=== PATIENT | female | born 2000 | race Caucasian/White ===

== ENCOUNTER 2019-05-18 15:20 | Outpatient (CLI) | payer SELFPAY ==
--- NOTE | 2019-05-18 | US_ITS ---
WS: [id number] ULTRASOUND OB TWINS HISTORY: 16 WEEKS GESTATION OF COMPARISON: None available. FETUS A Presentation: Vertex, maternal RIGHT. Placenta: Posterior, no previa or abruption. Grade 1. HEART: FHR of 146 BPM. measurements: BPD = 5.0 cm = 21w0d HC = 18.1 cm = 20w4d AC = 15.7 cm = 20w6d FL = 3.6 cm = 21w2d Normal amniotic fluid surrounds the fetus. Screening anatomy demonstrates normal intracranial structures. Spine, kidneys, stomach, bladder, abdo reece wall, three-vessel cord, extremities are normal. profile normal. AGA by ultrasound: 21 weeks 0 day BELLA by ultrasound: 09/28/2019 FETUS B Presentation: Transverse maternal LEFT. Placenta: Posterior, no previa or abruption. HEART: FHR of 148 BPM. measurements: BPD = 4.9 cm = 20w6d HC = 17.7 cm= 20w1d AC = 16.1 cm = 21w1d FL = 3.6 cm = 21w2d Normal amniotic fluid surrounds the fetus. Screening anatomy demonstrates normal intracranial structures. Spine, kidneys, stomach, bladder, abdo reece wall, three-vessel cord, extremities are normal. profile and limited. AGA by ultrasound: 21 weeks 0 day BELLA by ultrasound: 09/28/2019 US/US OB >= 14 wk fetus twins IMPRESSION: 1. Twin gestation A. * Vertex maternal RIGHT. * 21 weeks 0 day with an EDC of 09/28/2019. * Normal screening anatomic survey. 2. Twin gestation B. * Transverse on maternal LEFT. * 21 weeks 0 day with an EDC of 09/28/2019. * Normal screening anatomic survey. Limited profile. 3. Normal amniotic fluid. Chronicity and amnionicity is difficult to determine at this late gestational age. There is a membrane measuring 2 mm. O nly a single placenta was evident.
== END 2019-05-18 15:21 | disposition home or self-care (01) ==
PROVIDERS: Family Provider Family Medicine; Visit Provider Family Medicine
DX: Z76.89 Persons encountering health services in other specified circumstances (principal)

== ENCOUNTER 2019-06-07 21:35 | Outpatient (CLI) | payer MEDICAID, SELFPAY ==
[2019-06-07] VITALS (13 sets, daily range): BP systolic 0–164; BP diastolic 0–100; PULSE 84–101; O2SAT 100; BMI 35.6
[2019-06-07] MEDS: labetalol 200 mg Tablet PO (22:36)
[2019-06-07] MEDS: pantoprazole DR 40 mg Tablet PO (22:36)
[2019-06-07 22:54] LABS: Bacteria Urine 1+; Bilirubin Urine Neg (NEGATIVE); Blood Urine Neg (Negative); Glucose Urine UA 1+ (Normal); Ketones Urine Negative (Negative); Leukocyte Esterase Urine Negative (Negative); Mucus Urine 1+; Nitrate Urine Negative (Negative); Protein Urine Neg (Negative); RBC Urine 0-4 /hpf (0-2); Squamous Epithelial Cell Urine 25-40 (0-5); Urine Appearance Clear (CLEAR); Urine Color Yellow (Yellow); Urobilinogen Urine Norm (Negative); WBC Urine 0-4 /hpf (0-5); pH Urine 6 (5-7)
== END 2019-06-07 23:30 | disposition home or self-care (01) ==
LOC: OPOB 21:48 → OBGYN 23:30 → OPOB 06-08 14:18
PROVIDERS: Family Provider Family Medicine; Visit Provider Family Medicine
DX: O26.899 Other specified pregnancy related conditions, unspecified trimester (principal); Z3A.00 Weeks of gestation of pregnancy not specified; R10.9 Unspecified abdominal pain
CPT/HCPCS: 81001; 99211

== ENCOUNTER 2019-06-15 08:30 | Inpatient (IN) | payer MEDICAID, SELFPAY ==
[2019-06-14 19:31] VITALS: TEMP 36.6
[2019-06-14 19:33] VITALS: BMI 35.6
[2019-06-14] MEDS: labetalol 200 mg Tablet PO (19:43)
[2019-06-14 20:10] LABS: Bacteria Urine 1+; Bilirubin Urine Neg (NEGATIVE); Blood Urine Neg (Negative); Glucose Urine UA Norm (Normal); Ketones Urine Negative (Negative); Leukocyte Esterase Urine Negative (Negative); Nitrate Urine Negative (Negative); Protein Urine Neg (Negative); RBC Urine RARE /hpf (0-2); Urine Appearance Clear (CLEAR); Urine Color Yellow (Yellow); Urobilinogen Urine Norm (Negative); WBC Urine RARE /hpf (0-5); pH Urine 6 (5-7)
[2019-06-14 20:35] VITALS: TEMP 37
[2019-06-14] MEDS: magnesium sulfate premix 4 GM/100 ML PREMIX IV (21:11)
[2019-06-14] MEDS: dextrose 5%-lactated ringers 1,000 ML 75 ML IV (21:11)
[2019-06-14] MEDS: magnesium sulfate premix 20 GM/500 ML BAG IV (21:12)
[2019-06-14 21:50] LABS: Basophils % 0.3 %; Eosinophils # 0.1 10^3/uL (0.0-0.8); Eosinophils % 0.5 %; Hematocrit 31.6 % (37.0-47.0); Lymphocytes # 2.4 10^3/uL (0.8-4.8); Mean Corpuscular HGB Conc 31.6 g/dL (30.0-36.0); Mean Corpuscular Hemoglobin 28.5 pg (28.0-34.0); Mean Platelet Volume 12.9 fL (7.4-10.4); Monocytes % 9.4 %; Neutrophils % 66.5 %; Nucleated Red Blood Cells % 0 %; Platelet Count 173 10^3/cmm (130-400); Red Blood Count 3.51 10^6/uL (4.1-5.3); Red Cell Distribution Width 14.1 % (12.1-15.1); White Blood Count 10.5 10^3/uL (4.0-10.0)
[2019-06-14 22:13] LABS: Alanine Aminotransferase 42 U/L (0-33); Alkaline Phosphatase 118 IU/L (35-105); Anion Gap 15.6 (5-19); Aspartate Amino Transferase 27 U/L (0-32); Blood Urea Nitrogen 9 mg/dL (6-20); Calcium 9.1 mg/dL (8.5-10.5); Carbon Dioxide 21 mmol/L (22-29); Chloride 103 mmol/L (98-107); Glomerular Filtration Rate 126.2 mL/min (90-130); Glucose 113 mg/dL (65-115); Magnesium 3.9 mg/dL (1.7-2.3); Osmolality Calculated 279 mOsm/kg (285-295); Potassium 3.6 mmol/L (3.5-5.1); Sodium 136 mmol/L (136-145); Total Bilirubin 0.2 mg/dL (0.15-1.2)
[2019-06-15] VITALS (159 sets, daily range): BP systolic 91–167; BP diastolic 47–81; PULSE 72–110; RESP 17; TEMP 36.7–37; O2SAT 95–100
[2019-06-15 03:25] LABS: Magnesium Level (OB Only) 6.3 mg/dL (5.0-7.5)
[2019-06-15] MEDS: dextrose 5%-lactated ringers 1,000 ML 75 ML IV ×2 (04:35→17:59)
[2019-06-15] MEDS: magnesium sulfate premix 20 GM/500 ML BAG IV ×2 (05:45→15:39)
--- NOTE | 2019-06-15 06:21 | US_ITS ---
WS: [id number] ULTRASOUND OB LIMITED TECHNIQUE: Limited ultrasound examination of the fetus. CLINICAL INFORMATION: Decreased variability of baby B COMPARISON: May 18, 2019 FINDINGS: Twin interuterine gestation with single placenta and intervening septum Placental location is posterior. Placenta grade: 0. heart rate 133 BPM for twin A and B. Normal GILDARDO TWIN A AND B Biophysical profile 8 out of 8. breathin movement: 2 tone: 2 Amniotic fluid: 2 IMPRESSION Twin A and B Normal biophysical profile 8 out of 8
[2019-06-15] MEDS: acetaminophen 500 mg Tablet 1000 MG PO (06:39)
[2019-06-15] MEDS: labetalol 200 mg Tablet PO (06:49)
--- NOTE | 2019-06-15 07:48 | PM.HP ---
Providers/Chief Complaint Admitting Physician: Brenden Mejia MD Chief Complaint: thick vaginal discharge History of Present Illness Calli Morales is a 19 year old 1 female who is 25 weeks with twins. She has had intermittent pelvic pain throughout a good part of the . Recently she completed a course of metronidazole for vaginitis. She began having some pelvic pain beginning yesterday morning early. The pain seemed to go intermittent. She also lost some mucus and felt that she may have lost her mucous plug . [facility] labor and delivery yesterday evening with this complaint. Monitoring found her to be having contractions every 1-1/2 to 2 minutes and initially she stated that she was not feeling them at all. Later, she admitted to feeling them about a level 4-5. Gentle vaginal exam found her to be about 1 cm dilated and kin every 1-1/2 to 2 minutes. A decision was made to admit her and place her on magnesium for tocolyse this at that time. She denied any burning on urination, fever or chills. Evaluation with urinalysis and laboratory evaluation was pretty much normal last night. The 's have been placed on the monitor intermittently with some decreased variability now. Baby B had an occasional decelerations but overall by my evaluation the heart tones have been reassuring. The 's have a little bit decreased variability now with magnesium on board. Her contractions have almost completely stopped with the magnesium. Review of Systems Narrative: Patient has had elevated blood pressure but is extremely anxious this time. She also has had nausea and vomiting this morning although that is resolved after emesis. Const: Reports: change in appetite; Denies: fever or chills Eyes: Denies: change in vision or blurry vision ENMT: Denies: swelling of lips/tongue, oral sores/lesions, nasal congestion or nasal obstruction Card: Denies: chest pain, palpitations, irregular heart rhythm, edema or shortness of breath when lying down Resp: Denies: shortness of breath, productive cough, non-productive cough, wheezing or chest congestion GI: Reports: abdominal pain (Intermittent, this is resolved mostly.), nausea and vomiting; Denies: difficulty swallowing, heartburn/indigestion or rectal pain : Reports: urinary frequency and vaginal discharge (This is decreased now.); Denies: flank pain, difficulty urinating, blood in urine, genital itching, vaginal odor or vaginal bleeding Musc: Reports: back pain; Denies: neck pain, extremity swelling, muscle cramps or muscle weakness Skin/Breast: Denies: rash, itching or new lesion Neuro: Denies: weakness in extremities, difficulty walking or slurred speech Psych: Denies: anxiety, depression or memory loss Carlos/Lymph: Denies: easy bruising or enlarged lymph nodes Medications/Allergies Allergies Allergy/AdvReac Type Severity Reaction Status Date / Time Penicillins Allergy ALGY-Hives Verified 06/08/19 00:15 [facility] Acute Female Reproductive History: : 1 Vitals/I&O/Wt Last Vital Signs Temp 98.6 F 06/15/19 00:00 06/14/19 06/15/19 06/15/19 22:59 06:59 14:59 Intake Total 982.5 / 982.5 Output Total 45 / 45 1155 / 1200 Balance -45 / -45 -172.5 / -217.5 Weight last 48 hrs Weight 94.347 kg Weight 94.347 kg Physical Exam Const: COMMON NORMALS: no apparent distress, average body habitus, no limitations and healthy appearing EXAM LIMITATIONS: no physical limitations GENERAL APPEARANCE: cooperative, comfortable and anxious; not in distress ORIENTATION/CONSCIOUSNESS: Yes awake HENMT: COMMON NORMALS: moist oral mucous membranes HEAD & SCALP: normal to inspection Neck/C-Spine: COMMON NORMALS: full ROM, no lymphadenopathy and supple Resp: COMMON NORMALS: normal respiratory effort, no retractions, no use of accessory muscles and clear to auscultation bilaterally Cardio: COMMON NORMALS: no JVD, regular rate, regular rhythm, S1 normal heart sound, S2 normal heart sound, no clicks and no murmurs PERIPHERAL PULSES: pulses 2+ throughout (No significant edema.) GI: COMMON NORMALS: normal to inspection, nondistended, normoactive bowel sounds (Obviously .), soft to palpation and non-tender Back/Pelvis: COMMON NORMALS: no CVA tenderness Extremity: COMMON NORMALS: normal to inspection, full ROM and normal capillary refill Neuro: SENSORIUM/ORIENTATION: Yes alert SPEECH: speech normal GAIT: Yes normal gait Psych: APPEARANCE: Yes grossly normal ATTITUDE: Yes other (Slightly anxious.) Urinary Catheter Management^: Michelle: Cath Placed During This Visit: yes Urinary Catheter Date of Insertion: 06/14/19 Urinary Catheter Time of Insertion: 21:46 Data : 06/14/19 21:36 06/14/19 21:36 A&P Assessment and plan (1) Twin in second trimester: Biophysical profile done this morning demonstrates both infants at 8 out of 8 and therefore I am comfortable that other than the labor infants are doing well at this time. Status: Acute Code(s): O30.002 - Twin , unspecified number of placenta and unspecified number of amniotic sacs, second trimester (2) uterine contractions in second trimester, antepartum: 1. Will treat this as labor. The contractions have almost completely cleared with magnesium intravenously. Continue magnesium protocol at this time. 2. Betamethasone 12 mg IM daily x2 3. We will begin nifedipine XL 30 mg twice daily for continued tocolyse this and to help with blood pressure control. Status: Acute Code(s): O47.02 - False labor before 37 completed weeks of gestation, second trimester (3) induced hypertension, antepartum: 1. She has been given 2 total doses of labetalol with good results at that time. However, will switch to nifedipine XL for assistance with tocolysis this morning. We will watch closely for response and make adjustments in medication dosage as needed. Status: Acute Code(s): O13.9 - Gestational [-induced] hypertension without significant proteinuria, unspecified trimester Attestations Medical Necessity Statement*: This patient has a 25-week intrauterine with twins and has labor and -induced hypertension. She requires inpatient hospital stay probably greater than 2 midnights. She will require at least 24 hours more of intravenous magnesium with attempt to switch to oral nifedipine over the next 24 hours if she tolerates and if continues to provide tocolysis.. Time Spent in Patient Care: 16 - 35 minutes Coding Level of Care Code Acute Hebrew Professor for g Fwd Exam Comprehensive Diagnoses Twin in second trimester O30.002 uterine contractions in second trimester, antepartum O47.02 induced hypertension, antepartum O13.9
[2019-06-15] MEDS: betamethasone susp 6 mg/mL 5 mL 12 MG IM (08:31)
[2019-06-15] MEDS: NIFEdipine ER (24 hr) 30 mg Tablet PO ×2 (08:33→17:59)
[2019-06-16] VITALS (201 sets, daily range): BP systolic 0–160; BP diastolic 0–85; PULSE 61–105; RESP 16–17; TEMP 36.7–36.8; O2SAT 54–100
[2019-06-16] MEDS: magnesium sulfate premix 20 GM/500 ML BAG IV ×2 (02:00→13:59)
[2019-06-16 02:15] LABS: Magnesium Level (OB Only) 7.1 mg/dL (5.0-7.5)
[2019-06-16] MEDS: ondansetron 2 mg/ML SDV 2 mL 4 MG IVP ×2 (04:47→14:34)
[2019-06-16] MEDS: dextrose 5%-lactated ringers 1,000 ML 75 ML IV (06:44)
--- NOTE | 2019-06-16 07:17 | P.PN_ITS ---
Subjective Subjective: Interval history: Patient had some nausea earlier this morning which resolved with ondansetron. She has had no emesis. She has had no significant contractions and heart tones have looked good when monitored. Blood pressures have been 120s to 140 over 70s to 80s. Vitals/I&O/Wt Last Vital Signs Temp 98.1 F 06/15/19 10:40 Pulse 92 06/16/19 06:48 Resp 17 06/15/19 10:40 BP 125/67 06/16/19 06:48 Pulse Ox 96 06/16/19 07:09 06/15/19 06/16/19 06/16/19 22:59 06:59 14:59 Intake Total 2682.500 / 2802.500 1101.250 / 3903.750 Output Total 1150 / 2300 730 / 3030 Balance 1532.500 / 502.500 371.250 / 873.750 Weight last 48 hrs Weight 94.347 kg Weight 94.347 kg Physical Exam Const: COMMON NORMALS: no apparent distress and well nourished GENERAL APPEARANCE: cooperative and comfortable Chest: COMMONS NORMALS: inspection of chest normal Resp: COMMON NORMALS: normal respiratory effort, no retractions and no use of accessory muscles Cardio: COMMON NORMALS: regular rate, regular rhythm and no murmurs RATE: regular rate RHYTHM: regular rhythm GI: COMMON NORMALS: soft to palpation and non-tender PALPATION: Yes soft Extremity: COMMON NORMALS: normal to inspection, full ROM, normal capillary refill and no pedal edema Psych: COMMON NORMALS: mental status grossly normal, thought process normal, cooperative and activity/motor behavior normal THOUGHT PROCESS: normal thought process Urinary Catheter Management^: Michelle: Cath Placed During This Visit: yes Reason for Continuing Indwelling Catheter: Accurate Measurement of Urinary Output in Critically Ill Patients Urinary Catheter Date of Insertion: 06/14/19 Urinary Catheter Time of Insertion: 21:46 Data : 06/14/19 21:36 06/14/19 21:36 A&P Assessment and plan (1) induced hypertension, antepartum: Blood pressures are in much better control with nifedipine extended release twice daily as well as intravenous magnesium. The magnesium will be discontinued this morning and will monitor closely. The patient began having stronger contractions off of magnesium and therefore was begun back on magnesium at 2Grams/Hr and Nifedipine was increased to 60mg ER bid. Will monitor closely and will not attempt to wean off of Magnesium till at least Saturday Status: Acute Code(s): O13.9 - Gestational [-induced] hypertension without significant proteinuria, unspecified trimester (2) uterine contractions in second trimester, antepartum: No significant contractions since the magnesium was started. Nifedipine was started yesterday morning and will discontinue the magnesium today and monitor for increased contractions or problems. Mom will be receiving her second dose of betamethasone IM this morning. Magnesium restarted this afternoon as contractions resumed off of Magnesium. Status: Acute Code(s): O47.02 - False labor before 37 completed weeks of gestation, second trimester (3) Twin in second trimester: Biophysical profile on both infants look good yesterday with no significant problems. She is at risk for labor and delivery secondary to twin . Status: Acute Code(s): O30.002 - Twin , unspecified number of placenta and unspecified number of amniotic sacs, second trimester Attestations Medical Necessity Statement*: Patient has had labor and - induced hypertension with a twin and has required hospitalization. If patient continues to do well she may be able to be discharged this evening. There is a possibility she will require 1 more midnight hospital stay. Coding Level of Care Code Acute Police Superintendent for [place] Fwd Exam Detailed Diagnoses induced hypertension, antepartum O13.9 uterine contractions in second trimester, antepartum O47.02 Twin in second trimester O30.002
[2019-06-16] MEDS: betamethasone susp 6 mg/mL 5 mL 12 MG IM (08:44)
[2019-06-16] MEDS: NIFEdipine ER (24 hr) 30 mg Tablet PO ×2 (08:45→13:58)
[2019-06-16] MEDS: dextrose 5%-lactated ringers 1,000 ML 100 ML IV (13:58)
--- NOTE | 2019-06-16 14:18 | PC.NURSE ---
Pt called out c/o severe abd pain. Redan placed at this time. Abd very firm.
[2019-06-16] MEDS: fentaNYL 50 mcg/mL INJ 2mL 25 MCG IVP (15:59)
[2019-06-16] MEDS: NIFEdipine ER (24 hr) 30 mg Tablet 60 MG PO (19:38)
[2019-06-16 19:48] LABS: Magnesium Level (OB Only) 6.3 mg/dL (5.0-7.5)
[2019-06-16] MEDS: pantoprazole DR 40 mg Tablet PO (21:37)
[2019-06-16] MEDS: fentaNYL 50 mcg/mL INJ 2mL IVP ×2 (21:38→23:59)
[2019-06-17] VITALS (67 sets, daily range): BP systolic 0–161; BP diastolic 0–84; PULSE 72–112; RESP 16–20; TEMP 36.7–36.9; O2SAT 97–98
[2019-06-17] MEDS: dextrose 5%-lactated ringers 1,000 ML 75 ML IV (01:08)
[2019-06-17] MEDS: magnesium sulfate premix 20 GM/500 ML BAG IV ×2 (01:09→14:16)
[2019-06-17 01:34] LABS: Magnesium Level (OB Only) 7.7 mg/dL (5.0-7.5)
[2019-06-17] MEDS: fentaNYL 50 mcg/mL INJ 2mL IVP ×8 (02:32→19:13)
[2019-06-17] MEDS: ondansetron 2 mg/ML SDV 2 mL 4 MG IVP ×2 (04:58→18:49)
--- NOTE | 2019-06-17 06:40 | US_ITS ---
WS: [id number] RIGHT UPPER QUADRANT ULTRASOUND HISTORY: Right upper quadrant abdominal pain COMPARISON: None available. Liver: 12.1 cm in length. Normal size and echogenicity with no intrahepatic dilatation. No mass. Gallbladder: Normally distended gallbladder. There are stones and sludge in the gallbladder. There ar e numerous small stones within the gallbladder. No wall thickening or edema. CBD: 0.8 cm, common bile duct is slightly dilated. Pancreas: Obscured by bowel gas. Right kidney: 11.8 cm in length. Normal size kidney with mild dilatation of the renal pelvis. Aorta and IVC: Unremarkable. No ascites. US/US gall bladder [id number] IMPRESSION: 1. Cholelithiasis and sludge. 2. Mild dilatation of the common bile duct. Suspicious for choledocholithiasis . The stones within the gallbladder very tiny and there could be a small stone with partial obstruction in the duct. MRCP may be necessary for further evaluat ion. 3. Minimal dilatation RIGHT renal pelvis.
--- NOTE | 2019-06-17 06:43 | PM.PN ---
Subjective Subjective: Interval history: Patient began having contractions again a few hours after stopping the magnesium yesterday. Therefore, the magnesium was restarted at 2 g an hour. Magnesium level this morning early was a little elevated at 7.7 therefore the magnesium dose was decreased to 1.5 g an hour. She is not kin and the heart tones have looked reassuring. However, she has developed right upper quadrant and epigastric pain which is unrelated to contractions. She has no fever and no chills. She has had some nausea with no emesis. She is having normal bowel movements. Vitals/I&O/Wt Last Vital Signs Temp 98.0 F 06/16/19 17:45 Pulse 93 06/17/19 06:35 Resp 16 06/17/19 06:42 BP 149/78 06/17/19 06:35 Pulse Ox 98 06/17/19 02:10 06/16/19 06/16/19 06/17/19 14:59 22:59 06:59 Intake Total 666.667 / 666.667 879.167 / 6552.273 4733.333 / 2599.167 Output Total 600 / 600 350 / 950 850 / 1800 Balance 66.667 / 66.667 529.167 / 595.834 203.333 / 799.167 Physical Exam Const: COMMON NORMALS: alert and well nourished GENERAL APPEARANCE: cooperative ORIENTATION/CONSCIOUSNESS: Yes awake Chest: COMMONS NORMALS: inspection of chest normal Resp: COMMON NORMALS: normal respiratory effort, no retractions, no use of accessory muscles and clear to auscultation bilaterally AUSCULTATION: clear to auscultation bilaterally Cardio: COMMON NORMALS: regular rate, regular rhythm and no murmurs RATE: regular rate RHYTHM: regular rhythm GI: COMMON NORMALS: negative for no masses (She is .) PALPATION: Yes tender Details: RUQ (Significant tenderness in the right upper quadrant with no significant guarding.) Extremity: COMMON NORMALS: normal to inspection and full ROM Neuro: SENSORIUM/ORIENTATION: Yes alert GAIT: Yes normal gait Urinary Catheter Management^: Michelle: Cath Placed During This Visit: yes, but has since been removed by the nurse Reason for Continuing Indwelling Catheter: Decision to DC Catheter Urinary Catheter Date of Insertion: 06/14/19 Urinary Catheter Time of Insertion: 21:46 Date Urinary Catheter Removed: 06/16/19 Time Urinary Catheter Discontinued: 07:52 Data : 06/14/19 21:36 06/14/19 21:36 A&P Assessment and plan (1) induced hypertension, antepartum: Blood pressure is stable at present time with present medications. Status: Acute Code(s): O13.9 - Gestational [-induced] hypertension without significant proteinuria, unspecified trimester (2) uterine contractions in second trimester, antepartum: Contractions are now controlled on magnesium and nifedipine. Status: Acute Code(s): O47.02 - False labor before 37 completed weeks of gestation, second trimester (3) Twin in second trimester: appears to be going well with good and reassuring heart tones. Status: Acute Code(s): O30.002 - Twin , unspecified number of placenta and unspecified number of amniotic sacs, second trimester (4) Right upper quadrant abdominal pain: Significant right upper quadrant pain consistent with gallbladder dysfunction versus cholecystitis. Will check ultrasound this morning for evaluation. We will also treat as indicated. Status: Acute Code(s): R10.11 - Right upper quadrant pain Attestations Medical Necessity Statement*: This patient has significant medical problems with twin and labor. She is requiring intravenous magnesium to control her contractions and requires further hospital stay. I expect this hospital stay to be greater than 2 more midnights. Time Spent in Patient Care: 16 - 35 minutes Coding Level of Care Code Acute General Service Technician for [employer] Fw[employer]ito Diagnoses induced hypertension, antepartum O13.9 uterine contractions in second trimester, antepartum O47.02 Twin in second trimester O30.002 Right upper quadrant abdominal pain R10.11
[2019-06-17 07:28] LABS: Magnesium Level (OB Only) 7.7 mg/dL (5.0-7.5)
--- NOTE | 2019-06-17 07:46 | PC.NURSE ---
Critical Lab Assessment Critical Magnesium level called to Dr. Mejia at 0735, he was already aware of elevated level due to magnesium infusion rate being 2 grams/hr until 0500, so results not demonstrating the change at this time. Orders received to continue with 1.5 grams/hour and Q6Hour magnesium levels drawn.
[2019-06-17] MEDS: NIFEdipine ER (24 hr) 30 mg Tablet 60 MG PO ×2 (09:26→17:45)
[2019-06-17] MEDS: pantoprazole DR 40 mg Tablet PO ×2 (09:29→17:45)
--- NOTE | 2019-06-17 11:54 | MR_ITS ---
WS: [id number] MRCP, 06/17/2019 Clinical Data: possible choledocholithiasis Comparison: Gallbladder ultrasound, 06/17/2019 Findings: The pancreas is normal with no evidence of any pancreatitis, pseudocyst, abscess, mass or ductal dila tion. The distal pancreatic duct empties normally into the descending duodenum with no evidence of any stri cture or intraluminal defect. The gallbladder shows small stones within. The common bile duct shows no definite intraluminal filling defects. The liver, spleen, kidneys, stomach, abdominal aorta and inferior vena cava are unremarkable. There i s a twin intrauterine . MR/MR MRCP [id number] Impression: 1. Negative for definite common bile duct stone. 2. Slightly dilated gallbladder with small stones within. 3. When .
--- NOTE | 2019-06-17 12:08 | P.CONIM_ITS ---
Providers/Reason For Consult Consulting Physican/Specialty*: General Surgery Hunter Le MD Reason for Consult*: Possible gallbladder problems during . Attending Physician: Brenden Mejia MD History of Present Illness History of Present Illness Calli Morales is a 19 year old female who was recently admitted for labor. She is carrying twins and is at 25 weeks gestation. She has been on magnesium and her contractions have slowed down. This morning she developed right upper quadrant pain that went around to the right side of her back. She has been nauseated with it. She feels gassy and bloated but says I thought that was just normal stuff. The patient had an ultrasound which revealed cholelithiasis and gallbladder sludge. The common bile duct was felt to be slightly dilated at 8 mm. In talking to the patient, she has been having episodes of right upper quadrant pain after eating greasy food and potatoes over the past 4 to 6 weeks. She develops nausea and vomiting with this. In short, it sounds like she has been dealing with symptoms of biliary colic over that time period. Review of Systems General: Reports: 10 or more systems reviewed and unremarkable except in HPI and below GI: Reports: abdominal pain, nausea and vomiting : Reports: urinary frequency Meds/Allergies Home Medications and Allergies Home Medications Medication Instructions Recorded Confirmed Type PNV cmb#95-ferrous fumarate-FA 1 tab PO DAILY 06/08/19 06/15/19 History [] Allergies Allergy/AdvReac Type Severity Reaction Status Date / Time Penicillins Allergy ALGY-Hives Verified 06/08/19 00:15 Current Medications Current Medications Generic Name Dose Route Start Last Admin Trade Name Freq PRN Reason Stop Dose Admin Fentanyl 25 - 100 mcg 06/16/19 21:25 06/17/19 10:17 Sublimaze IVP 50 mcg Q1H PRN Administration SEVERE PAIN Dextrose/Lactated Ringer's 1,000 mls @ 125 mls/hr 06/14/19 20:45 06/17/19 01:08 Dextrose 5%-Lactated Ringers IV 75 mls/hr .Q8H YAHIR Administration Magnesium Sulfate 20 gm in 500 mls @ 50 mls/hr 06/14/19 20:45 06/17/19 07:00 Magnesium Sulfate Premix IV Infused .Q10H YAHIR Infusion Dextrose/Lactated Ringer's 1,000 mls @ 125 mls/hr 06/16/19 13:30 06/17/19 07:00 Dextrose 5%-Lactated Ringers IV Infused .Q8H YAHIR Infusion Magnesium Sulfate 20 gm in 500 mls @ 50 mls/hr 06/16/19 13:30 06/17/19 04:51 Magnesium Sulfate Premix IV 37.5 mls/hr .Q10H YAHIR Infusion Nifedipine 60 mg 06/16/19 19:15 06/17/19 09:26 Procardia Xl PO 60 mg BID YAHIR Administration Ondansetron HCl 4 mg 06/16/19 04:07 06/17/19 04:58 Zofran IVP 4 mg Q4H PRN Administration NAUSEA AND VOMITING Pantoprazole Sodium 40 mg 06/16/19 21:24 06/17/19 09:29 Protonix PO 40 mg BID YAHIR Administration PFSH Acute PFSH: Medical History (Updated 06/17/19 @ 12:16 by Hunter Le MD) No significant past medical history Surgical History (Updated 06/17/19 @ 12:16 by Hunter Le MD) No significant past surgical history Female Reproductive History: Date of last menstrual period: 07/23/18 : 1 Vitals/I&O/Wt Last Vital Signs Temp 98.2 F 06/17/19 10:25 Pulse 90 06/17/19 11:34 Resp 17 06/17/19 10:25 BP 152/70 06/17/19 11:34 Pulse Ox 98 06/17/19 02:10 06/16/19 06/17/19 06/17/19 22:59 06:59 14:59 Intake Total 1160.417 / 2816.250 989.166 / 2816.250 0 / 0 Output Total 350 / 1800 850 / 1800 250 / 250 Balance 810.417 / 1016.250 139.166 / 1016.250 -250 / -250 Physical Exam Narrative: EXAM NARRATIVE: The patient was encountered upon the obstetrics floor. She does not appear to be in any acute distress. The pupils are equal. No carotid bruits are heard. The lungs are clear anteriorly. The heart is regular. The abdomen is gravid. She does have some tenderness fairly well isolated to the right upper quadrant. Her abdomen is somewhat firm with some guarding. The extremities reveal no significant edema. Neurologically the patient appears to be grossly intact. Urinary Catheter Management^: Michelle: Cath Placed During This Visit: yes, but has since been removed by the nurse Reason for Continuing Indwelling Catheter: Decision to DC Catheter Urinary Catheter Date of Insertion: 06/14/19 Urinary Catheter Time of Insertion: 21:46 Date Urinary Catheter Removed: 06/16/19 Time Urinary Catheter Discontinued: 07:52 Data Imaging^: US: Radiologist's impression: IMPRESSION: 1. Cholelithiasis and sludge. 2. Mild dilatation of the common bile duct. Suspicious for choledocholithiasis. The stones within the gallbladder very tiny and there could be a small stone with partial obstruction in the duct. MRCP may be necessary for further evaluation. 3. Minimal dilatation RIGHT renal pelvis. A&P Assessment and plan (1) Biliary colic: It sounds to me like the patient has been having symptoms of biliary colic over the past 4 to 6 weeks. Given her mild dilatation of her common bile duct on ultrasound this morning, consideration has to be given to the possibility of choledocholithiasis. I am going to check a liver profile in addition to a serum amylase/lipase. After discussing the issue with Dr. Mejia, I am also going to order an MRCP; if she does have evidence of choledocholithiasis I want to make sure that we know this as soon as possible given her current . Further recommendations will be pending the results of the above. Status: Acute Code(s): K80.50 - Calculus of bile duct without cholangitis or cholecystitis without obstruction Consult Attestations Medical Necessity Statement: See admitting service's notation. Coding Level of Care Code Acute Regional Economist for Nell Nery Diagnoses Biliary colic K80.50
[2019-06-17 12:52] LABS: Basophils % 0.1 %; Hematocrit 31.4 % (37.0-47.0); Hemoglobin 9.8 g/dL (11.5-15.3); Lymphocytes # 1.9 10^3/uL (0.8-4.8); Lymphocytes % 13.4 %; Mean Corpuscular HGB Conc 31.2 g/dL (30.0-36.0); Mean Corpuscular Hemoglobin 28.2 pg (28.0-34.0); Mean Corpuscular Volume 90.2 fL (81-99); Mean Platelet Volume 13.2 fL (7.4-10.4); Monocytes # 1.3 10^3/uL (0.2-0.9); Neutrophils # 11.1 10^3/uL (1.8-7.7); Neutrophils % 77.2 %; Nucleated Red Blood Cells % 0 %; Platelet Count 221 10^3/cmm (130-400); Red Blood Count 3.48 10^6/uL (4.1-5.3); Red Cell Distribution Width 14.5 % (12.1-15.1); White Blood Count 14.3 10^3/uL (4.0-10.0)
--- NOTE | 2019-06-17 12:56 | PC.NURSE ---
Lab called, stated patient's blood hemolyzed. She stated one of the phlebotomists would go over to [facility] where patient is getting an MRI to redraw.
[2019-06-17 13:41] LABS: Alanine Aminotransferase 62 U/L (0-33); Albumin Level 2.9 g/dL (3.5-5.2); Alkaline Phosphatase 133 IU/L (35-105); Amylase 182 U/L (28-100); Anion Gap 16.6 (5-19); Aspartate Amino Transferase 45 U/L (0-32); Blood Urea Nitrogen 9 mg/dL (6-20); Calcium 7.7 mg/dL (8.5-10.5); Carbon Dioxide 20 mmol/L (22-29); Chloride 101 mmol/L (98-107); Globulin 3.2 g/dL (1.3-4.6); Glomerular Filtration Rate 90.5 mL/min (90-130); Glucose 111 mg/dL (65-115); Osmolality Calculated 275 mOsm/kg (285-295); Potassium 3.6 mmol/L (3.5-5.1); Sodium 134 mmol/L (136-145); Total Bilirubin 0.2 mg/dL (0.15-1.2); Total Protein 6.1 g/dL (6.6-8.7)
--- NOTE | 2019-06-17 13:46 | PC.NURSE ---
MRI Patient transported to [facility] by wheelchair by this nurse for MRI to be performed.
[2019-06-17 13:54] LABS: Lipase 840 U/L (13-60)
[2019-06-17 13:59] LABS: Magnesium Level (OB Only) 6.8 mg/dL (5.0-7.5)
[2019-06-17] MEDS: dextrose 5%-lactated ringers 1,000 ML 87.5 ML IV (14:15)
[2019-06-17 19:28] LABS: Magnesium Level (OB Only) 6.7 mg/dL (5.0-7.5)
[2019-06-17] MEDS: docusate sodium 100 mg Capsule PO (21:47)
[2019-06-18] VITALS (268 sets, daily range): BP systolic 0–161; BP diastolic 0–80; PULSE 75–114; RESP 18–25; TEMP 36.6–37.1; O2SAT 80–98
[2019-06-18] MEDS: dextrose 5%-lactated ringers 1,000 ML 87.5 ML IV ×3 (01:34→12:04)
[2019-06-18 01:42] LABS: Anion Gap 15.5 (5-19); Blood Urea Nitrogen 13 mg/dL (6-20); Calcium 7.3 mg/dL (8.5-10.5); Carbon Dioxide 21 mmol/L (22-29); Chloride 100 mmol/L (98-107); Glomerular Filtration Rate 90.5 mL/min (90-130); Glucose 126 mg/dL (65-115); Osmolality Calculated 274 mOsm/kg (285-295); Potassium 3.5 mmol/L (3.5-5.1); Sodium 133 mmol/L (136-145)
[2019-06-18 01:59] LABS: Basophils % 0.2 %; Eosinophils % 0.1 %; Hemoglobin 9.7 g/dL (11.5-15.3); Lymphocytes # 1.3 10^3/uL (0.8-4.8); Lymphocytes % 7.6 %; Mean Corpuscular HGB Conc 30.3 g/dL (30.0-36.0); Mean Corpuscular Hemoglobin 28.1 pg (28.0-34.0); Mean Corpuscular Volume 92.8 fL (81-99); Mean Platelet Volume 13.1 fL (7.4-10.4); Monocytes # 1.5 10^3/uL (0.2-0.9); Monocytes % 8.5 %; Neutrophils # 14.4 10^3/uL (1.8-7.7); Neutrophils % 83.3 %; Nucleated Red Blood Cells % 0 %; Platelet Count 174 10^3/cmm (130-400); Red Blood Count 3.45 10^6/uL (4.1-5.3); Red Cell Distribution Width 14.5 % (12.1-15.1); White Blood Count 17.3 10^3/uL (4.0-10.0)
[2019-06-18 02:31] LABS: Magnesium Level (OB Only) 7.3 mg/dL (5.0-7.5)
[2019-06-18 02:33] LABS: Lipase 398 U/L (13-60)
[2019-06-18 02:36] LABS: Slide Review Slide Review Perform
[2019-06-18 02:47] LABS: Alanine Aminotransferase 58 U/L (0-33); Albumin Level 2.9 g/dL (3.5-5.2); Alkaline Phosphatase 127 IU/L (35-105); Amylase 134 U/L (28-100); Aspartate Amino Transferase 36 U/L (0-32); Globulin 3.2 g/dL (1.3-4.6); Total Bilirubin 0.3 mg/dL (0.15-1.2); Total Protein 6.1 g/dL (6.6-8.7)
[2019-06-18] MEDS: magnesium sulfate premix 20 GM/500 ML BAG IV ×3 (03:36→15:47)
--- NOTE | 2019-06-18 06:31 | PC.NURSE ---
Pts. breathing has increased and O2 level is 91%. I woke pt. up and had her take several deep breaths that raised her O2 to 92%. Pt. was placed in high-davila's and pt. was instructed to take several deep breaths. O2 went up to 94%. When pt. relaxes and starts to drift of to sleep her O2 goes back down to 91-93%. Lung sounds are clear through out, anterior and posterior. Pt. doesn't appear to be in any acute respiratory distress. I asked pt. is she has ever been DX with sleep apnea and she reported no. I will discuss new development with Dr. Mejia.
[2019-06-18 07:38] LABS: Magnesium Level (OB Only) 6.9 mg/dL (5.0-7.5)
--- NOTE | 2019-06-18 08:41 | USCV_ITS ---
Calli Morales Age: 19 Gender: F : 2000 Exam Date: 06/18/2019 08:49 Ordering Phys: Brenden Mejia MD Technologist: Monica Neville Exam Location: [facility] [place] Indication: Increased edema HISTORY: Lower extremity edema. PROCEDURES: Comparison: none available. Venous duplex imaging was performed in bilateral lower extremities. The following venous structures were evaluated: common femoral vein, profunda vein, proximal portion of the greater saphenous vein, superficial femoral vein, and the popliteal vein. In addition, the posterior tibial and peroneal trunk were evaluated. Serial compression, augmentation maneuvers, and spectral Doppler flow evaluation were performed. FINDINGS: Normal 2-D Doppler and augmentation and compressibility throughout the lower extremity venous structures. Additional imaging through the proximal calf veins also reveals no thrombus. Limited evaluation of the greater saphenous vein is patent with no thrombus. Small bilateral inguinal lymph nodes. CONCLUSIONS No DVT bilateral lower extremities. Dr. Arely Bernard DO (Electronically Signed) Final Date: 18 June 2019 09:53 S
--- NOTE | 2019-06-18 08:43 | P.PN_ITS ---
Subjective Subjective: Interval history: The patient says she had a fairly good night. She is having some discomfort this morning, however. She says when she eats it tends to make her abdomen a little bit more sore. She would not be opposed to being on a clear liquid diet for now since she is not very hungry anyway. Vitals/I&O/Wt Last Vital Signs Temp 98.7 F 06/18/19 07:00 Pulse 93 06/18/19 08:41 Resp 20 H 06/18/19 07:00 BP 120/57 06/18/19 08:41 Pulse Ox 98 06/18/19 08:38 06/17/19 06/18/19 06/18/19 22:59 06:59 14:59 Intake Total 1222.291 / 5035.625 2545.834 / 5035.625 Output Total 1050 / 2680 1080 / 2680 Balance 172.291 / 2355.625 1465.834 / 2355.625 Physical Exam Narrative: EXAM NARRATIVE: Remains tender to exam. The patient remains afebrile. Urinary Catheter Management^: Michelle: Cath Placed During This Visit: yes, but has since been removed by the nurse Reason for Continuing Indwelling Catheter: Decision to DC Catheter Urinary Catheter Date of Insertion: 06/14/19 Urinary Catheter Time of Insertion: 21:46 Date Urinary Catheter Removed: 06/16/19 Time Urinary Catheter Discontinued: 07:52 Data : 06/18/19 01:20 06/18/19 01:20 Other Labs: Laboratory Tests 06/18/19 06/18/19 01:20 01:20 Total Bilirubin 0.3 Direct Bilirubin 0.20 AST 36 H ALT 58 H Alkaline Phosphatase 127 H Amylase 134 H Lipase 398 H A&P Assessment and plan (1) Biliary colic: I suspect the patient probably passed a small gallstone. Her transaminases, alkaline phosphatase, amylase/lipase were all improved today. White blood cell count is slightly up. Bilirubin remains normal. Despite her leukocytosis, I do not think that antibiotics are necessarily indicated at this time, but I suppose developing cholecystitis will always have to be considered. If her white blood cell count remains elevated tomorrow then consideration could be given to starting some antibiotics. Status: Acute Code(s): K80.50 - Calculus of bile duct without cholangitis or cholecystitis without obstruction Attestations Medical Necessity Statement*: See admitting service's notation. Coding Level of Care Code Acute Forensic Science Technician for g Fwd Diagnoses Biliary colic K80.50
--- NOTE | 2019-06-18 08:55 | PM.PN ---
Subjective Subjective: Interval history: Patient obviously passed a gallstone yesterday as her pain improved by yesterday afternoon and her MRCP indicated no obvious stone in the bile duct at that time. She has some increased pain in right upper quadrant this morning with movement and with eating anything. She also was noted this morning with lying flat to have a little bit lower oxygen saturations with some mild tachypnea. That improves with getting up and moving around. She denies any sharp pleuritic chest pain or feeling of dyspnea. She denies any calf tenderness but there is some mild swelling in her bilateral calves. Liver enzymes yesterday as well as lipase were mild to moderately elevated but are improved this morning. Her white blood cell count is mildly elevated. Vitals/I&O/Wt Last Vital Signs Temp 98.7 F 06/18/19 07:00 Pulse 93 06/18/19 08:41 Resp 20 H 06/18/19 07:00 BP 120/57 06/18/19 08:41 Pulse Ox 97 06/18/19 08:48 06/17/19 06/18/19 06/18/19 22:59 06:59 14:59 Intake Total 1222.291 / 2489.791 2545.834 / 5035.625 Output Total 1050 / 1600 1080 / 2680 Balance 172.291 / 539.913 5954.834 / 2355.625 Physical Exam Const: COMMON NORMALS: no apparent distress (Mild to moderately anxious.) and healthy appearing GENERAL APPEARANCE: cooperative and anxious Neck/C-Spine: COMMON NORMALS: full ROM and no JVD GENERAL: Yes normal visual inspection Resp: COMMON NORMALS: normal respiratory effort, no retractions and no use of accessory muscles Cardio: COMMON NORMALS: no JVD, regular rate, regular rhythm and no murmurs RATE: regular rate RHYTHM: regular rhythm GI: COMMON NORMALS: negative for no masses (She is .) PALPATION: Yes tender (Moderate right upper quadrant tenderness.) Details: RUQ : COMMON NORMALS: Yes no CVA tenderness BLADDER/KIDNEY EXAM: Yes no CVA tenderness Back/Pelvis: COMMON NORMALS: no CVA tenderness Extremity: COMMON NORMALS: full ROM and normal capillary refill; negative for no calf tenderness (Mild calf tenderness and trace to 1+ edema in lower extremities.) Neuro: COMMON NORMALS: CN's II-XII intact bilaterally and moves all extremities Psych: COMMON NORMALS: mental status grossly normal and cooperative ATTITUDE: Yes other (Anxious.) JUDGEMENT: judgment good Urinary Catheter Management^: Michelle: Cath Placed During This Visit: yes, but has since been removed by the nurse Reason for Continuing Indwelling Catheter: Decision to DC Catheter Urinary Catheter Date of Insertion: 06/14/19 Urinary Catheter Time of Insertion: 21:46 Date Urinary Catheter Removed: 06/16/19 Time Urinary Catheter Discontinued: 07:52 Data : 06/18/19 01:20 06/18/19 01:20 A&P Assessment and plan (1) Biliary colic: This seems to wax and wane at this time. Will switch her to clear liquid diet and see how she tolerates things. I greatly appreciate Dr. Cortes assistance and evaluation of this problem. Status: Acute Code(s): K80.50 - Calculus of bile duct without cholangitis or cholecystitis without obstruction (2) Right upper quadrant abdominal pain: See above, no change. Status: Acute Code(s): R10.11 - Right upper quadrant pain (3) induced hypertension, antepartum: This is well controlled at this time. Status: Acute Code(s): O13.9 - Gestational [-induced] hypertension without significant proteinuria, unspecified trimester (4) uterine contractions in second trimester, antepartum: She has had some more contractions with magnesium at 1.5 g/h so will increase back to 2 g/h. She has been asymptomatic when her magnesium levels were mildly elevated and therefore I think we can tolerate a mild elevation of magnesium level if it controls contractions and she is asymptomatic. Status: Acute Code(s): O47.02 - False labor before 37 completed weeks of gestation, second trimester (5) Twin in second trimester: Infants have looked good on the monitor when were able to keep them on. heart tones have been reassuring. Status: Acute Code(s): O30.002 - Twin , unspecified number of placenta and unspecified number of amniotic sacs, second trimester (6) Edema during : This is a new problem with mild dyspnea. Will check venous Doppler to assure that we do not have deep vein thrombosis and encourage leg pumps for DVT prophylaxis. Status: Acute Code(s): O12.00 - Gestational edema, unspecified trimester Attestations Medical Necessity Statement*: This patient has multiple medical problems going on including labor with a twin . She also has significant biliary colic and other issues and therefore will require continued hospitalization at this time. I do not have a timetable as to potential discharge. Time Spent in Patient Care: 16 - 35 minutes Coding Level of Care Code Acute Loan Processing Supervisor for g Fwd Diagnoses Biliary colic K80.50 Right upper quadrant abdominal pain R10.11 induced hypertension, antepartum O13.9 uterine contractions in second trimester, antepartum O47.02 Twin in second trimester O30.002 Edema during O12.00
[2019-06-18] MEDS: HYDROcodone-acetaminophen 5-325 mg Tablet 1 TAB PO (09:58)
[2019-06-18] MEDS: NIFEdipine ER (24 hr) 30 mg Tablet 60 MG PO ×2 (09:58→19:11)
[2019-06-18] MEDS: pantoprazole DR 40 mg Tablet PO ×2 (09:59→19:11)
[2019-06-18] MEDS: docusate sodium 100 mg Capsule PO ×2 (09:59→19:11)
--- NOTE | 2019-06-18 10:10 | US_ITS ---
WS: [id number] BIOPHYSICAL PROFILE HISTORY: BIOPHYSICAL PROFILES ON BOTH BABIES COMPARISON: None available. Cervix measures 3.9 cm. With fundal pressure cervical length decreases to 3.3 mm. There is an abundan t amount of amniotic fluid. There are several large pockets of amniotic fluid measuring up to 10 cm. Parameters are as follows: Twin A. Cardiac activity 111 bpm. Breathin Movement: 2 Tone: 2 Fluid volume: 2 Twin B. Cardiac activity 138 bpm. Breathin Movement: 2 Tone: 2 Fluid volume: 2 1. Twin A and twin B: Biophysical profile scores: 8/8. 2. Closed cervix with no definite cervical insufficiency noted with fundal pressure. Cervix is shorte vitaliy. 3. Abundant in the fluid. Several pockets of amniotic fluid measuring up to 10 cm in depth. Fluid has increased since the study of 05/18/2019. US/US OB BPP wo NST twins IMPRESSION:
--- NOTE | 2019-06-18 11:07 | PC.NURSE ---
06/18/19 @ 0850 Magnesium titrated to 2g/hour per Dr Mejia. Witnessed by Xiomara Gastelum RN.
[2019-06-18] MEDS: labetalol 200 mg Tablet PO ×2 (12:04→19:48)
--- NOTE | 2019-06-18 14:17 | PC.NURSE ---
Dr. Mejia notified of the magnesium level, and that the magnesium level was drawn from the same arm as the IV is running, above the IV site. Orders received to redraw the magnesium from the other arm.
[2019-06-18 19:44] LABS: Magnesium Level (OB Only) 8.4 mg/dL (5.0-7.5)
[2019-06-18] MEDS: ondansetron 2 mg/ML SDV 2 mL 4 MG IVP (20:11)
--- NOTE | 2019-06-18 20:43 | PC.NURSE ---
Magnesium was decreased from 2 mg to 1.5 mg.
[2019-06-18] MEDS: diphenhydrAMINE 50 mg/mL SDV 1mL IVP (21:03)
--- NOTE | 2019-06-18 23:23 | PC.NURSE ---
Pt. up to bathroom prior to monitors being placed. Pts. O2 increases with movement and deep breathing. Monitor's in place. I remained in the pts. room to observe O2 level. Pt. begins t. snore and take shallow breaths while sleeping. O2 levels decrease with snoring. Pts. spouse indicates that pt. does have a Hx of snoring. Pts. lung sounds are clear. Dr. Mejia was informed of O2 levels today.
[2019-06-19] VITALS (132 sets, daily range): BP systolic 0–154; BP diastolic 0–84; PULSE 77–110; RESP 18; TEMP 36.4–36.8; O2SAT 79–97
[2019-06-19 01:12] LABS: Magnesium Level (OB Only) 7.9 mg/dL (5.0-7.5)
[2019-06-19] MEDS: dextrose 5%-lactated ringers 1,000 ML 87.5 ML IV (01:44)
[2019-06-19 04:05] LABS: Basophils % 0.3 %; Eosinophils % 0.4 %; Hematocrit 28.5 % (37.0-47.0); Lymphocytes # 1.5 10^3/uL (0.8-4.8); Lymphocytes % 13.8 %; Mean Corpuscular HGB Conc 31.6 g/dL (30.0-36.0); Mean Corpuscular Hemoglobin 28.1 pg (28.0-34.0); Mean Corpuscular Volume 89.1 fL (81-99); Mean Platelet Volume 12.9 fL (7.4-10.4); Monocytes # 0.7 10^3/uL (0.2-0.9); Monocytes % 6.6 %; Neutrophils # 8.7 10^3/uL (1.8-7.7); Neutrophils % 78.4 %; Nucleated Red Blood Cells % 0 %; Platelet Count 183 10^3/cmm (130-400); Red Cell Distribution Width 14.1 % (12.1-15.1); White Blood Count 11.1 10^3/uL (4.0-10.0)
[2019-06-19] MEDS: magnesium sulfate premix 20 GM/500 ML BAG IV (04:34)
--- NOTE | 2019-06-19 05:18 | PC.NURSE ---
Pt. instructed how to use Incentive Spirometer. Pt. instructed to do 10 reps of IS every 2-3 hrs. while awake.
[2019-06-19 07:23] LABS: Magnesium Level (OB Only) 8.6 mg/dL (5.0-7.5)
--- NOTE | 2019-06-19 08:04 | P.PN_ITS ---
Subjective Subjective: Interval history: Patient is feeling much better with abdominal pain completely gone. She did develop a flushing rash last night that seem to come and go. She was given Benadryl x1 and the rash has completely resolved. She denies any significant pruritus or other problems. She does continue to have occasional contractions which she does not feel. She did have an episode of nausea and vomiting last night, but that is resolved. At times with lying flat her oxygen saturation drops into the upper 80s. I suspect this is some apnea problems. However, the twins have done well on monitoring with reassuring heart tones. Vitals/I&O/Wt Last Vital Signs Temp 98.2 F 06/19/19 05:00 Pulse 97 06/19/19 07:47 Resp 18 06/19/19 05:00 BP 149/69 06/19/19 07:47 Pulse Ox 92 06/19/19 07:59 06/18/19 06/19/19 06/19/19 22:59 06:59 14:59 Intake Total 2123.333 / 3455.833 755.417 / 4211.250 133.333 / 133.333 Output Total 1450 / 1670 100 / 1770 300 / 300 Balance 673.333 / 1785.833 655.417 / 2441.250 -166.667 / -166.667 Physical Exam Const: COMMON NORMALS: no apparent distress and oriented x3 GENERAL APPEARANCE: cooperative and comfortable NUTRITIONAL APPEARANCE: obese Chest: COMMONS NORMALS: inspection of chest normal Resp: COMMON NORMALS: normal respiratory effort, no retractions, no use of accessory muscles and clear to auscultation bilaterally (Perhaps minimal crackles in the bases.) AUSCULTATION: clear to auscultation bilaterally (Perhaps minimal crackles in the bases.) Cardio: COMMON NORMALS: regular rate, regular rhythm and no murmurs RATE: regular rate RHYTHM: regular rhythm GI: COMMON NORMALS: soft to palpation and non-tender INSPECTION: Yes normal to inspection (Obviously .) PALPATION: Yes soft : COMMON NORMALS: Yes no CVA tenderness BLADDER/KIDNEY EXAM: Yes no CVA tenderness MANUAL OB EXAM: deferred UTERUS PALPATION: No uterus tender Back/Pelvis: COMMON NORMALS: no CVA tenderness Neuro: COMMON NORMALS: oriented x3 Psych: COMMON NORMALS: mental status grossly normal and affect normal Urinary Catheter Management^: Michelle: Cath Placed During This Visit: yes, but has since been removed by the nurse Reason for Continuing Indwelling Catheter: Decision to DC Catheter Urinary Catheter Date of Insertion: 06/14/19 Urinary Catheter Time of Insertion: 21:46 Date Urinary Catheter Removed: 06/16/19 Time Urinary Catheter Discontinued: 07:52 Data : 06/19/19 03:48 06/18/19 01:20 A&P Assessment and plan (1) Biliary colic: Presently, this appears to have resolved with clear liquid diet. We will cautiously add regular diet as tolerated. Status: Acute Code(s): K80.50 - Calculus of bile duct without cholangitis or cholecystitis without obstruction (2) Right upper quadrant abdominal pain: Presently no pain. Status: Acute Code(s): R10.11 - Right upper quadrant pain (3) induced hypertension, antepartum: Blood pressures are stable at this time. Status: Acute Code(s): O13.9 - Gestational [-induced] hypertension without significant proteinuria, unspecified trimester (4) uterine contractions in second trimester, antepartum: These are pretty well controlled at this time with present treatment. However, we have a decreased supply of magnesium and I feel that she is stable to try to wean off the magnesium at this time. Status: Acute Code(s): O47.02 - False labor before 37 completed weeks of gestation, second trimester (5) Twin in second trimester: If his appeared to be stable. Yesterday's biophysical profile was 8 out of 8 for both infants. Her cervical length was approximately 3-1/2 cm. Status: Acute Code(s): O30.002 - Twin , unspecified number of placenta and unspecified number of amniotic sacs, second trimester (6) Flushing reaction: Resolved. This is a common reaction to magnesium. Status: Acute Code(s): R23.2 - Flushing Attestations Medical Necessity Statement*: This patient has had several ongoing problems as stated above. She continues require inpatient hospitalization. However, if we can get the contractions to have less frequency or severity can possibly discharge either later today or tomorrow morning. She will require close outpatient follow-up. Coding Level of Care Code Acute Applications Sales Consultant for g Fwd Exam Detailed Diagnoses Biliary colic K80.50 Right upper quadrant abdominal pain R10.11 induced hypertension, antepartum O13.9 uterine contractions in second trimester, antepartum O47.02 Twin in second trimester O30.002 Flushing reaction R23.2
[2019-06-19] MEDS: pantoprazole DR 40 mg Tablet PO (09:06)
[2019-06-19] MEDS: NIFEdipine ER (24 hr) 30 mg Tablet 60 MG PO (09:06)
[2019-06-19] MEDS: docusate sodium 100 mg Capsule PO (09:06)
[2019-06-19] MEDS: labetalol 200 mg Tablet PO (09:07)
--- NOTE | 2019-06-19 09:15 | P.PN_ITS ---
Subjective Subjective: Interval history: The patient's abdominal pain is completely gone this morning. She has remained on a clear liquid diet but I believe her diet was advanced after breakfast this morning. Vitals/I&O/Wt Last Vital Signs Temp 98.2 F 06/19/19 05:00 Pulse 92 06/19/19 08:16 Resp 18 06/19/19 05:00 BP 0/0 06/19/19 08:46 Pulse Ox 91 06/19/19 08:29 06/18/19 06/19/19 06/19/19 22:59 06:59 14:59 Intake Total 2123.333 / 4211.250 755.417 / 4211.250 133.333 / 133.333 Output Total 1450 / 1770 100 / 1770 400 / 400 Balance 673.333 / 2441.250 655.417 / 2441.250 -266.667 / -266.667 Physical Exam Narrative: EXAM NARRATIVE: Right upper quadrant seems completely nontender on exam today. Urinary Catheter Management^: Michelle: Cath Placed During This Visit: yes, but has since been removed by the nurse Reason for Continuing Indwelling Catheter: Decision to DC Catheter Urinary Catheter Date of Insertion: 06/14/19 Urinary Catheter Time of Insertion: 21:46 Date Urinary Catheter Removed: 06/16/19 Time Urinary Catheter Discontinued: 07:52 Data : 06/19/19 03:48 06/18/19 01:20 A&P Assessment and plan (1) Biliary colic: White blood cell count has essentially normalized. The patient is completely pain-free. I do believe the patient has been having symptoms of biliary colic over the past 6 weeks. I explained to her that the goal at this point is to get her through her and then deal with her gallbladder if necessary following her delivery. We discussed a low-fat diet at home. I will be happy to follow-up with the patient in the future if needed. I anticipate the patient is going to be discharged in the next day or 2. Please call if I can be of further help. Status: Acute Code(s): K80.50 - Calculus of bile duct without cholangitis or cholecystitis without obstruction Attestations Medical Necessity Statement*: See admitting service's notation. Coding Level of Care Code Acute Management Expert for Yuni Gabriel Diagnoses Biliary colic K80.50
--- NOTE | 2019-06-19 16:43 | P.DS_ITS ---
Discharge Providers Date of Admission: 06/15/19 08:30 Date of Discharge: June 19, 2019 Attending Provider at Admission: Brenden Mejia MD Attending Provider at Discharge: Brenden Mejia MD Diagnoses at Discharge Discharge Diagnosis (1) Biliary colic: Status: Acute Problem details: This biliary colic has now resolved after a day of clear liquid diet. She is asymptomatic at this time and her abdominal pain is completely resolved. (2) Right upper quadrant abdominal pain: Status: Acute Problem details: Right upper quadrant abdominal pain is resolved. (3) induced hypertension, antepartum: Status: Acute Problem details: Blood pressure has been stable with medications. (4) uterine contractions in second trimester, antepartum: Status: Acute Problem details: This is mostly resolved and she has no pain with any contractions at this time. (5) Twin in second trimester: Status: Acute Problem details: She continues to be with twins and thus far everything is reassuring with a twin . (6) Flushing reaction: Status: Acute Problem details: This was a short-term problem and resolved quickly. Reason for Visit Reason for Visit: Reason For Visit: thick vaginal discharge Hospital Course Hospital Course: This patient was admitted on for the above reason. She has had contractions off and on. She developed significant abdominal pain and with examination and evaluation she was felt to have probably passed a gallstone. Dr. Le was consulted and they do appreciate his help. She has tolerated a regular diet today without problems or concerns. She has no significant pain. She has not felt any contractions over the past couple of days. Her blood pressure has remained a little borderline high but was greatly improved with medications. Benefits and risks of continued stay versus discharge were discussed with the patient and spouse. They feel comfortable going home to return if she becomes more symptomatic again. Discharge Summary: Patient is doing very well at this time. She continues to be completely nontender on abdominal examination. heart tones of the twins have been periodically evaluated and have remained reassuring. She is felt to be stable for discharge. Physical Exam Const: COMMON NORMALS: no apparent distress and healthy appearing GENERAL APPEARANCE: cooperative Resp: COMMON NORMALS: normal respiratory effort, no retractions, no use of accessory muscles and clear to auscultation bilaterally AUSCULTATION: clear to auscultation bilaterally Cardio: COMMON NORMALS: regular rate, regular rhythm and no murmurs RATE: regular rate RHYTHM: regular rhythm GI: COMMON NORMALS: soft to palpation, non-tender and no masses (She is .) PALPATION: Yes soft Extremity: COMMON NORMALS: normal to inspection (Trace edema at most this evening.) and full ROM Neuro: COMMON NORMALS: CN's II-XII intact bilaterally, no focal motor deficits and no sensory deficits noted Urinary Catheter Management^: Michelle: Cath Placed During This Visit: yes, but has since been removed by the nurse Reason for Continuing Indwelling Catheter: Decision to DC Catheter Urinary Catheter Date of Insertion: 06/14/19 Urinary Catheter Time of Insertion: 21:46 Date Urinary Catheter Removed: 06/16/19 Time Urinary Catheter Discontinued: 07:52 Discharge Data Data Completed and Pending: Completed Studies During Hospitalization Category Date Time Status MR MRCP 05599 Rou cuco MRI 06/17/19 11:54 [place] [id number] Urgent Ultrasound 06/18/19 08:41 Completed US OB biophysical profile without N ST tw [US OB Ultrasound 06/18/19 10:10 Completed BPP wo NST twins] Urgent US OB biophysical profile wo NST tw ins [US OB B PP Ultrasound 06/15/19 06:21 Completed wo NST twins] Sta t US gall bladder 7 [id number] Routine Ultrasound 06/17/19 06:40 Completed Labs from last 24 hours 06/19/19 06/19/19 06/19/19 06:53 03:48 00:43 WBC 11.1 H RBC 3.20 L Hgb 9.0 L Hct 28.5 L MCV 89.1 MCH 28.1 MCHC 31.6 RDW 14.1 Plt Count 183 MPV 12.9 H Neut % (Auto) 78.4 Lymph % (Auto) 13.8 Andrews % (Auto) 6.6 Eos % (Auto) 0.4 Baso % (Auto) 0.3 Neut # (Auto) 8.7 H Lymph # (Auto) 1.5 Andrews # (Auto) 0.7 Eos # (Auto) 0.0 Baso # (Auto) 0.0 Nucleated RBC % (a uto) 0 Nucleated RBCs # 0.0 Magnesium 8.6 H* 7.9 H* 06/18/19 18:55 WBC RBC Hgb Hct MCV MCH MCHC RDW Plt Count MPV Neut % (Auto) Lymph % (Auto) Andrews % (Auto) Eos % (Auto) Baso % (Auto) Neut # (Auto) Lymph # (Auto) Andrews # (Auto) Eos # (Auto) Baso # (Auto) Nucleated RBC % (a uto) Nucleated RBCs # Magnesium 8.4 H* Vitals: Last Vital Signs Temp 98.3 F 06/19/19 09:15 Pulse 98 06/19/19 16:12 Resp 18 06/19/19 05:00 BP 145/66 06/19/19 16:12 Pulse Ox 91 06/19/19 08:29 Discharge Plan Discharge Patient Disposition: Home, Self-Care Condition: Stable Prescriptions: New nifedipine 30 mg Tablet Extended Release 24hr 60 mg PO BID Qty: 60 RF: 2 pantoprazole 40 mg Tablet,Delayed Release (Dr/Ec) 40 mg PO BID Qty: 60 RF: 3 Continued PNV cmb#95-ferrous fumarate-FA [] 28 mg iron- 800 mcg Tablet 1 tab PO DAILY RF: 0 Discharge Orders: Discharge Order (Routine); Ordered 06/19/19 Ordered By: Brenden Mejia Discharge Diet: Low Fat Discharge Activity: Resume usual activity Activity Restrictions/Additional Instructions: No heavy physical activity. No greasy meals or spicy meals. Please make follow-up with this physician for sometime next week and as needed. Discharge Attestations Time Spent in Discharge Care*: greater than 30 min Quality Metrics Clinical Quality Measures During this hospital stay, did patient experience: None Coding Level of Care Code Acute Merchandising Manager for g Fwd Exam Detailed Diagnoses Biliary colic K80.50 Right upper quadrant abdominal pain R10.11 induced hypertension, antepartum O13.9 uterine contractions in second trimester, antepartum O47.02 Twin in second trimester O30.002 Flushing reaction R23.2
--- NOTE | 2019-06-19 16:48 | PC.NURSE ---
Pt sitting up in chair coloring. Denies any wants, needs or pain at this time
--- NOTE | 2019-06-19 18:06 | PC.NURSE ---
Sitting up in chair eating dinner
== END 2019-06-19 17:35 | disposition home or self-care (01) | DRG 832 ==
LOC: OBGYN 09:34 → OPOB 09:34
PROVIDERS: Surgery; Admitting Provider Family Medicine; Family Provider Family Medicine; Visit Provider Family Medicine
DX: O13.2 Gestational [pregnancy-induced] hypertension without significant proteinuria, second trimester (principal); O47.02 False labor before 37 completed weeks of gestation, second trimester; O26.612 Liver and biliary tract disorders in pregnancy, second trimester; K80.50 Calculus of bile duct without cholangitis or cholecystitis without obstruction; R23.2 Flushing; Z3A.25 25 weeks gestation of pregnancy
CPT/HCPCS: 12345; 36415; 51702; 59025; 74181; 76705; 76819; 80048; 80053; 80076; 81001; 82150; 83690; 83735; 85025; 93970; 96372; 96374; 96375; 99211; J0702; J1200; J2405; J3010; J3475

== ENCOUNTER 2019-07-14 18:13 | Outpatient (CLI) | payer MEDICAID, SELFPAY ==
[2019-07-14 18:33] VITALS: BMI 35.6
[2019-07-14] MEDS: dextrose 5%-lactated ringers 1,000 ML 125 ML IV (18:45)
[2019-07-14] MEDS: magnesium sulfate premix 4 GM/100 ML PREMIX IV (18:45)
[2019-07-14] MEDS: betamethasone susp 6 mg/mL 5 mL 12 MG IM (18:56)
[2019-07-14] MEDS: magnesium sulfate premix 20 GM/500 ML BAG IV (18:59)
--- NOTE | 2019-07-14 19:07 | PM.SDS ---
Short Stay Summary Providers Date of Admit/Discharge: 07/14/19 Attending Provider: Brenden Mejia MD Primary Care Provider: Brenden Mejia MD Chief Complaint: vag discharge HPI History of Present Illness Calli Morales is a 19 year old female who is a 1 para 0 with twins with an EDC of September 26, 2019. She has been doing well with care. She had a normal biophysical profile with both infants on 06/18/2019. At that time there was a normal cervical length and normal amount of amniotic fluid. At around 1400 on the day of admission she got out of the vehicle and felt a gush of fluid. At that time she felt that she had probably peed on herself . At that time she then went fishing and during the 3-hours she was fishing she kept leaking fluid. Her stepmother intervened and told her that she may be leaking fluid and she needed to go to OB. Upon arrival to OB she was grossly ruptured and fingertip to 1 cm dilated. She is having occasional contractions but is not uncomfortable or feeling them. She has received betamethasone 12 mg IM x1. She is started on magnesium per protocol. Her blood type is O+ with antibody screen negative. Hepatitis B, hepatitis C, RPR negative. Rubella was immune and group B strep was not done. Review of Systems Narrative: As described above. Presently she is a little anxious but otherwise not feeling any significant pain or problems. Const: Denies: fever, chills or diaphoresis Card: Reports: swelling of feet/ankles (Mild.); Denies: chest pain or palpitations Resp: Denies: shortness of breath, productive cough, non-productive cough or wheezing GI: Denies: abdominal pain, nausea, vomiting, diarrhea or constipation : Reports: vaginal discharge (Clear. Grossly nitrazine positive.); Denies: pelvic pain Musc: Denies: neck pain or joint pain Neuro: Denies: headache, changes in sensation or difficulty communicating thoughts Psych: Reports: anxiety Home Meds/Allergies Home Medications and Allergies Home Medications Medication Instructions Recorded Confirmed Type PNV cmb#95-ferrous fumarate-FA 1 tab PO DAILY 06/08/19 06/15/19 History [] Allergies Allergy/AdvReac Type Severity Reaction Status Date / Time Penicillins Allergy ALGY-Hives Verified 06/08/19 00:15 PFSH Acute PFSH: Medical History (Updated 07/14/19 @ 19:32 by Brenden Mejia MD) Biliary colic This biliary colic has now resolved after a day of clear liquid diet. She is asymptomatic at this time and her abdominal pain is completely resolved. No significant past medical history Surgical History (Updated 06/17/19 @ 12:16 by Hunter Le MD) No significant past surgical history Female Reproductive History: Date of last menstrual period: 07/23/18 Physical Exam Narrative: EXAM NARRATIVE: She is lying supine in bed and is in no distress. Const: COMMON NORMALS: no apparent distress GENERAL APPEARANCE: cooperative, comfortable and well kempt NUTRITIONAL APPEARANCE: overweight Lymph: LYMPHATIC: no lymphadenopathy noted Chest: COMMONS NORMALS: inspection of chest normal Resp: COMMON NORMALS: normal respiratory effort, no retractions, no use of accessory muscles and clear to auscultation bilaterally AUSCULTATION: clear to auscultation bilaterally Cardio: COMMON NORMALS: regular rate, regular rhythm and no murmurs RATE: regular rate RHYTHM: regular rhythm OTHER: 1+ lower extremity pitting edema. Negative calf tenderness and negative Homans. GI: COMMON NORMALS: non-tender : OB/EXTERNAL & SPECULUM: external exam normal MANUAL OB EXAM: dilated fingertip and effaced 50% Extremity: COMMON NORMALS: normal to inspection, full ROM and normal capillary refill Psych: COMMON NORMALS: speech normal APPEARANCE: Yes well kempt ACTIVITY/MOTOR BEHAVIOR: Yes appropriate eye contact SPEECH: Yes normal speech MOOD & AFFECT: Yes anxious Hospital Course Admission Diagnoses: Premature rupture of membranes with twin . Hospital Course: Patient was evaluated and found to have rupture membranes at 29 weeks gestation with twin . As she was not at this time in active labor decision was made to seek transfer to another facility. Dr. Guillermo at [facility] in [place] was called and he agreed to accept the patient in transfer. Arrangements are being made at this time. Discharge Summary: The course has been described as above. EMS has been called and will be coming to mixing picker tender this patient to transport to [facility] in [facility]. They are aware that she is coming. SSS Data Data Completed and Pending: Pending at discharge Category Date Time Status Magnesium Level ( OB Only) Q6H Lab 07/15/19 00:30 Ordered Nitrazine Paper, PH Routine Lab 07/14/19 18:29 Received Diagnoses at Discharge Discharge Diagnosis (1) Twin : Status: Acute Problem details: Patient has had some biliary colic during this but that has improved with bland diet. Otherwise, she has had no significant problems during this course prior to spontaneous rupture of membranes at home. (2) Premature rupture of membranes: Status: Acute Problem details: Patient has a twin with obvious rupture of membranes. Presently she is having occasional contractions which she does not feel and her cervical exam remains fingertip to 1 cm. She has had 1 dose of IM betamethasone and is presently on magnesium for labor. Discharge Plan Discharge Patient Disposition: Home, Self-Care Prescriptions: No Action nifedipine 30 mg Tablet Extended Release 24hr 60 mg PO BID Qty: 60 RF: 2 pantoprazole 40 mg Tablet,Delayed Release (Dr/Ec) 40 mg PO BID Qty: 60 RF: 3 PNV cmb#95-ferrous fumarate-FA [] 28 mg iron- 800 mcg Tablet 1 tab PO DAILY RF: 0 Attestations Medical Necessity Statement*: This patient has a 29 weeks gestation with twins and has had spontaneous rupture of membranes at home. She needed to be admitted to the hospital for stabilization and transfer for higher level of care for the 29-week neonates after delivery. Time Spent in Patient Care*: greater than 30 min Specific Discharge Activities: Specific discharge activities: educating patient, educating and/or supporting family/caregiver, discussing with rn case manager hospice/social workers/dc planners, documenting/other paperwork and evaluating patient/reviewing data Other discharge activites (optional): Discussed this case with Dr. Guillermo in [place] who has accepted the patient in transfer. Status at Discharge: Cognitive status at discharge: cognitively intact, Behavioral status at discharge: cooperative, Quality Metrics Clinical Quality Measures: During this hospital stay, did patient experience: None Coding Level of Care Code Acute Staff Mechanical Engineer for Chg Fwd Exam Comprehensive Diagnoses Twin O30.009 Premature rupture of membranes O42.90
[2019-07-14] MEDS: clindamycin 300 MG/50 ML PREMIX 100 MG IV (19:10)
[2019-07-14 19:24] VITALS: BP 163/72; PULSE 97; RESP 16; TEMP 36.9; O2SAT 98
[2019-07-14 19:40] LABS: Nitrazine Paper, PH Positive
--- NOTE | 2019-07-14 19:41 | PC.NURSE ---
Report called to Charge Nurse Luly RN at [facility] Labor and Delivery this time. RN reports that patient will go to [facility] 12 upon arrival.
[2019-07-14] MEDS: azithromycin 500 MG in sodium chloride 0.9% 250 ML 250 MG IV (19:44)
--- NOTE | 2019-07-14 20:08 | PC.NURSE ---
EMS and Dr. Mejia at bedside.
[2019-07-14 20:15] VITALS: BP 154/94; PULSE 100; RESP 17; TEMP 37; O2SAT 100
--- NOTE | 2019-07-14 20:15 | PC.NURSE ---
Report given to EMS at this time.
--- NOTE | 2019-07-14 20:24 | PC.NURSE ---
Patient left unit with EMS at this time in stable condition.
[2019-07-14 20:38] VITALS: BP 154/94; PULSE 100; RESP 17; TEMP 37; O2SAT 100
== END 2019-07-14 20:24 | disposition other institution (70) ==
LOC: OPOB 18:14 → OBGYN 19:37
PROVIDERS: Family Provider Family Medicine; Visit Provider Family Medicine
DX: O30.009 Twin pregnancy, unspecified number of placenta and unspecified number of amniotic sacs, unspecified trimester (principal); O42.90 Premature rupture of membranes, unspecified as to length of time between rupture and onset of labor, unspecified weeks of gestation; Z3A.29 29 weeks gestation of pregnancy
CPT/HCPCS: 51702; 59025; 83986; 96372; 99211; J0456; J0702; J3475; J3490; J7050

== ENCOUNTER 2019-07-21 19:17 | Emergency (ER) | payer MEDICAID, SELFPAY ==
[2019-07-21 19:18] VITALS: BP 149/96; PULSE 123; RESP 16; TEMP 36.9; O2SAT 100; BMI 30.7
--- NOTE | 2019-07-21 19:30 | XR_ITS ---
WS: [id number] PORTABLE CHEST HISTORY: cough COMPARISON: None available. Lungs are clear and well expanded. No pleural effusion or pneumothorax. Cardiac size: Normal. Mediastinum/Aorta: Normal mediastinum. No osseous abnormality seen. XR/XR chest 1V portable [id number] IMPRESSION: Unremarkable portable chest.
--- NOTE | 2019-07-21 19:30 | US_ITS ---
WS: [id number] Complete ABDOMINAL ULTRASOUND HISTORY: Abdominal Pain COMPARISON: None available. Liver: 13.1 cm in length. Normal size liver. Mild central bile duct dilatation. Gallbladder: Hydropic gallbladder. Transverse diameter 4.6 cm. Small amount of stones and sludge in t he lumen. Gallbladder wall thickness: 0.2 cm. Pancreas: Partially obscured. CBD: 1.4 cm. Right kidney: 12.6 cm x 4.9 cm x 4.6 cm. No mass, cortical thickening or hydronephrosis. Left kidney: 10.9 cm x 5.8 cm x 5.2 cm. No mass, cortical thickening or hydronephrosis. Spleen: Normal size and echogenicity. Abdominal aorta and IVC are within normal limits. No ascites. US/US abdomen complete* [id number] IMPRESSION: 1. Gallbladder hydrops with stones and sludge. 2. Intra and extrahepatic bile duct dilatation. Favor stone in the distal comm on bile duct. Similar findings with progression since 06/17/2019.
[2019-07-21 19:49] VITALS: RESP 18
[2019-07-21] MEDS: sodium chloride 0.9% 1,000 ML 1000 ML IV (19:49)
[2019-07-21] MEDS: ondansetron 2 mg/ML SDV 2 mL 4 MG IVP (19:49)
[2019-07-21] MEDS: HYDROmorphone 1 mg/mL INJ 1 mL 0.5 MG IVP ×2 (19:49→21:45)
[2019-07-21 19:50] LABS: Basophils % 0.2 %; Eosinophils # 0.2 10^3/uL (0.0-0.8); Eosinophils % 1.4 %; Hematocrit 27.9 % (37.0-47.0); Hemoglobin 8.4 g/dL (11.5-15.3); Lymphocytes # 1.7 10^3/uL (0.8-4.8); Lymphocytes % 13.8 %; Mean Corpuscular HGB Conc 30.1 g/dL (30.0-36.0); Mean Corpuscular Hemoglobin 27.5 pg (28.0-34.0); Mean Corpuscular Volume 91.2 fL (81-99); Mean Platelet Volume 11.4 fL (7.4-10.4); Monocytes # 0.9 10^3/uL (0.2-0.9); Monocytes % 7.4 %; Neutrophils # 9.3 10^3/uL (1.8-7.7); Neutrophils % 76.5 %; Nucleated Red Blood Cells % 0 %; Platelet Count 289 10^3/cmm (130-400); Red Blood Count 3.06 10^6/uL (4.1-5.3); Red Cell Distribution Width 15.2 % (12.1-15.1); White Blood Count 12.2 10^3/uL (4.0-10.0)
[2019-07-21 20:17] LABS: Alanine Aminotransferase 81 U/L (0-33); Albumin Level 3.2 g/dL (3.5-5.2); Alkaline Phosphatase 722 IU/L (35-105); Aspartate Amino Transferase 86 U/L (0-32); Blood Urea Nitrogen 15 mg/dL (6-20); Calcium 9.6 mg/dL (8.5-10.5); Carbon Dioxide 24 mmol/L (22-29); Chloride 98 mmol/L (98-107); Glomerular Filtration Rate 126.2 mL/min (90-130); Glucose 120 mg/dL (65-115); Lipase 37 U/L (13-60); Magnesium 1.9 mg/dL (1.7-2.3); Osmolality Calculated 277 mOsm/kg (285-295); Sodium 135 mmol/L (136-145); Total Protein 7.2 g/dL (6.6-8.7)
[2019-07-21 20:19] LABS: Lactic Sepsis W/Reflex 1.1 mmol/L (0.5-2.2)
--- NOTE | 2019-07-21 21:10 | ED_ITS ---
HPI - Abdominal Pain General: Chief Complaint: Abdominal Pain Stated Complaint: post op Time Seen by Provider: 07/21/19 19:25 History of Present Illness: HPI narrative: Calli is a nice 19-year-old female who comes in complaining of severe right upper quadrant pain. She states that the pain is been intermittent for the past 2 weeks but progressively getting worse. She has associated nausea but has not vomited. The patient recently, 4 days ago had a section to deliver a child but she did have 2 episodes while in the hospital but nothing was done. Patient states that she knows she has gallbladder disease but because she was they chose not to do anything about it at that time. She not aware of any fever or chills. She does not have any diarrhea. She states her site looks well she has not had any lower abdominal pain. Associated Symptoms: Reports nausea; Denies chills, coffee ground emesis, constipation, GI cramping, diarrhea, d ysuria, fever(s), hematochezia, hematuria, hematemesis, melena, syncope and vomiting Related Data: Date of Last Menstrual Period: 07/23/18 Review of Systems General: Reports: other (negative unless marked) Const: Denies: fever, chills, body aches, fatigue, malaise or diaphoresis Eyes: Denies: change in vision or blurry vision ENMT: Denies: throat pain, painful swallowing, hoarseness, ear pain, ear discharge, Change in hearing or nasal discharge Card: Denies: chest pain, palpitations, irregular heart rhythm, syncope, pre- syncope, shortness of breath on exertion or shortness of breath when lying down Resp: Denies: shortness of breath, productive cough, non-productive cough, wheezing, coughing up blood or chest congestion GI: Reports: abdominal pain and nausea; Denies: vomiting, vomiting blood, coffee grounds in vomit, diarrhea, constipation, cramping, blood in stool or black tarry stool : Denies: flank pain, painful urination, urinary frequency, urinary urgency, decreased urine ouput, urinary incontinence or blood in urine Musc: Denies: neck pain, back pain, extremity pain, extremity swelling, joint pain, joint swelling, joint warmth or joint stiffness Skin/Breast: Denies: rash, skin tenderness or yellow skin Neuro: Denies: headache, numbness in extremities, weakness in extremities, changes in sensation, lack of coordination, difficulty walking, dizziness, vertigo or confusion Endo: Denies: excessive thirst, tired all the time, cold intolerance, excessive sweating, flushing or hot flashes Carlos/Lymph: Denies: easy bruising, easy bleeding, petechiae or enlarged lymph nodes All/Imm: Denies: hives, throat swelling, tongue swelling, facial swelling or acute wheezing PFSH ED PFSH: Medical History Biliary colic This biliary colic has now resolved after a day of clear liquid diet. She is asymptomatic at this time and her abdominal pain is completely resolved. No significant past medical history Surgical History No significant past surgical history Social History Smoking and tobacco status: never smoked Female Reproductive History: Date of last menstrual period: 07/23/18 Physical Exam Const: COMMON NORMALS: no apparent distress, oriented x3, no limitations, healthy appearing and well nourished EXAM LIMITATIONS: no altered mental status GENERAL APPEARANCE: cooperative, well kempt and well developed ORIENTATION/CONSCIOUSNESS: Yes awake HENMT: COMMON NORMALS: normocephalic, head/scalp atraumatic, hearing grossly normal bilaterally, external ears normal, EAC's normal, external nose normal and moist oral mucous membranes HEAD & SCALP: normal to inspection, normocephalic and atraumatic FACE & SINUS: normal facial exam and face symmetric NOSE: external nose normal and nares normal EXTERNAL EAR: Yes external ears normal EXTERNAL AUDITORY CANAL: EAC's normal MOUTH: oral and palatal mucosa normal and tongue normal Eye: COMMON NORMALS: PERRL, EOMs intact bilaterally, conjunctivae normal and no scleral icterus GENERAL EYE: normal appearance of both eyes and normal light reflex CONJUNCTIVA: Yes conjunctivae normal SCLERA: sclerae normal CORNEA: Yes corneas normal PUPIL: Yes PERRL DIRECT OPHTHALMOSCOPY: Yes normal light reflex Neck/C-Spine: COMMON NORMALS: full ROM, no lymphadenopathy, supple, no meningeal signs and no JVD GENERAL: Yes normal visual inspection and Yes trachea midline CERVICAL SPINE: Yes cervical ROM normal Chest: COMMONS NORMALS: inspection of chest normal and palpation of chest normal Resp: COMMON NORMALS: normal respiratory effort, no retractions, no use of accessory muscles and clear to auscultation bilaterally EFFORT & INSPECTION: Yes able to speak in complete sentences AUSCULTATION: clear to auscultation bilaterally Cardio: COMMON NORMALS: no JVD, regular rate, regular rhythm, S1 normal heart sound, S2 normal heart sound, no gallops, no clicks, no murmurs and no rub JUGULAR VENOUS DISTENTION: no JVD RATE: regular rate RHYTHM: regular rhythm HEART SOUNDS: S1 normal and S2 normal GI: COMMON NORMALS: soft to palpation, no hepatosplenomegaly and no masses PALPATION: Yes soft, Yes tender Details: RUQ (Moderate to severe), No guarding, No rigid, Yes no hepatosplenomegaly and Yes other ( incision appears well with no erythema or drainage.) : COMMON NORMALS: Yes no CVA tenderness BLADDER/KIDNEY EXAM: Yes no CVA tenderness Back/Pelvis: COMMON NORMALS: no CVA tenderness, thoracic and lumbar spine normal to inspection, no thoracic nor lumbar tenderness and thoraco-lumbar ROM normal Extremity: COMMON NORMALS: normal to inspection, full ROM, normal capillary refill, no joint enlargement, no clubbing, cyanosis or edema (Trace pretibial edema) and no calf tenderness Neuro: COMMON NORMALS: oriented x3, CN's II-XII intact bilaterally, moves all extremities, no focal motor deficits and no sensory deficits noted MENINGEAL SIGNS: Yes no meningeal signs Psych: COMMON NORMALS: mental status grossly normal, thought process normal, cooperative, affect normal, speech normal and activity/motor behavior normal APPEARANCE: Yes well kempt SPEECH: Yes normal speech THOUGHT PROCESS: normal thought process Skin: COMMON NORMALS: no rashes or lesions noted, skin turgor normal, no ja undice, no petechiae and no mottling GENERAL SKIN EXAM: no rashes or lesions noted and turgor normal Course Vital Signs: Vital signs: Vital Signs Temperature 98.4 F 07/21/19 19:18 Pulse Rate 101 H 07/22/19 00:23 Respiratory Rate 19 H 07/22/19 00:23 Blood Pressure 167/112 07/22/19 00:23 Pulse Oximetry 100 07/22/19 00:23 MDM - Abdominal Pain MDM Narrative: Medical decision making narrative: The case had been discussed with Dr. Busby who felt the patient would need an MRCP to delineate whether this obstruction was from a recently passed stone or if the stone was still present. The MRCP does show or indicates there is likely a distal common bile duct stone. The patient would like to be transferred back to [facility] where she delivered her baby. The patient's blood pressure has been mildly elevated and I have tried to treat this with pain medicine as she is still having significant pain. She has trace if any pretibial edema and no protein in her urine. When questioned she states that she does not remember being diagnosed with preeclampsia but she did have magnesium while she was in delivery. [facility] and they are aware of all of this. Dr. Ricardo has accepted the patient and he is going to review the chart to look over her preeclampsia type issues from when she delivered. Lab Data: Attestation: I reviewed the patient's lab results. Labs: Lab Results 07/21/19 07/21/19 07/21/19 Range/Units 19:40 19:40 19:40 WBC 12.2 H (4.0-10.0) 10^3/ uL RBC 3.06 L (4.1-5.3) 10^6/u L Hgb 8.4 L (11.5-15.3) g/dL Hct 27.9 L (37.0-47.0) % MCV 91.2 (81-99) fL MCH 27.5 L (28.0-34.0) pg MCHC 30.1 (30.0-36.0) g/dL RDW 15.2 H (12.1-15.1) % Plt Count 289 (130-400) 10^3/c mm MPV 11.4 H (7.4-10.4) fL Neut % (Auto) 76.5 % Lymph % (Auto) 13.8 % Titus % (Auto) 7.4 % Eos % (Auto) 1.4 % Baso % (Auto) 0.2 % Neut # (Auto) 9.3 H (1.8-7.7) 10^3/u L Lymph # (Auto) 1.7 (0.8-4.8) 10^3/u L Titus # (Auto) 0.9 (0.2-0.9) 10^3/u L Eos # (Auto) 0.2 (0.0-0.8) 10^3/u L Baso # (Auto) 0.0 (0.0-0.1) 10^3/u L Nucleated RBC % (a uto) 0 % Nucleated RBCs # 0.0 /100WBC Sodium 135 L (136-145) mmol/L Potassium 5.0 (3.5-5.1) mmol/L Chloride 98 (98-107) mmol/L Carbon Dioxide 24 (22-29) mmol/L Anion Gap 18.0 (5-19) BUN 15 (6-20) mg/dL Creatinine 0.6 (0.5-0.9) mg/dL GFR Calculation 126.2 (90-130) mL/min Glucose 120 H (65-115) mg/dL Calculated Osmolal ity 277 L (285-295) mOsm/k g Lactic Acid 1.1 (0.5-2.2) mmol/L Calcium 9.6 (8.5-10.5) mg/dL Magnesium 1.9 (1.7-2.3) mg/dL Total Bilirubin 1.0 (0.15-1.2) mg/dL AST 86 H (0-32) U/L ALT 81 H (0-33) U/L Alkaline Phosphata se 722 H (35-105) IU/L Total Protein 7.2 (6.6-8.7) g/dL Albumin 3.2 L (3.5-5.2) g/dL Globulin 4.0 (1.3-4.6) g/dL Lipase 37 (13-60) U/L Urine Color (Yellow) Urine Appearance (CLEAR) Urine pH (5-7) Ur Specific Gravit y (1.005-1.030) Urine Protein (Negative) Urine Glucose (UA) (Normal) Urine Ketones (Negative) Urine Blood (Negative) Urine Nitrate (Negative) Urine Bilirubin (NEGATIVE) Urine Urobilinogen (Negative) mg/dL Ur Leukocyte Chasity ase (Negative) Urine RBC (0-2) /hpf Urine WBC (0-5) /hpf Ur Squamous Epith Cells (0-5) Urine Bacteria (NONE) //20 Range/Units 23:01 WBC (4.0-10.0) 10^3/ uL RBC (4.1-5.3) 10^6/u L Hgb (11.5-15.3) g/dL Hct (37.0-47.0) % MCV (81-99) fL MCH (28.0-34.0) pg MCHC (30.0-36.0) g/dL RDW (12.1-15.1) % Plt Count (130-400) 10^3/c mm MPV (7.4-10.4) fL Neut % (Auto) % Lymph % (Auto) % Titus % (Auto) % Eos % (Auto) % Baso % (Auto) % Neut # (Auto) (1.8-7.7) 10^3/u L Lymph # (Auto) (0.8-4.8) 10^3/u L Titus # (Auto) (0.2-0.9) 10^3/u L Eos # (Auto) (0.0-0.8) 10^3/u L Baso # (Auto) (0.0-0.1) 10^3/u L Nucleated RBC % (a uto) % Nucleated RBCs # /100WBC Sodium (136-145) mmol/L Potassium (3.5-5.1) mmol/L Chloride (98-107) mmol/L Carbon Dioxide (22-29) mmol/L Anion Gap (5-19) BUN (6-20) mg/dL Creatinine (0.5-0.9) mg/dL GFR Calculation (90-130) mL/min Glucose (65-115) mg/dL Calculated Osmolal ity (285-295) mOsm/k g Lactic Acid (0.5-2.2) mmol/L Calcium (8.5-10.5) mg/dL Magnesium (1.7-2.3) mg/dL Total Bilirubin (0.15-1.2) mg/dL AST (0-32) U/L ALT (0-33) U/L Alkaline Phosphata se (35-105) IU/L Total Protein (6.6-8.7) g/dL Albumin (3.5-5.2) g/dL Globulin (1.3-4.6) g/dL Lipase (13-60) U/L Urine Color Yellow (Yellow) Urine Appearance Cloudy (CLEAR) Urine pH 7 (5-7) Ur Specific Gravit y 1.010 (1.005-1.030) Urine Protein Neg (Negative) Urine Glucose (UA) Norm (Normal) Urine Ketones Negative (Negative) Urine Blood 3+ H (Negative) Urine Nitrate Negative (Negative) Urine Bilirubin Neg (NEGATIVE) Urine Urobilinogen 1 H (Negative) mg/dL Ur Leukocyte Chasity ase Negative (Negative) Urine RBC 0-4 H (0-2) /hpf Urine WBC 10-15 H (0-5) /hpf Ur Squamous Epith Cells 25-40 H (0-5) Urine Bacteria 1+ H (NONE) Imaging Data ^: US: My impression: Ultrasound abdomen, tech interpretation -dilated intra-and extrahepatic bile ducts. Enlarged gallbladder at 13 cm. Common bile duct enlarged at 1.3 cm. Stones and sludge present within the gallbladder but no definitive gallbladder wall thickening. MRCP: Radiologist's impression: [place] [address] Magnetic Resonance Report Signed Patient: Calli Morales Unit #: [id number] : 2000 Age/Sex: 19 / F ADM Date: 07/21/19 Loc: ER Room/Bed: Attending Dr: Ordering Provider/Ordering MD: Rubia Alonso DO Date of Service: 07/21/19 Procedure(s): MR MRCP [id number] Accession Number(s): [id number] Report Number: [id number] PROCEDURE INFORMATION: Exam: MR Abdomen Without Contrast Exam date and time: 07/21/2019 11:25 PM Age: 19 years old Clinical indication: Abdominal pain; Epigastric; Prior surgery; Surgery date: 3-7 days post-operative; Surgery type: ; Patient HX: PT complains of ruq pain x several months. She is 4 days post csection and having worse pain. ; Additional info: Ruq pain/abnormal US TECHNIQUE: Imaging protocol: MR of the abdomen without contrast. COMPARISON: MR MRCP [id number] 06/17/2019 1:15 PM FINDINGS: Liver: There is no focal abnormality within the liver. Gallbladder and bile ducts: There is several small gallstones within the gallbladder there is moderate hydrops of the gallbladder which measures 13 cm in length and over 4 cm in diameter. There is no gallbladder wall thickening or pericholecystic fluid. There is increased dilatation of the common bile duct compared with previous examination which measures up to 11 mm. There is also intrahepatic biliary tract dilatation. On T2 axial image number 7 of series 4 there is suggestion of small filling defect within the distal common bile duct which is worrisome for common duct stone. This finding however is not reproduced on any of the other sequences. Pancreas: Unremarkable. No ductal dilation. Spleen: The spleen is normal. Adrenals: Unremarkable. No mass. Kidneys and ureters: The kidneys are normal. Stomach and bowel: Visualized stomach and intestines are unremarkable. Intraperitoneal space: No free fluid. Arteries: No abdominal aortic aneurysm. Bones/joints: Unremarkable. Soft tissues: Unremarkable. MR/MR MRCP [id number] IMPRESSION: 1. Hydrops of the gallbladder. 2. Biliary tract dilatation. 3. Cholelithiasis. 4. Findings are suspicious for stone in the distal common bile duct. Further evaluation such as with ERCP is suggested. 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
--- NOTE | 2019-07-21 21:40 | MRR_ITS ---
PROCEDURE INFORMATION: Exam: MR Abdomen Without Contrast Exam date and time: 07/21/2019 11:25 PM Age: 19 years old Clinical indication: Abdominal pain; Epigastric; Prior surgery; Surgery date: 3-7 days post-operative; Surgery type: ; Patient HX: PT complains of ruq pain x several months. She is 4 days post csection and having worse pain. ; Additional info: Ruq pain/abnormal US TECHNIQUE: Imaging protocol: MR of the abdomen without contrast. COMPARISON: MR MRCP [id number] 06/17/2019 1:15 PM FINDINGS: Liver: There is no focal abnormality within the liver. Gallbladder and bile ducts: There is several small gallstones within the gallbladder there is moderate hydrops of the gallbladder which measures 13 cm in length and over 4 cm in diameter. There is no gallbladder wall thickening or pericholecystic fluid. There is increased dilatation of the common bile duct compared with previous examination which measures up to 11 mm. There is also intrahepatic biliary tract dilatation. On T2 axial image number 7 of series 4 there is suggestion of small filling defect within the distal common bile duct which is worrisome for common duct stone. This finding however is not reproduced on any of the other sequences. Pancreas: Unremarkable. No ductal dilation. Spleen: The spleen is normal. Adrenals: Unremarkable. No mass. Kidneys and ureters: The kidneys are normal. Stomach and bowel: Visualized stomach and intestines are unremarkable. Intraperitoneal space: No free fluid. Arteries: No abdominal aortic aneurysm. Bones/joints: Unremarkable. Soft tissues: Unremarkable. MR/MR MRCP [id number] IMPRESSION: 1. Hydrops of the gallbladder. 2. Biliary tract dilatation. 3. Cholelithiasis. 4. Findings are suspicious for stone in the distal common bile duct. Further evaluation such as with ERCP is suggested.
[2019-07-21 21:45] VITALS: RESP 19
[2019-07-21 21:48] VITALS: BP 150/97; PULSE 99; RESP 20; O2SAT 99
[2019-07-21 22:53] VITALS: RESP 18
[2019-07-21] MEDS: morphine 4 mg/mL SDV 1 mL IVP (22:53)
[2019-07-21 23:27] LABS: Bacteria Urine 1+; Bilirubin Urine Neg (NEGATIVE); Blood Urine 3+ (Negative); Glucose Urine UA Norm (Normal); Ketones Urine Negative (Negative); Leukocyte Esterase Urine Negative (Negative); Nitrate Urine Negative (Negative); Protein Urine Neg (Negative); RBC Urine 0-4 /hpf (0-2); Squamous Epithelial Cell Urine 25-40 (0-5); Urine Appearance Cloudy (CLEAR); Urine Color Yellow (Yellow); Urobilinogen Urine 1 mg/dL (Negative); pH Urine 7 (5-7)
[2019-07-22 00:20] VITALS: RESP 19
[2019-07-22] MEDS: HYDROmorphone 1 mg/mL INJ 1 mL IVP ×2 (00:20→03:32)
[2019-07-22 00:23] VITALS: BP 167/112; PULSE 101; RESP 19; O2SAT 100
--- NOTE | 2019-07-22 00:23 | PC.NURSE ---
Pt. MRI via EMS with this writer editor in attendance. Tolerated transfer and procedure well. Pt. to be transfered to [facility] 2/ stone in common bile duct. Verbalizes understanding of plan of care.
[2019-07-22] MEDS: magnesium sulfate premix 2 GM/50 ML PIGGYBACK IV (02:51)
[2019-07-22] MEDS: labetalol 5 mg/mL SDV 20mL 10 MG IVP (02:51)
[2019-07-22] MEDS: cefTRIAXone 1,000 MG in sodium chloride 0.9% (plus) 50 ML 100 MG IV (02:52)
== END 2019-07-22 02:53 | disposition short-term general hospital (02) ==
PROVIDERS: Emergency Provider Emergency Medicine; Family Provider Family Medicine; PCP Family Medicine
DX: K80.80 Other cholelithiasis without obstruction (principal)
CPT/HCPCS: 12345; 36415; 71045; 74181; 76700; 80053; 81001; 83605; 83690; 83735; 85025; 96360; 96361; 96365; 96367; 96374; 96375; 96376; 99283; 99285; J0696; J1170; J2270; J2405; J3475; J3490; J7030

== ENCOUNTER 2020-04-02 04:16 | Outpatient (CLI) | payer BC, MEDICAID, SELFPAY ==
[2020-04-02 04:26] VITALS: TEMP 36.1
[2020-04-02 04:27] VITALS: BP 125/73; PULSE 97
== END 2020-04-02 05:08 | disposition home or self-care (01) ==
LOC: OPOB 04:18 → OBGYN 04:57
PROVIDERS: PCP Family Medicine; Visit Provider Family Medicine
DX: O36.8190 Decreased fetal movements, unspecified trimester, not applicable or unspecified (principal); Z3A.00 Weeks of gestation of pregnancy not specified
CPT/HCPCS: 99211

== ENCOUNTER 2020-05-28 15:22 | Outpatient (CLI) | payer BC, MEDICAID, SELFPAY ==
[2020-05-28] VITALS (12 sets, daily range): BP systolic 118–133; BP diastolic 57–72; PULSE 88–105; RESP 16–18; TEMP 36.9; BMI 34.8
[2020-05-28 15:50] LABS: Add Urine Microscopic? NO
[2020-05-28 15:56] LABS: Bilirubin Urine Neg (Negative); Blood Urine Neg (Negative); Glucose Urine UA Norm (Normal); Ketones Urine 1+ (Negative); Leukocyte Esterase Urine Negative (Negative); Nitrate Urine Negative (Negative); Protein Urine Neg (Negative); Specific Gravity, Urine 1.015 (1.005-1.030); Urine Appearance Clear (CLEAR); Urine Color Straw (Yellow); Urobilinogen Urine Norm (Negative); pH Urine 7 (5-7)
[2020-05-28] MEDS: sodium chloride 0.9% 1,000 ML 999 ML IV ×2 (17:22→18:31)
--- NOTE | 2020-05-28 18:33 | P.HP_ITS ---
Providers/Chief Complaint Primary Care Provider: Brenden Mejia MD Chief Complaint: Contractions History of Present Illness Calli Morales is a 20 year old female Who is a 2, para 2 female at 35 weeks and 6 days gestation. She began having contractions at home this afternoon and try to wait to see if they would go away. She stated that they became stronger and closer together so she came to [facility] for evaluation. Since arrival, she has been having contractions every 3 to 6 minutes she rates them moderate in severity. Her cervix is closed and high and thick but in spite of oral hydration and then IV hydration she continues to contract. She has no other major risk factors through this . However she did deliver by section a set of 29-week twins in June of last year after spontaneous rupture of membranes. They were delivered in [place], [place]. Maternal blood type was O+ with antibody screen negative. The rest of the lab work was negative. She is scheduled for repeat section in about 2-1/2 weeks. The has looked great on the monitor with great accelerations and variability. Review of Systems Const: Denies: fever(s), chills, change in appetite or fatigue ENMT: Denies: throat pain, oral sores, dental pain, dry mouth or epistaxis Card: Denies: chest pain, palpitations, irregular heart rhythm or edema Resp: Denies: dyspnea, productive cough or non-productive cough GI: Reports: abdominal pain (Some low abdominal pain and contractions. She did have some mild nausea ea) and nausea; Denies: heartburn or constipation : Reports: amenorrhea (She is approximately 35 weeks and 6 days.); Denies: flank pain, difficulty voiding or vaginal bleeding Musc: Denies: back pain, extremity pain, joint pain, joint redness or limited range of motion Neuro: Denies: headache(s), weakness in extremities, difficulty walking or confusion Psych: Denies: anxiety or depression Endo: Denies: hot flashes Carlos/Lymph: Denies: easy bruising All/Imm: Denies: seasonal rhinorrhea Medications/Allergies Home Medications Medication Instructions Recorded Confirmed Last Taken Type No Known Home Medications 05/28/20 05/28/20 Unknown History Allergies Allergy/AdvReac Type Severity Reaction Status Date / Time Penicillins Allergy ALGY-Hives Verified 07/21/19 19:26 PFSH Acute PFSH: Medical History (Updated 05/28/20 @ 18:41 by Brenden Mejia MD) Biliary colic This biliary colic has now resolved after a day of clear liquid diet. She is asymptomatic at this time and her abdominal pain is completely resolved. No significant past medical history Surgical History (Updated 05/28/20 @ 18:41 by Brenden Mejia MD) No significant past surgical history Social History Smoking and tobacco status: never smoked Female Reproductive History: Date of last menstrual period: 07/23/18 : 2 Vitals/I&O/Wt Last Vital Signs Temp 98.4 F 05/28/20 15:36 Pulse 90 05/28/20 18:27 Resp 18 05/28/20 18:02 BP 126/58 05/28/20 18:27 05/28/20 05/28/20 05/28/20 06:59 14:59 22:59 Intake Total 1000 / 1000 Balance 1000 / 1000 Weight last 48 hrs Weight 92.079 kg Physical Exam Const: COMMON NORMALS: no acute distress, average body habitus and healthy appearing GENERAL APPEARANCE: cooperative, comfortable and well kempt HENMT: COMMON NORMALS: moist oral mucous membranes Neck/C-Spine: COMMON NORMALS: full ROM and no lymphadenopathy Resp: COMMON NORMALS: normal respiratory effort, No retractions, No use of accessory muscles and clear to auscultation bilaterally Cardio: COMMON NORMALS: no JVD, regular rate, regular rhythm and No murmurs present (Cardio) GI: COMMON NORMALS: Soft to palpation and non-tender; negative for Normal to inspection, nondistended, normoactive bowel sounds present (She has a uterus approximately 36 cm in fundal height.) PALPATION: Yes Soft to palpation and No Tenderness to palpation present (GI) : COMMON NORMALS: Yes no CVA tenderness MANUAL OB EXAM: Not dilated nor effaced and station high Back/Pelvis: COMMON NORMALS: no CVA tenderness Extremity: COMMON NORMALS: normal to inspection, full ROM and no pedal edema Neuro: COMMON NORMALS: patient oriented x3, CN's II-XII intact bilaterally, moves all extremities, no focal motor deficits and no sensory deficits noted Psych: COMMON NORMALS: mental status grossly normal, cooperative and normal affect Skin: COMMON NORMALS: no rashes or lesions noted and no wounds A&P Assessment and plan (1) uterine contractions: Presently, it does not appear that she is in labor as she is kin without cervical change. We have been giving her intravenous hydration as oral hydration failed. We will continue that for another liter. She has a family member who lives in town but she may stay with if she is still kin some but not making cervical change so that she can return more quickly. Therefore, after this second bag of intravenous fluid if she has not made any cervical change she and is not kin more than she is she will probably be allowed to be discharged to this family member's house to follow-up with worsening contractions or increased discomfort or ruptured membranes. The patient resides in [place] so I feeling comfortable allowing her to go home tonight with her kin. However, if she can stay in town we may be able to allow her to go to her [id number]'s house for the night. Status: Acute (2) Previous section complicating : I have notified Dr. Doll of the patient's presence and he will be available if needed if she begins making cervical change. Status: Acute Attestations Medical Necessity Statement*: This patient has a previous section and is kin. She needs at least an observation stay for evaluation and if she begins making cervical change this will need to be changed to a full admission. Presently, I expect this to be a less than 2 midnight hospital stay. Time Spent in Patient Care: 16 - 35 minutes Coding Level of Care Code Acute Mechanic Welder for [facility] Fwd Exam Comprehensive Diagnoses uterine contractions O47.9 Previous section complicating O34.219
== END 2020-05-28 20:18 | disposition home or self-care (01) ==
LOC: OPOB 15:23 → OBGYN 15:24
PROVIDERS: PCP Family Medicine; Visit Provider Family Medicine
DX: O47.9 False labor, unspecified (principal); O34.219 Maternal care for unspecified type scar from previous cesarean delivery; Z3A.35 35 weeks gestation of pregnancy
CPT/HCPCS: 12345; 59025; 81003; 96360; 96361; 99211; J7030

== ENCOUNTER 2020-06-02 17:55 | Outpatient (CLI) | payer BC, MEDICAID, SELFPAY ==
[2020-06-02 18:00] VITALS: BMI 35.0
[2020-06-02 18:08] VITALS: BP 132/66; PULSE 100
[2020-06-02 18:41] VITALS: BP 133/66; PULSE 95
[2020-06-02 19:13] VITALS: BP 126/62; PULSE 101
== END 2020-06-02 19:20 | disposition home or self-care (01) ==
LOC: OPOB 17:57 → OBGYN 17:57
PROVIDERS: PCP Family Medicine; Visit Provider Family Medicine
DX: O26.899 Other specified pregnancy related conditions, unspecified trimester (principal); Z3A.00 Weeks of gestation of pregnancy not specified; R10.9 Unspecified abdominal pain
CPT/HCPCS: 59025; 99211

== ENCOUNTER 2020-06-21 04:56 | Inpatient (IN) | payer BC, MEDICAID, SELFPAY ==
--- NOTE | 2020-06-06 10:38 | P.ANESASSM_ITS ---
Pre-Anesthetic Assessment Pre-Anesthetic Assessment: Height/Weight: Height 1.63 m Proposed Procedure: Operation Date: 06/21/20 07:00 Proposed Procedures p Section Repeat Z98.891(Not Applicable) - Jean Doll MD Was Beta Fadi taken within 24 hours: N/A Was Clonidine taken within 24 hours: N/A Social: Social History: No alcohol and No tobacco Exam: Pre-Anes Outpt Exam: alert, oriented x 3, clear to auscultation bilaterally and regular rate & rhythm Airway: Submandibular: WNL Cervical ROM: WNL MP: 2 Dentition: Full Anesthetic Plan: ASA status: 2 Anesthesia: Regional (specify below) (SAB) Other: Repeat C/S (GETA epidural failure last time) Risk of > 500 ml blood lo ss (7ml/kg in children): Yes, adequate IV access and fluids planned PFSH Anesthesia PFSH: Medical History (Updated 05/28/20 @ 18:41 by Brenden Mejia MD) Biliary colic This biliary colic has now resolved after a day of clear liquid diet. She is asymptomatic at this time and her abdominal pain is completely resolved. No significant past medical history Surgical History (Updated 05/28/20 @ 18:41 by Brenden Mejia MD) No significant past surgical history Social History Smoking and tobacco status: never smoked Female Reproductive History: Date of last menstrual period: 07/23/18 Data Anesthesia Cardiac Studies: No Data to Display
[2020-06-21] VITALS (27 sets, daily range): BP systolic 96–137; BP diastolic 37–69; PULSE 63–96; RESP 16–20; TEMP 36.2–36.6; O2SAT 95–100
[2020-06-21 05:46] LABS: Basophils # 0.1 10^3/uL (0.0-0.1); Basophils % 0.5 %; Eosinophils # 0.1 10^3/uL (0.0-0.8); Eosinophils % 0.7 %; Hematocrit 37.8 % (37.0-47.0); Hemoglobin 11.5 g/dL (11.5-15.3); Lymphocytes # 2.1 10^3/uL (0.8-4.8); Mean Corpuscular HGB Conc 30.4 g/dL (30.0-36.0); Mean Corpuscular Hemoglobin 28.2 pg (28.0-34.0); Mean Corpuscular Volume 92.6 fL (81-99); Mean Platelet Volume 12.2 fL (7.4-10.4); Monocytes # 0.7 10^3/uL (0.2-0.9); Neutrophils % 74.4 %; Nucleated Red Blood Cells % 0 %; Platelet Count 197 10^3/cmm (130-400); Red Blood Count 4.08 10^6/uL (4.1-5.3); Red Cell Distribution Width 15.7 % (12.1-15.1); White Blood Count 11.4 10^3/uL (4.0-10.0)
--- NOTE | 2020-06-21 06:45 | PM.OBGYHP ---
Providers/Chief Complaint Admitting Physician: Jean Doll MD Primary Care Provider: Brenden Mejia MD Chief Complaint: repeat c section HPI NURSES' REGISTRY DIRECTOR History of Present Illness Calli Morales is a 20 year old 2 para 2 female 39 weeks estimated gestational age who is presenting for a repeat section. Her previous section was due to twin gestation. Her has been relatively unremarkable. She did have contractions about 3 weeks ago. Her labs been relatively unremarkable. Her blood type is O+. Her GBS status is negative. Her glucose screen was 134. Her drug screen was negative. Remainder of her blood work was within normal limits. Present Details : 2 Para: 1 Date of Last Menstrual Period: 07/23/18 Calculated Date of Delivery: 04/29/19 Gestational Age Based on Last Menstrual Period: 99 Labs Rubella: Immune RPR: Negative GBS: Negative Review of Systems General: Reports: 10 or more systems reviewed and unremarkable except in HPI and below Const: Reports: fatigue; Denies: fever(s) Eyes: Denies: change in vision Card: Denies: chest pain Musc: Reports: back pain Carlos/Lymph: Denies: easy bruising Medications/Allergies Home Medications Medication Instructions Recorded Confirmed Last Taken Type No Known Home Medications 05/28/20 05/28/20 Unknown History Allergies Allergy/AdvReac Type Severity Reaction Status Date / Time Penicillins Allergy ALGY-Hives Verified 07/21/19 19:26 PFSH NURSES' REGISTRY DIRECTOR PFSH: Medical History (Updated 06/21/20 @ 06:56 by Jean Doll MD) Biliary colic This biliary colic has now resolved after a day of clear liquid diet. She is asymptomatic at this time and her abdominal pain is completely resolved. No significant past medical history Surgical History No significant past surgical history Social History Smoking and tobacco status: never smoked Vitals/I&O/Wt Last Vital Signs Temp 97.2 F L 06/21/20 05:25 Pulse 80 06/21/20 06:42 Resp 16 06/21/20 05:11 BP 106/54 06/21/20 06:42 Physical Exam Const: COMMON NORMALS: patient oriented x3 and alert HENMT: COMMON NORMALS: moist oral mucous membranes HEAD & SCALP: normal to inspection Chest: COMMONS NORMALS: normal inspection of the chest Resp: COMMON NORMALS: clear to auscultation bilaterally AUSCULTATION: clear to auscultation bilaterally Cardio: COMMON NORMALS: regular rate and regular rhythm RATE: regular rate RHYTHM: regular rhythm GI: COMMON NORMALS: Normal to inspection, nondistended, normoactive bowel sounds present (Incision noted below the pannus.) INSPECTION: Yes normal to inspection and Yes other (Gravid) Extremity: COMMON NORMALS: normal to inspection GENERAL: Yes edema (Trace) Neuro: COMMON NORMALS: patient oriented x3, moves all extremities and no sensory deficits noted SENSORIUM/ORIENTATION: Yes alert Psych: COMMON NORMALS: mental status grossly normal Skin: COMMON NORMALS: no rashes or lesions noted GENERAL SKIN EXAM: no rashes or lesions noted Data : 06/21/20 05:30 A&P Assessment and plan (1) Previous section complicating : I discussed the risks of bleeding, infection, and damage intra-abdominal organs with the patient and her partner. They have no further questions and wished to proceed. Status: Acute (2) 39 weeks gestation of : Status: Acute Attestations Medical Necessity Statement*: Anticipate routine and post care Coding Level of Care Code Acute Press Department Manager for Chg Fwd Diagnoses Previous section complicating O34.219 39 weeks gestation of Z3A.39
[2020-06-21] MEDS: metoclopramide 5 mg/mL SDV 2 mL 10 MG IVP (06:53)
[2020-06-21] MEDS: famotidine 20 mg/2 mL INJ IVP (06:53)
[2020-06-21] MEDS: lactated ringers 1,000 ML 999 ML IV (06:54)
[2020-06-21] MEDS: citric acid-sodium citrate 30 mL UDC PO (06:54)
--- NOTE | 2020-06-21 08:16 | P.OP_ITS ---
Operative Report Date of procedure: June 21, 2020 Pre-op Diagnosis: History of , 39 weeks EGA Post-op diagnosis: same Procedure Done: Lower transverse section Specimens removed/disposition: 1. 39-week female infant with a weight of 7 pounds 0 ounces and Apgars of 8 and 8 2. Placenta with a three-vessel cord delivered intact Pathology: none sent Surgeon: Jean Doll Stamping Die Maker: Brenden Mejia Anesthesia: Other (Spinal) Estimated blood loss (mL): 400 Complications: None Condition: stable Brief History: Refer to history and physical Procedure: The patient was brought back to the operating room where she was prepped and draped in usual sterile fashion. Anesthesia was found to be adequate. A lower transverse skin incision was then made with a #10 blade. I then dissected down to the underlying subcutaneous tissue until arriving at the prerectal fascia. The fascia was then nicked with the scalpel bilaterally. The fascial incisions were then carried laterally with Boyer scissors. Attention was then turned to the superior aspect of the incision which was grasped with kochers and tented up away from the underlying rectus abdominis muscles. The muscles were then dissected away from the fascia manually, and later with Boyer scissors. Attention was then turned to the inferior aspect of the incision, and the fascia was dissected away from the underlying muscle in similar fashion. The rectus abdominis muscles were then spread manually. The peritoneum was ent ered manually. Excellent visualization of the uterus was noted. A lower transverse uterine incision was then made with a #10 blade. Upon arriving at the intrauterine cavity, the uterine incision was then extended manually. The was noted to be in vertex position. The baby was delivered without difficulty. After delivery of the head, the mouth and nose were suctioned at the site of the incision. There was no meconium. There was no nuchal cord. The remainder of the body was then delivered and placed on the abdomen. The cord was cut and clamped. The baby was then handed to the waiting nurse. The placenta was removed intact. The uterus was externalized. The intrauterine cavity was cleansed of any remaining debris. The uterine incision was reapproximated in 2 layers. The first layer was performed with 0 Vicryl in a running locked stitch. The second layer was an imbricating stitch also using 0 Vicryl. The uterus was replaced into the abdomen. The peritoneum was then irrigated with warm saline. I reexamined the uterine incision and found it to be hemostatic. The rectus abdominis muscles were then reapproximated using 0 Vicryl in a running stitch. The fascia was then reapproximated using 0 Vicryl in running stitch. The subcutaneous tissue was reapproximated using 0 Vicryl in a running stitch. The skin was reapproximated using 4-0 Vicryl in a running subcuticular stitch. Steri's were placed.. A sterile dressing was placed. All counts were correct x2. Both the mother and baby were in stable condition. Associated Problem List Diagnoses (1) 39 weeks gestation of : (2) Previous section complicating :
[2020-06-21] MEDS: ondansetron 2 mg/ML SDV 2 mL 4 MG IVP (09:32)
[2020-06-21] MEDS: ketorolac 30 mg/mL INJ IVP ×2 (09:36→15:06)
[2020-06-21] MEDS: dextrose 5%-lactated ringers 1,000 ML 125 ML IV ×2 (10:10→17:59)
[2020-06-21] MEDS: promethazine 25 mg/mL SDV 1 mL IM (10:31)
[2020-06-21] MEDS: docusate sodium 100 mg Capsule PO (17:14)
--- NOTE | 2020-06-21 19:12 | ANE.PACU2 ---
Inpatient post-anesthesia follow up: Airway intact: Yes Vital signs: Temperature 97.8 F Pulse Rate 70 Respiratory Rate 18 Blood Pressure 114/59 Pulse Oximetry 99 Oxygen Delivery Me thod Room Air Oxygen Flow Rate Fraction of Inspir ed Oxygen Hydration adequate: Yes Nausea and vomiting: No Pain level: 2 Mental status: Baseline
--- NOTE | 2020-06-21 21:26 | PC.NURSE ---
2049 KETORALAC NOT GIVEN DUE TO NO IV ACCESS. IS AWARE OF NO IV ACCESS. PO MOTRIN WILL BE GIVEN.
[2020-06-21] MEDS: ibuprofen 800 mg tablet PO (22:17)
[2020-06-21] MEDS: diphenhydrAMINE 25 mg Capsule PO (22:18)
[2020-06-21 23:30] LABS: Hematocrit 32.2 % (37.0-47.0); Mean Corpuscular HGB Conc 31.1 g/dL (30.0-36.0); Mean Corpuscular Hemoglobin 27.9 pg (28.0-34.0); Mean Corpuscular Volume 89.9 fL (81-99); Mean Platelet Volume 11.6 fL (7.4-10.4); Platelet Count 157 10^3/cmm (130-400); Red Blood Count 3.58 10^6/uL (4.1-5.3); Red Cell Distribution Width 15.6 % (12.1-15.1); White Blood Count 12.1 10^3/uL (4.0-10.0)
[2020-06-22] MEDS: HYDROcodone-acetaminophen 5-325 mg Tablet PO ×3 (02:34→13:33)
--- NOTE | 2020-06-22 07:27 | P.DS_ITS ---
Discharge Providers UI APPLICATION DEVELOPER Date of Admission: 06/21/20 04:56 Date of Discharge: 06/22/20 Attending Provider at Admission: Jean Doll MD Attending Provider at Discharge: Jean Doll MD Primary Care Provider: Brenden Mejia MD Diagnoses at Discharge Discharge Diagnosis (1) 39 weeks gestation of : Status: Acute (2) Previous section complicating : Status: Acute Reason for Visit Reason for Visit: repeat c section Hospital Course Hospital Course The patient presented to the hospital for a repeat section. The surgery itself was unremarkable. Her course was also unremarkable. Her urine output was appropriate. She is breast-feeding well. Her bleeding has been minimal. Her pain is been well controlled. She did have some issues with nausea and vomiting shortly after surgery. That resolved with appropriate intervention. Since that time she has had no further issues with nausea or vomiting. At this point she has not passed flatus yet. As long she does pass flatus, and tolerates a regular diet, she will build to be discharged home later today. Information Peripartum Data: Infant Delivery Method: Physical Exam Narrative: EXAM NARRATIVE: She is in no acute distress Lungs are clear auscultation bilaterally Her heart has a regular rate and rhythm Her fundus is below the umbilicus and firm Her dressing is clean, dry and intact Her extremities have trace edema Discharge Data Data Completed and Pending: Labs from last 24 hours 06/21/20 23:25 WBC 12.1 H RBC 3.58 L Hgb 10.0 L Hct 32.2 L MCV 89.9 MCH 27.9 L MCHC 31.1 RDW 15.6 H Plt Count 157 MPV 11.6 H Vitals: Last Vital Signs Temp 97.8 F 06/21/20 23:01 Pulse 75 06/21/20 23:01 Resp 18 06/21/20 23:01 BP 104/60 06/21/20 23:01 Pulse Ox 99 06/21/20 23:01 Discharge Plan Discharge Patient Disposition: Home Condition: Stable Prescriptions: New ibuprofen 800 mg Tablet 800 mg PO TID Qty: 45 RF: 0 hydrocodone-acetaminophen 5-325 mg Tablet 1 - 2 tab PO Q4H PRN (Reason: Moderate To Severe Pain) Qty: 20 RF: 0 -U 106.5-1 mg Capsule 1 cap PO BREAKFAST Qty: 90 RF: 2 No Action No Known Home Medications RF: 0 Discharge Orders: Discharge Order (Routine); Ordered 06/22/20 Ordered By: Jean Doll Referrals: Jean Doll MD [Physician] - 1 week (Please set up appointment with Dr. Mejia in 6 weeks for a routine check) Discharge Diet: Regular Discharge Activity: Limit activity as instructed Discharge Attestations UI APPLICATION DEVELOPER Time Spent in Discharge Care*: less than 30 min Status at Discharge: Cognitive status at discharge: cognitively intact , Behavioral status at discharge: cooperative , Coding Level of Care Code Acute Modeling Agency Manager for Chg Fwd Diagnoses 39 weeks gestation of Z3A.39 Previous section complicating O34.219
[2020-06-22] MEDS: prenatal vitamin Capsule 1 CAP PO (07:56)
[2020-06-22] MEDS: ibuprofen 800 mg tablet PO ×2 (09:15→14:36)
[2020-06-22] MEDS: docusate sodium 100 mg Capsule PO (09:15)
[2020-06-22 09:21] VITALS: BP 119/74; PULSE 84; RESP 17; TEMP 36.8
--- NOTE | 2020-06-22 12:02 | PC.NURSE ---
pt states she has now passed gas several times
[2020-06-22 14:36] VITALS: BP 115/72; PULSE 82; RESP 18; TEMP 36.7; O2SAT 98
[2020-06-22 14:40] VITALS: BP 115/72; PULSE 82; RESP 18; TEMP 36.7; O2SAT 98
== END 2020-06-22 14:40 | disposition home or self-care (01) | DRG 788 ==
PROVIDERS: Admitting Provider Family Medicine; PCP Family Medicine; Visit Provider Family Medicine
PROC: 10D00Z1 Extraction of Products of Conception, Low, Open Approach (ICD-10-PCS; CPT 59514; principal; 2020-06-21 07:00)
DX: O34.219 Maternal care for unspecified type scar from previous cesarean delivery (principal); Z3A.39 39 weeks gestation of pregnancy; Z37.0 Single live birth
CPT/HCPCS: 12345; 36415; 51702; 59025; 59409; 85025; 85027; 96372; 98960; J0690; J1885; J2250; J2274; J2370; J2405; J2550; J2765; J3490

== ENCOUNTER 2020-07-07 19:35 | Emergency (ER) | payer BC, MEDICAID, SELFPAY ==
[2020-07-07 19:43] VITALS: BP 118/72; PULSE 98; RESP 18; TEMP 36.7; O2SAT 98; BMI 31.7
[2020-07-07 20:00] VITALS: BP 120/74; PULSE 84; RESP 16; O2SAT 97
--- NOTE | 2020-07-07 20:00 | W.ED.SKABFB ---
HPI - Skin/Abscess/Foreign Bdy General: Chief complaint: Skin/Abscess/Foreign Body Stated complaint: SURGERY SITE PROBLEM Time Seen by Provider: 07/07/20 19:50 Source: patient Mode of arrival: ambulatory Limitations: no limitations History of Present Illness: HPI narrative: 20-year-old female patient presents to the emergency department with problem with her incision. completed June 21, [address] Doll, she reports 2 to 3 days ago, noticed separation to a portion of the incision, states bleeding and drainage occurred tonight. She denies pain, she reports sensitivity, denies fever chills or abdominal pain. Tetanus up to date: yes Relieving factors: none Exacerbating factors: none Context: none Associated symptoms: Reports no associated symptoms; Deny chills, fever(s), nausea or vomiting Treatments prior to arrival: none Review of Systems General: Reports: 10 or more systems reviewed and unremarkable except in HPI and below Const: Denies: fever(s), chills or diaphoresis Eyes: Denies: blurry vision or eye redness ENMT: Denies: throat pain, dental pain or disequilibrium Card: Denies: chest pain, palpitations or irregular heart rhythm Resp: Denies: dyspnea, productive cough, non-productive cough or wheezing GI: Denies: abdominal pain, nausea or vomiting : Denies: difficulty voiding or dysuria Musc: Denies: back pain Skin/Breast: Reports: skin tenderness; Denies: rash, pruritus, non-healing lesions, jaundice or surgical incision Neuro: Denies: headache(s), weakness in extremities or behavioral changes Carlos/Lymph: Denies: easy bruising [facility] PFSH: Medical History (Updated 07/07/20 @ 20:06 by MITCH Escobar) Biliary colic This biliary colic has now resolved after a day of clear liquid diet. She is asymptomatic at this time and her abdominal pain is completely resolved. No significant past medical history Surgical History No significant past surgical history Social History Smoking and tobacco status: never smoked Female Reproductive History: Date of last menstrual period: 07/23/18 Physical Exam Const: COMMON NORMALS: no acute distress, patient oriented x3, healthy appearing and alert GENERAL APPEARANCE: cooperative, comfortable and well hydrated HENMT: COMMON NORMALS: normocephalic, Normal external nose present and moist oral mucous membranes HEAD & SCALP: normocephalic NOSE: Normal external nose present Eye: COMMON NORMALS: Equal, round and reactive pupils present and EOMs intact bilaterally GENERAL EYE: appearance normal, both eyes and all related structures PUPIL: Yes Equal, round and reactive pupils present Neck/C-Spine: COMMON NORMALS: full ROM, no lymphadenopathy and no meningeal signs GENERAL: Yes normal visual inspection and Yes trachea midline CERVICAL SPINE: Yes cervical ROM normal Lymph: LYMPHATIC: no lymphadenopathy noted Chest: COMMONS NORMALS: normal inspection of the chest Resp: COMMON NORMALS: normal respiratory effort and clear to auscultation bilaterally AUSCULTATION: clear to auscultation bilaterally Cardio: COMMON NORMALS: regular rhythm, S1 normal heart sound present and S2 normal heart sound present RHYTHM: regular rhythm HEART SOUNDS: S1 normal heart sound present and S2 normal heart sound present GI: COMMON NORMALS: Normal to inspection, nondistended, normoactive bowel sounds present, Soft to palpation and non-tender INSPECTION: Yes normal to inspection, No abdominal wall ecchymosis, No abdominal distension, Yes central obesity, Yes striae and No visible herniation AUSCULTATION: Yes normoactive bowel sounds PALPATION: Yes Soft to palpation : COMMON NORMALS: Yes no CVA tenderness BLADDER/KIDNEY EXAM: Yes no CVA tenderness Back/Pelvis: COMMON NORMALS: no CVA tenderness and thoracic and lumbar spine normal to inspection Extremity: COMMON NORMALS: normal to inspection, full ROM, capillary refill normal and no pedal edema GENERAL: Yes normal exam except as noted Neuro: COMMON NORMALS: patient oriented x3 and no focal motor deficits SENSORIUM/ORIENTATION: Yes alert MENINGEAL SIGNS: Yes no meningeal signs GAIT: Yes Normal gait present Psych: COMMON NORMALS: mental status grossly normal, Normal thought process present and cooperative ACTIVITY/MOTOR BEHAVIOR: Yes appropriate eye contact THOUGHT PROCESS: Normal thought process present Skin: COMMON NORMALS: no rashes or lesions noted, no wounds, turgor normal, no petechiae and no mottling GENERAL SKIN EXAM: no rashes or lesions noted, elasticity normal and turgor normal WOUNDS: Yes surgical site (Superficial opening of site, no s/s infection) Details: size (1 cm on the right of the horizontal incision with slight separation, superficial), drainage (none), no odor and surrounding erythema (NONE) Course ED course: 20-year-old female patient presents to the emergency department with concern of her incision. She reports drainage from the right side of her incision with slight opening. Slight wound dehiscence was appreciated without drainage upon exam, no erythema foul odor or other concerning symptoms for infection noted. Patient was provided reassurance, advised to place clean dressing if drainage occurs, she was referred to follow-up with Dr. Doll next week for reevaluation or to return to the emergency department for worsening symptoms. Vital Signs: Vital signs: Vital Signs Temperature 98.1 F 07/07/20 19:43 Pulse Rate 84 07/07/20 20:00 Respiratory Rate 16 07/07/20 20:00 Blood Pressure 120/74 07/07/20 20:00 Pulse Oximetry 97 07/07/20 20:00 Discharge Plan Discharge Patient Disposition: Home Clinical Impression: Wound dehiscence, surgical Qualifiers: Encounter type: initial encounter Qualified Code(s): T81.31XA - Disruption of external operation (surgical) wound, not elsewhere classified, initial encounter Condition: Stable Prescriptions: No Action ibuprofen 800 mg Tablet 800 mg PO TID Qty: 45 RF: 0 hydrocodone-acetaminophen 5-325 mg Tablet 1 - 2 tab PO Q4H PRN (Reason: Moderate To Severe Pain) Qty: 20 RF: 0 -U 106.5-1 mg Capsule 1 cap PO BREAKFAST Qty: 90 RF: 2 No Known Home Medications RF: 0 Discharge Orders: Discharge ED (Routine); Ordered 07/07/20 Ordered By: Ashanti Watkins Referrals: Brenden Mejia MD [Primary Care Provider] - Discharge Diet: Usual diet Discharge Activity: Resume usual activity Patient Instructions: Wound Dehiscence (ED), Absorbable Suture Care (ED), Opioid Safety Activity Restrictions/Additional Instructions: Wash area daily with soap and water, pat dry Follow-up with Dr. Doll next week Return to the emergency department if you develop bleeding or opening of the incision/worsening symptoms Continue with , restrictions/after surgical care as instructed Coding Level of Care Code ED Vp Customer Service for Chg Fwd Exam Comprehensive
== END 2020-07-07 20:22 | disposition home or self-care (01) ==
PROVIDERS: Emergency Provider Nurse Practitioner Family; PCP Family Medicine
DX: O90.0 Disruption of cesarean delivery wound (principal)
CPT/HCPCS: 99281

== ENCOUNTER 2021-01-23 20:42 | Emergency (ER) | payer BC, MEDICAID, SELFPAY ==
[2021-01-23 20:58] VITALS: BP 145/87; PULSE 105; RESP 16; TEMP 36.8; O2SAT 99; BMI 32.5
[2021-01-23 21:37] LABS: Urine Appearance Hazy (CLEAR); Urine Color Yellow (Yellow); pH Urine 6 (5-7)
[2021-01-23 21:38] LABS: Add Urine Microscopic? YES; Bilirubin Urine Neg (Negative); Blood Urine 3+ (Negative); Glucose Urine UA Norm (Normal); Ketones Urine Negative (Negative); Leukocyte Esterase Urine Negative (Negative); Nitrate Urine Negative (Negative); Protein Urine Neg (Negative); Urobilinogen Urine 1 mg/dL (Negative)
[2021-01-23 21:40] LABS: Add Urine Culture? No; Bacteria Urine 1+ /hpf; RBC Urine RARE /hpf (0-2); WBC Urine 0-4 /hpf (0-5)
--- NOTE | 2021-01-24 00:08 | ED_ITS ---
HPI - Abdominal Pain General: Chief Complaint: Abdominal Pain Stated Complaint: abd pain Time Seen by Provider: 01/23/21 21:18 Source: patient Mode of arrival: ambulatory Limitations: no limitations History of Present Illness: HPI narrative: Patient is a 20-year-old female who presents to ED today with a complaint of right-sided abdominal pain over the past 2 days. She states pain has progressively worsened since onset. She states her pain seems to be worse with certain movements and bumps in the road. Pain is unaffected by eating. She is status post cholecystectomy. She has no complaints of nausea or vomiting. Bowel habits have been normal. She has no urinary symptoms. Denies vaginal bleeding or vaginal discharge. No previous history of ovarian cysts. No fevers, chills, body aches. Pertinent past history: none Onset (ago): day(s) Pain Consistency: constant Location: RUQ and RLQ Severity: moderate Radiation: none Migration to: no migration Exacerbating factors: movement Relieving factors: nothing Associated Symptoms: Denies change in bowel habits, change in stool character, chills, diarrhea, dysuria, fever(s), nausea and vomiting Related Data: Date of Last Menstrual Period: 07/23/18 Patient : No Review of Systems Const: Denies: fever(s), chills, body aches, fatigue or malaise Card: Denies: chest pain Resp: Denies: dyspnea GI: Reports: abdominal pain; Denies: nausea, vomiting, diarrhea, change in bowel habits or change in stool character : Denies: flank pain, difficulty voiding, dysuria, urinary frequency, urinary urgency, urinary hesitancy, vaginal odor, vaginal bleeding, vaginal discharge or pelvic pain Musc: Denies: neck pain, back pain, extremity pain or joint pain Skin/Breast: Denies: rash Neuro: Denies: headache(s), numbness in extremities, weakness in extremities or sensory changes PFSH ED PFSH: Medical History (Updated 01/24/21 @ 02:48 by ZHANG Clarke) Biliary colic This biliary colic has now resolved after a day of clear liquid diet. She is asymptomatic at this time and her abdominal pain is completely resolved. No significant past medical history Surgical History No significant past surgical history Social History (Updated 08/09/20 @ 16:01 by Aram Lakhani LPN) Smoking and tobacco status: never smoked Second hand smoke exposure: No Alcohol intake: never Desire information about alcohol rehabilitation?: No Desire information about substance/drug rehabilitation?: No Female Reproductive History: Date of last menstrual period: 07/23/18 Physical Exam Const: COMMON NORMALS: no acute distress, patient oriented x3, no limitations and alert GENERAL APPEARANCE: cooperative NUTRITIONAL APPEARANCE: obese ORIENTATION/CONSCIOUSNESS: Yes awake, Yes oriented to person, Yes oriented to place and Yes oriented to time HENMT: COMMON NORMALS: normocephalic and atraumatic HEAD & SCALP: nor mocephalic and atraumatic Resp: COMMON NORMALS: normal respiratory effort and clear to auscultation bilaterally AUSCULTATION: clear to auscultation bilaterally Cardio: COMMON NORMALS: regular rate and regular rhythm RATE: regular rate RHYTHM: regular rhythm GI: COMMON NORMALS: Normal to inspection, nondistended, normoactive bowel sounds present, Soft to palpation, No hepatosplenomegaly present and no masses INSPECTION: Yes normal to inspection PALPATION: Yes Soft to palpation, Yes Tenderness to palpation present (GI) (epigastric, RUQ, RLQ; maximum tenderness is to RLQ with guarding) and Yes No hepatosplenomegaly present Neuro: COMMON NORMALS: patient oriented x3 SENSORIUM/ORIENTATION: Yes aler t, Yes oriented to person, Yes oriented to place and Yes oriented to time Skin: COMMON NORMALS: no rashes or lesions noted GENERAL SKIN EXAM: no rashes or lesions noted Course Reevaluation(s): Reevaluation #1: Patient resting in NAD Vital Signs: Vital signs: Vital Signs Temperature 98.3 F 01/23/21 20:58 Pulse Rate 101 H 01/24/21 00:09 Respiratory Rate 16 01/24/21 01:12 Blood Pressure 123/95 01/24/21 00:09 Pulse Oximetry 99 01/24/21 00:09 MDM - Abdominal Pain MDM Narrative: Medical decision making narrative: Patient is a 20-year-old female here for right-sided abdominal pain over the past 2 days. Vital signs are stable. She appears in no acute distress. Blood work is unremarkable. UA does not look suspicious for infection. She does have 3+ blood however patient is currently on her menstrual cycle. CT scan showing no acute abnormalities. Patient will be discharged home with return to ED precautions. Otherwise follow-up with PCP this week for continued symptoms. Lab Data: Attestation: I reviewed the patient's lab results. Labs: Lab Results 01/23/21 01/23/21 01/23/21 00:15 00:15 00:15 WBC 13.4 10^3/uL H 10 ^3/uL (4.0-10.0) RBC 4.66 10^6/uL 10^6 /uL (4.1-5.3) Hgb 12.7 g/dL g/dL (11.5-15.3) Hct 40.8 % % (37.0-47.0) MCV 87.6 fl fl (81-99) MCH 27.3 pg L pg (28.0-34.0) MCHC 31.1 g/dL g/dL (30.0-36.0) RDW 15.4 % H % (12.1-15.1) Plt Count 227 10^3/cmm 10^3 /cmm (130-400) MPV 12.3 fL H fL (7.4-10.4) Neut % (Auto) 64.5 % % Lymph % (Auto) 25.8 % % [place] % (Auto) 6.0 % % Eos % (Auto) 3.0 % % Baso % (Auto) 0.4 % % Neut # (Auto) 8.62 10^3/uL H 10 ^3/uL (1.8-7.7) Lymph # (Auto) 3.5 10^3/uL 10^3/ uL (0.8-4.8) [place] # (Auto) 0.8 10^3/uL 10^3/ uL (0.2-0.9) Eos # (Auto) 0.4 10^3/uL 10^3/ uL (0.0-0.8) Baso # (Auto) 0.1 10^3/uL 10^3/ uL (0.0-0.1) Nucleated RBC % (a uto) 0 % % Nucleated RBCs # 0.0 /100WBC /100W BC Sodium 139 mmol/L mmol/L (136-145) Potassium 3.6 mmol/L mmol/L (3.5-5.1) Chloride 102 mmol/L mmol/L (98-107) Carbon Dioxide 25 mmol/L mmol/L (22-29) Anion Gap 15.6 (5-19) BUN 20 mg/dL mg/dL (6-20) Creatinine 0.5 mg/dL mg/dL (0.5-0.9) GFR Calculation 154.3 mL/min H mL /min (90-130) Glucose 95 mg/dL mg/dL (65-115) Calculated Osmolal ity 290 mOsm/kg mOsm/ kg (285-295) Calcium 9.3 mg/dL mg/dL (8.5-10.5) Total Bilirubin 0.2 mg/dL mg/dL (0.15-1.2) AST 12 U/L U/L (0-32) ALT 19 U/L U/L (0-33) Alkaline Phosphata se 135 IU/L H IU/L (35-105) Total Protein 7.4 g/dL g/dL (6.6-8.7) Albumin 4.1 g/dL g/dL (3.5-5.2) Globulin 3.3 g/dL g/dL (1.3-4.6) Lipase 17 U/L U/L (13-60) HCG, Qual Negative (Negative) Urine Color Urine Appearance Urine pH Ur Specific Gravit y Urine Protein Urine Glucose (UA) Urine Ketones Urine Blood Urine Nitrate Urine Bilirubin Urine Urobilinogen Ur Leukocyte [place]as[place] ase Urine RBC Urine WBC Ur Squamous Epith Cells Amorphous Sediment Urine Bacteria 01/23/21 21:00 WBC RBC Hgb Hct MCV MCH MCHC RDW Plt Count MPV Neut % (Auto) Lymph % (Auto) [place] % (Auto) Eos % (Auto) Baso % (Auto) Neut # (Auto) Lymph # (Auto) [place] # (Auto) Eos # (Auto) Baso # (Auto) Nucleated RBC % (a uto) Nucleated RBCs # Sodium Potassium Chloride Carbon Dioxide Anion Gap BUN Creatinine GFR Calculation Glucose Calculated Osmolal ity Calcium Total Bilirubin AST ALT Alkaline Phosphata se Total Protein Albumin Globulin Lipase HCG, Qual Urine Color Yellow (Yellow) Urine Appearance Hazy A (CLEAR) Urine pH 6 (5-7) Ur Specific Gravit y 1.020 (1.005-1.030) Urine Protein Neg (Negative) Urine Glucose (UA) Norm (Normal) Urine Ketones Negative (Negative) Urine Blood 3+ H (Negative) Urine Nitrate Negative (Negative) Urine Bilirubin Neg (Negative) Urine Urobilinogen 1 mg/dL H mg/dL (Negative) Ur Leukocyte Chasity ase Negative (Negative) Urine RBC Rare /hpf /hpf (0-2) Urine WBC 0-4 /hpf H /hpf (0-5) Ur Squamous Epith Cells 5-10 /hpf H /hpf (0-5) Amorphous Sediment Not Reportable Urine Bacteria 1+ /hpf H /hpf (NONE) Imaging Data ^: CT Abd/Pel: Radiologist's impression: [employer] [place], [place] [id number] Scan ReportSigned Patient: Calli Morales CUnit #: [id number]: 2000Acct#:[id number]/Sex: 20 / FADM Date: 01/23/21Loc: ERRoom/Bed:Attending Dr: Ordering Provider/Ordering MD: Lynn Donald Date of Service: 01/24/21 Procedure(s): CT abdomen pelvis w con* [id number] Accession Number(s): [id number] Report Number: [id number] PROCEDURE INFORMATION: Exam: CT Abdomen And Pelvis With Contrast Exam date and time: 01/24/2021 12:08 AM Age: 20 years old Clinical indication: Abdominal pain; Localized; Right; Prior surgery; Surgery date: 6+ months; Surgery type: Gb; Patient HX: 7 months post partem; Additional info: R abdominal pain; Hematuria; R/O stone vs appy TECHNIQUE: Imaging protocol: Computed tomography of the abdomen and pelvis with contrast. Radiation optimization: All CT scans at this facility use at least one of these dose optimization techniques: automated exposure control; mA and/or kV adjustment per patient size (includes targeted exams where dose is matched to clinical indication); or iterative reconstruction. Contrast material: OMNI 300; Contrast volume: 95 ml; Contrast route: INTRAVENOUS (IV); COMPARISON: MR MRCP [id number] 07/21/2019 11:21 PM RADIATION DOSE METRICS: Total DLP (mGy-cm): 1696.03 FINDINGS: Liver: Normal. No mass. Gallbladder and bile ducts: The gallbladder has been removed. No biliary ductal dilatation. Pancreas: Normal. No ductal dilation. Spleen: Normal. No splenomegaly. Adrenal glands: Normal. No mass. Kidneys and ureters: Normal. No no renal stone or hydronephrosis. Stomach and bowel: Unremarkable. No obstruction. No mucosal thickening. Appendix: The appendix is normal. Intraperitoneal space: Unremarkable. No free air. No significant fluid collection. Vasculature: Unremarkable. No abdominal aortic aneurysm. Lymph nodes: Unremarkable. No enlarged lymph nodes. Urinary bladder: Unremarkable as visualized. Reproductive: The uterus and ovaries appear normal. Bones/joints: Unremarkable. No acute fracture. Soft tissues: Unremarkable. CT/CT abdomen pelvis w con* [id number] IMPRESSION: No acute abnormality is seen in the abdomen or pelvis. No renal stone is visualized. The appendix is normal. Radiation Dose CTDIVOL = (mGy): DLP = 1696.03 (mGy-cm) Dictated By:Philipp Weinberg MDSigned By:Philipp Weinberg MDSigned Date/Time:01/24/21 [id number]/ [id number] Discharge Plan Discharge Patient Disposition: Home Clinical Impression: Abdominal pain of unknown cause Condition: Stable Prescriptions: No Action ibuprofen 800 mg Tablet 800 mg PO TID Qty: 45 RF: 0 hydrocodone-acetaminophen 5-325 mg Tablet 1 - 2 tab PO Q4H PRN (Reason: Moderate To Severe Pain) Qty: 20 RF: 0 -U 106.5-1 mg Capsule 1 cap PO BREAKFAST Qty: 90 RF: 2 No Known Home Medications RF: 0 Discharge Orders: Discharge ED (Routine); Ordered 01/24/21 Ordered By: Lynn Donald Referrals: Brenden Mejia MD [Primary Care Provider] - Patient Instructions: Abdominal Pain (ED) Activity Restrictions/Additional Instructions: As we discussed we did not find a reason for your abdominal pain today. Please follow-up with primary care later this week for reevaluation of symptoms persist. Return to the emergency department for worsening or severe abdominal pain, repetitive episodes of vomiting or diarrhea, fevers greater than 100.4, generally feeling ill, or any other concerns you may have. I hope you begin to feel better soon. Coding Level of Care Code ED Post Anesthesia Care Unit Nurse for Chg Fwd Exam Detailed
[2021-01-24 00:09] VITALS: BP 123/95; PULSE 101; RESP 19; O2SAT 99
[2021-01-24 00:35] LABS: Basophils # 0.1 10^3/uL (0.0-0.1); Basophils % 0.4 %; Eosinophils # 0.4 10^3/uL (0.0-0.8); Hematocrit 40.8 % (37.0-47.0); Hemoglobin 12.7 g/dL (11.5-15.3); Lymphocytes # 3.5 10^3/uL (0.8-4.8); Lymphocytes % 25.8 %; Mean Corpuscular HGB Conc 31.1 g/dL (30.0-36.0); Mean Corpuscular Hemoglobin 27.3 pg (28.0-34.0); Mean Corpuscular Volume 87.6 fl (81-99); Mean Platelet Volume 12.3 fL (7.4-10.4); Monocytes # 0.8 10^3/uL (0.2-0.9); Neutrophils # 8.62 10^3/uL (1.8-7.7); Neutrophils % 64.5 %; Nucleated Red Blood Cells % 0 %; Platelet Count 227 10^3/cmm (130-400); Red Blood Count 4.66 10^6/uL (4.1-5.3); Red Cell Distribution Width 15.4 % (12.1-15.1); White Blood Count 13.4 10^3/uL (4.0-10.0)
[2021-01-24 00:45] LABS: HCG, Serum Qual Negative (Negative)
[2021-01-24 00:51] LABS: Alanine Aminotransferase 19 U/L (0-33); Albumin Level 4.1 g/dL (3.5-5.2); Alkaline Phosphatase 135 IU/L (35-105); Anion Gap 15.6 (5-19); Aspartate Amino Transferase 12 U/L (0-32); Blood Urea Nitrogen 20 mg/dL (6-20); Calcium 9.3 mg/dL (8.5-10.5); Carbon Dioxide 25 mmol/L (22-29); Chloride 102 mmol/L (98-107); Globulin 3.3 g/dL (1.3-4.6); Glomerular Filtration Rate 154.3 mL/min (90-130); Glucose 95 mg/dL (65-115); Lipase 17 U/L (13-60); Osmolality Calculated 290 mOsm/kg (285-295); Potassium 3.6 mmol/L (3.5-5.1); Sodium 139 mmol/L (136-145); Total Bilirubin 0.2 mg/dL (0.15-1.2); Total Protein 7.4 g/dL (6.6-8.7)
[2021-01-24] MEDS: iohexol 300 mg/mL 100 mL Btl IV (00:58)
[2021-01-24] MEDS: ondansetron 2 mg/ML SDV 2 mL 4 MG IVP (01:10)
[2021-01-24 01:12] VITALS: RESP 16
[2021-01-24] MEDS: morphine 4 mg/mL SDV 1 mL IVP (01:12)
[2021-01-24 03:01] VITALS: BP 100/58; PULSE 78; RESP 16; O2SAT 97
== END 2021-01-24 02:45 | disposition home or self-care (01) ==
PROVIDERS: Emergency Medicine; Emergency Provider Physician Assistant; PCP Family Medicine
DX: R10.31 Right lower quadrant pain (principal); R10.11 Right upper quadrant pain
CPT/HCPCS: 74177; 80053; 81001; 83690; 84703; 85025; 96374; 96375; 99283; J2270; J2405; Q9967

== ENCOUNTER → 2022-02-01 10:30 | Outpatient (BNVA) | payer BC, MEDICAID, SELFPAY | PROVIDERS: PCP Family Medicine; Visit Provider Nurse Practitioner Women's Health | DX: O09.90 Supervision of high risk pregnancy, unspecified, unspecified trimester (principal); Z32.00 Encounter for pregnancy test, result unknown; O26.899 Other specified pregnancy related conditions, unspecified trimester; R12 Heartburn | CPT/HCPCS: 81000; 81025 ==

== ENCOUNTER 2022-02-22 17:52 | Emergency (ER) | payer BC, MEDICAID, SELFPAY ==
[2022-02-22 18:02] VITALS: BP 122/72; PULSE 91; RESP 13; TEMP 36.9; O2SAT 100; BMI 37.0
--- NOTE | 2022-02-22 18:57 | ED_ITS ---
HPI - Female Genitourinary General: Chief complaint: Urogenital-Female Stated complaint: Cramping below the stomach Time Seen by Provider: 02/22/22 18:57 Source: patient Mode of arrival: ambulatory Limitations: no limitations History of Present Illness: Patient presents to our emergency department robinson awan of concerns about pelvic cramping. She states that approximately 2 hours prior to arrival she had pelvic cramping that was felt perhaps a little worse than that.. She states the symptoms are improved some now. She denies any vaginal bleeding. She states she is never had cramping like this other than once her menses. She is approximately 10 weeks gestation. She is a G3 para 2 a 0 with the first being a twin gestation. She had 2 prior C-sections. Denies any fevers or chills. She has had considerable amount of morning sickness over the past week or 2 more so than she has had with prior pregnancies. She states she has been trying to drink fluids but sometimes they do not stay down. She did denies any lightheadedness or near syncope. Associated symptoms: Reports nausea; Deny headache(s), syncope or vaginal discharge Patient : Yes Date of Last Menstrual Period: 07/23/18 Review of Systems Const: Denies: fever(s), chills or body aches Eyes: Denies: change in vision ENMT: Denies: throat pain, odynophagia, nasal discharge or nasal congestion Card: Denies: chest pain, palpitations or syncope Resp: Denies: dyspnea, productive cough or non-productive cough GI: Reports: nausea and vomiting; Denies: diarrhea, hematochezia or melena : Denies: flank pain, difficulty voiding, dysuria, urinary frequency, vaginal bleeding or vaginal discharge Musc: Denies: neck pain, back pain, extremity pain or extremity swelling Skin/Breast: Denies: rash Neuro: Denies: headache(s), numbness in extremities or weakness in extremities PFSH ED PFSH: Medical History No pertinent past medical history neghx: htn,dm,thyroid,dvt/pe PCP: Dr. Mejia Surgical History Hx of section 1) 07/17/2019--> twins gestation, due to distress 2) 06/21/2020--> repeat Hx of cholecystectomy (~06/2019) Family History Grandmother Diabetes Paternal and Maternal Heart disease Paternal Hypercholesteremia Paternal Hypertension Paternal Grandfather Diabetes Maternal and Paternal Hypercholesteremia Paternal Hypertension Paternal Father Heart disease Hypertension Denies family history of Colon cancer Ovarian cancer Breast cancer Uterine cancer Thyroid disease Stroke Social History Smoking and tobacco status: former smoker (0.5-1PPD) Female Reproductive History: Date of last menstrual period: 07/23/18 Physical Exam Narrative: EXAM NARRATIVE: She appears to be comfortable. She is alert and answers questions in a goal- directed fashion. Const: COMMON NORMALS: no acute distress and patient oriented x3 GENERAL APPEARANCE: cooperative NUTRITIONAL APPEARANCE: overweight HENMT: COMMON NORMALS: normocephalic, Normal nasal mucous membranes and turbinates present, moist oral mucous membranes and oropharynx normal HEAD & SCALP: normocephalic NOSE: Normal nasal mucous membranes and turbinates present Eye: COMMON NORMALS: Equal, round and reactive pupils present, EOMs intact bilaterally and conjunctivae normal CONJUNCTIVA: Yes conjunctivae normal PUPIL: Yes Equal, round and reactive pupils present Neck/C-Spine: COMMON NORMALS: full ROM, no lymphadenopathy and Thyroid normal THYROID: Thyroid normal Chest: COMMONS NORMALS: normal inspection of the chest and normal palpation of entire chest wall Resp: COMMON NORMALS: normal respiratory effort, No retractions, No use of accessory muscles and clear to auscultation bilaterally AUSCULTATION: clear to auscultation bilaterally Cardio: COMMON NORMALS: regular rate, regular rhythm, No murmurs present (Cardio) and Peripheral pulses 2+ throughout RATE: regular rate RHYTHM: regular rhythm PERIPHERAL PULSES: Peripheral pulses 2+ throughout GI: COMMON NORMALS: Normal to inspection, nondistended, normoactive bowel sounds present, Soft to palpation and no masses PALPATION: Yes Soft to palpation OTHER: Mild subjective discomfort to palpation in the suprapubic region. No rebound, no guarding. : COMMON NORMALS: Yes no CVA tenderness BLADDER/KIDNEY EXAM: Yes no CVA tenderness Back/Pelvis: COMMON NORMALS: no CVA tenderness, thoracic and lumbar spine normal to inspection, no thoracic nor lumbar tenderness, thoraco-lumbar ROM normal and straight leg raise negative bilaterally Extremity: COMMON NORMALS: normal to inspection, full ROM, no calf tenderness and no pedal edema Neuro: COMMON NORMALS: patient oriented x3, moves all extremities, no focal motor deficits and no sensory deficits noted Skin: COMMON NORMALS: no rashes or lesions noted and turgor normal GENERAL SKIN EXAM: no rashes or lesions noted and turgor normal Course Reevaluation(s): Reevaluation #1: Discussed current findings with patient and spouse. Ultrasound is reassuring. Does have evidence of a lower urinary tract infection that may be contributing to her subjective symptoms but certainly no evidence at this time of a threatened AB, ectopic etc. We will plan on treating her with Keflex for the next 10 days. She does have a penicillin allergy but it was only a rash and she is not had any history of allergic reactions to other antibiotics. Time: 21:26 Vital Signs: Vital signs: Vital Signs Temperature 98.4 F 02/22/22 18:02 Pulse Rate 77 02/22/22 20:31 Respiratory Rate 16 02/22/22 20:31 Blood Pressure 125/50 02/22/22 20:31 Pulse Oximetry 99 02/22/22 20:31 Oxygen Delivery Me thod 02/22/22 20:31 MDM - Female Medical Decision Making 10-week female who comes to the emergency department because of lower abdominal cramping this evening. Not associated with vaginal bleeding extreme pain etc. Her evaluation here revealed her to be clinically stable. Her pelvic ultrasound was reassuring with a live intrauterine gestation without any evidence of ectopic findings free fluid etc. Her urinalysis did suggest a lower urinary tract infection. She is stable and suitable to be treated as an outpatient with OB follow-up. Medical Records I reviewed the patient's medical records. Lab Data I reviewed the patient's lab results. 02/22/22 19:28 02/22/22 19:28 Radiology Impressions Pelvic/Transvag US 02/22/22 19:06 IMPRESSION: 1. Single viable intrauterine gestation estimated at 9 weeks 2 days. Laboratory Results WBC 14.8 10^3/uL (4.0-10.0) H 02/22/22 19:28 RBC 4.98 10^6/uL (4.1-5.3) 12/01/22 19: Hgb 13.8 g/dL (11.5-15.3) 02/22/22: Hct 43.1 % (37.0-47.0) 02/22/22: MCV 86.5 fl (81-99) 02/22/22: MCH 27.7 pg (28.0-34.0) L 02/22/22: MCHC 32.0 g/dL (30.0-36.0) 02/22/22: RDW 14.9 % (12.1-15.1) 02/22/22: Plt Count 234 10^3/cmm (130-400) 02/22/22 MPV 11.6 fL (7.4-10.4) H 02/22/22 Neut % (Auto) 77.3 % 02/22/22: Lymph % (Auto) 17.9 % 02/22/22: [place] % (Auto) 3.9 % 02/22/22: Eos % (Auto) 0.3 % 02/22/22: Baso % (Auto) 0.3 % 02/22/22 Neut # (Auto) 11.46 10^3/uL (1.8-7.7) H 02/22/22: Lymph # (Auto) 2.7 10^3/uL (0.8-4.8) 02/22/22: [place] # (Auto) 0.6 10^3/uL (0.2-0.9) 02/22/22: Eos # (Auto) 0.0 10^3/uL (0.0-0.8) 02/22/22: Baso # (Auto) 0.0 10^3/uL (0.0-0.1) 02/22/22 Nucleated RBC % (auto) 0 % 02/22/22 Nucleated RBCs # 0.0 /100WBC 02/22/22: Sodium 132 mmol/L (136-145) L 02/22/22: Potassium 3.8 mmol/L (3.5-5.1) 02/22/22: Chloride 99 mmol/L (98-107) 02/22/22: Carbon Dioxide 20 mmol/L (22-29) L 02/22/22: Anion Gap 16.8 (5-19) 02/22/22: BUN 9 mg/dL (6-20) 02/22/22: Creatinine 0.4 mg/dL (0.5-0.9) L 02/22/22 GFR Calculation 197.8 mL/min (90-130) H 02/22/22: Glucose 85 mg/dL (65-115) 02/22/22 Calculated Osmolality 272 mOsm/kg (285-295) L 02/22/22: Calcium 9.5 mg/dL (8.5-10.5) 02/22/22: Total Bilirubin 0.3 mg/dL (0.15-1.2) 02/22/22: AST 17 U/L (0-32) 02/22/22: ALT 26 U/L (0-33) 02/22/22: Alkaline Phosphatase 110 U/L (35-105) H 02/22/22: Total Protein 7.9 g/dL (6.6-8.7) 02/22/22: Albumin 3.8 g/dL (3.5-5.2) 02/22/22: Globulin 4.1 g/dL (1.3-4.6) 02/22/22: Urine Color Yellow (Yellow) 02/22/22: Urine Appearance Hazy (CLEAR) A 02/22/22: Urine pH 6 (5-7) 02/22/22: Ur Specific [place] 1.025 (1.005-1.030) 02/22/22: Urine Protein Trace (Negative) 02/22/22 Urine Glucose (UA) Norm (Normal) 02/22/22: Urine Ketones 3+ (Negative) H 02/22/22 19: Urine Blood Neg (Negative) 02/22/22: Urine Nitrate Positive (Negative) H 02/22/22 Urine Bilirubin Neg (Negative) 02/22/22 19:28 Urine Urobilinogen Norm mg/dL (Negative) 02/22/22 19:28 Ur Leukocyte Esterase Negative (Negative) 02/22/22 19:28 Urine RBC 0-4 /hpf (0-2) H 02/22/22 19:28 Urine WBC 5-10 /hpf (0-5) H 02/22/22 19:28 Ur Squamous Epith Cells 0-4 /hpf (0-5) H 02/22/22 19:28 Amorphous Sediment Not Reportable 02/22/22 19:28 Urine Bacteria 2+ /hpf (NONE) H 02/22/22 19:28 Discharge Plan Discharge Patient Disposition: Home Clinical Impression: Urinary tract infection, Intrauterine Condition: Stable Prescriptions: New cephalexin 500 mg capsule 500 mg PO TID 10 Days Qty: 30 0RF ondansetron 4 mg tablet,disintegrating 4 mg PO Q8H 5 Days Qty: 15 0RF No Action famotidine [Pepcid] 20 mg tablet 20 mg PO BID Qty: 60 1RF Discharge Orders: Discharge ED (Routine); Ordered 02/22/22 Ordered By: Kody Weinberg Referrals: Brenden Mejia MD [Primary Care Provider] - Discharge Diet: Usual diet Discharge Activity: Increase activity as tolerated Patient Instructions: Opioid Safety, Pain Management Activity Restrictions/Additional Instructions: As we discussed your ultrasound is reassuring this evening. You have evidence of urinary tract infection. We have prescribed medication to treat that infection. We have also given you a short course of medication to use for nausea if you find that you are vomiting and cannot keep fluids or food down. 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 Coding Level of Care Code ED Metal Plater for Chg Fwd Exam Comprehensive
--- NOTE | 2022-02-22 19:06 | USR_ITS ---
PROCEDURE INFORMATION: Exam: US First Trimester, Transabdominal Exam date and time: 02/22/2022 8:00 PM Age: 21 years old Clinical indication: complicated by abdominal or pelvic pain; Other: Generalized bilateral pelvic cramping today; Gestational age or lmp: 9w 1d by lmp; ; Prior surgery; Surgery date: 6+ months; Surgery type: Csections x 2; Patient HX: Pelvic cramping today. No vag bleed; Additional info: 10 weeks ega with cramping LABS AND CLINICAL REPORTS: Last menstrual period start date: 01/09/2022 Gestational age (Established): 9 w 1 d Estimated due date (Established): 09/26/2022 TECHNIQUE: Imaging protocol: Real-time transabdominal obstetrical ultrasound of the maternal pelvis and a first trimester , less than 14 weeks 0 days, with image documentation. COMPARISON: US OB >= 14 weeks fetus [id number] 02/09/2020 10:15 AM FINDINGS: GESTATION: Gestation: Intrauterine gestation is visualized. pole is visualized. Yolk sac is visualized. Embryonic/ heart rate: 164 bpm Extra-embryonic membranes/Placenta: Unremarkable. No subchorionic bleed. Amniotic fluid: Amniotic and extra-amniotic fluid are normal for gestational age. BIOMETRY: Gestational age (AUA): 9 w 2 d Estimated due date (AUA): 09/25/2022 [place]-Rump length: 26 mm. EGA (CRL) is 9 w 2 d MATERNAL: Uterus: Uterus measures 13.5 cm x 5.6 cm x 8.5 cm. Cervix: Cervical length measures 3.9 cm. Right ovary/adnexa: Right ovary measures 3.3 cm x 2 cm x 2.4 cm. Right ovarian volume is 8.4 mL. Left ovary/adnexa: Left ovary measures 2.9 cm x 1.7 cm x 2.5 cm. Left ovarian volume is 6.7 mL. Intraperitoneal space: No intraperitoneal free fluid. US/US OB <= 14 weeks fetus [id number] IMPRESSION: 1. Single viable intrauterine gestation estimated at 9 weeks 2 days.
[2022-02-22] MEDS: lactated ringers 1,000 ML 999 ML IV (19:24)
[2022-02-22] MEDS: ondansetron 2 mg/ML SDV 2 mL 4 MG IVP (19:24)
[2022-02-22 19:27] VITALS: BP 124/60; PULSE 69; RESP 16; O2SAT 98
[2022-02-22 19:35] LABS: Basophils % 0.3 %; Eosinophils % 0.3 %; Hematocrit 43.1 % (37.0-47.0); Hemoglobin 13.8 g/dL (11.5-15.3); Lymphocytes # 2.7 10^3/uL (0.8-4.8); Lymphocytes % 17.9 %; Mean Corpuscular Hemoglobin 27.7 pg (28.0-34.0); Mean Corpuscular Volume 86.5 fl (81-99); Mean Platelet Volume 11.6 fL (7.4-10.4); Monocytes # 0.6 10^3/uL (0.2-0.9); Monocytes % 3.9 %; Neutrophils # 11.46 10^3/uL (1.8-7.7); Neutrophils % 77.3 %; Nucleated Red Blood Cells % 0 %; Platelet Count 234 10^3/cmm (130-400); Red Blood Count 4.98 10^6/uL (4.1-5.3); Red Cell Distribution Width 14.9 % (12.1-15.1); White Blood Count 14.8 10^3/uL (4.0-10.0)
[2022-02-22 19:42] LABS: Add Urine Microscopic? YES; Bilirubin Urine Neg (Negative); Blood Urine Neg (Negative); Glucose Urine UA Norm (Normal); Ketones Urine 3+ (Negative); Leukocyte Esterase Urine Negative (Negative); Nitrate Urine Positive (Negative); Protein Urine Trace (Negative); Specific Gravity, Urine 1.025 (1.005-1.030); Urine Appearance Hazy (CLEAR); Urine Color Yellow (Yellow); Urobilinogen Urine Norm (Negative); pH Urine 6 (5-7)
[2022-02-22 19:45] LABS: Add Urine Culture? Yes; Bacteria Urine 2+ /hpf; RBC Urine 0-4 /hpf (0-2); Squamous Epithelial Cell Urine 0-4 /hpf (0-5)
[2022-02-22 19:59] LABS: Alanine Aminotransferase 26 U/L (0-33); Albumin Level 3.8 g/dL (3.5-5.2); Alkaline Phosphatase 110 U/L (35-105); Anion Gap 16.8 (5-19); Aspartate Amino Transferase 17 U/L (0-32); Blood Urea Nitrogen 9 mg/dL (6-20); Calcium 9.5 mg/dL (8.5-10.5); Carbon Dioxide 20 mmol/L (22-29); Chloride 99 mmol/L (98-107); Globulin 4.1 g/dL (1.3-4.6); Glomerular Filtration Rate 197.8 mL/min (90-130); Glucose 85 mg/dL (65-115); Osmolality Calculated 272 mOsm/kg (285-295); Potassium 3.8 mmol/L (3.5-5.1); Sodium 132 mmol/L (136-145); Total Bilirubin 0.3 mg/dL (0.15-1.2); Total Protein 7.9 g/dL (6.6-8.7)
[2022-02-22 20:31] VITALS: BP 125/50; PULSE 77; RESP 16; O2SAT 99
[2022-02-22 21:30] VITALS: BP 117/77; PULSE 78; RESP 16; O2SAT 98
[2022-02-22] MEDS: cephALEXin 500 mg Capsule PO (21:39)
[2022-02-22 21:40] VITALS: BP 177/77; PULSE 71; RESP 16; O2SAT 98
== END 2022-02-22 21:41 | disposition home or self-care (01) ==
PROVIDERS: Emergency Medicine; Emergency Provider Emergency Medicine; PCP Family Medicine
DX: O23.41 Unspecified infection of urinary tract in pregnancy, first trimester (principal); N39.0 Urinary tract infection, site not specified; Z3A.09 9 weeks gestation of pregnancy; Z87.891 Personal history of nicotine dependence
CPT/HCPCS: 76801; 76830; 76856; 80053; 81001; 85025; 87077; 87086; 87186; 96361; 96374; 99284; J2405; J7120

== ENCOUNTER → 2022-02-27 16:13 | Outpatient (BNVA) | payer BC, MEDICAID, SELFPAY | PROVIDERS: PCP Family Medicine; Visit Provider Obstetrics & Gynecology | DX: O09.899 Supervision of other high risk pregnancies, unspecified trimester (principal) | CPT/HCPCS: 81000 ==

== ENCOUNTER → 2022-03-06 09:20 | Outpatient (BNVA) | payer BC, MEDICAID, SELFPAY | PROVIDERS: PCP Family Medicine; Visit Provider Obstetrics & Gynecology | DX: O09.899 Supervision of other high risk pregnancies, unspecified trimester (principal) | CPT/HCPCS: 80307; 84315; 85025; 86592; 86762; 86803; 86850; 86900; 87086; 87340; 87806 ==

== ENCOUNTER → 2022-04-09 10:45 | Outpatient (BNVA) | payer BC, MEDICAID, SELFPAY | PROVIDERS: PCP Family Medicine; Visit Provider Obstetrics & Gynecology | DX: O09.899 Supervision of other high risk pregnancies, unspecified trimester (principal); O09.91 Supervision of high risk pregnancy, unspecified, first trimester; O16.9 Unspecified maternal hypertension, unspecified trimester; O09.291 Supervision of pregnancy with other poor reproductive or obstetric history, first trimester; O34.219 Maternal care for unspecified type scar from previous cesarean delivery; O99.210 Obesity complicating pregnancy, unspecified trimester | CPT/HCPCS: 81000; 87491; 87591; 87661 ==

== ENCOUNTER 2022-04-12 12:11 | Outpatient (CLI) | payer BC, MEDICAID, SELFPAY ==
[2022-04-12 13:07] LABS: Total Volume, Urine 1700 mL
[2022-04-12 13:29] LABS: Urine Creatinine 124 mg/dL (28-217); Urine Protein Random 9 mg/dL
[2022-04-12 13:30] LABS: UPRO/UCREAT Ratio 0.07 mg/mg CR
[2022-04-12 13:58] LABS: Basophils % 0.1 %; Eosinophils # 0.1 10^3/uL (0.0-0.8); Eosinophils % 0.8 %; Hematocrit 37.8 % (37.0-47.0); Lymphocytes # 1.9 10^3/uL (0.8-4.8); Lymphocytes % 20.5 %; Mean Corpuscular HGB Conc 31.7 g/dL (30.0-36.0); Mean Corpuscular Hemoglobin 28.5 pg (28.0-34.0); Mean Corpuscular Volume 89.8 fl (81-99); Mean Platelet Volume 12.4 fL (7.4-10.4); Monocytes # 0.5 10^3/uL (0.2-0.9); Monocytes % 5.3 %; Neutrophils # 6.81 10^3/uL (1.8-7.7); Neutrophils % 72.9 %; Nucleated Red Blood Cells % 0 %; Platelet Count 184 10^3/cmm (130-400); Red Blood Count 4.21 10^6/uL (4.1-5.3); Red Cell Distribution Width 14.9 % (12.1-15.1); White Blood Count 9.3 10^3/uL (4.0-10.0)
[2022-04-12 14:19] LABS: Alanine Aminotransferase 10 U/L (0-33); Albumin Level 3.5 g/dL (3.5-5.2); Alkaline Phosphatase 94 U/L (35-105); Anion Gap 13.5 (5-19); Aspartate Amino Transferase 10 U/L (0-32); Blood Urea Nitrogen 7 mg/dL (6-20); Calcium 9.1 mg/dL (8.5-10.5); Carbon Dioxide 22 mmol/L (22-29); Chloride 102 mmol/L (98-107); Globulin 3.5 g/dL (1.3-4.6); Glomerular Filtration Rate 197.8 mL/min (90-130); Glucose 116 mg/dL (65-115); Glucose Tolerance 1 Hour Gest 116 mg/dL; Osmolality Calculated 277 mOsm/kg (285-295); Potassium 3.5 mmol/L (3.5-5.1); Sodium 134 mmol/L (136-145); Total Bilirubin 0.2 mg/dL (0.15-1.2)
== END 2022-04-12 12:12 | disposition home or self-care (01) ==
LOC: LAB 12:13
PROVIDERS: PCP Family Medicine; Visit Provider Obstetrics & Gynecology
DX: O09.899 Supervision of other high risk pregnancies, unspecified trimester (principal)
CPT/HCPCS: 36415; 80053; 82570; 82950; 84156; 85025

== ENCOUNTER → 2022-05-01 12:57 | Outpatient (BNVA) | payer BC, MEDICAID, SELFPAY | PROVIDERS: PCP Family Medicine; Visit Provider Obstetrics & Gynecology | DX: O09.90 Supervision of high risk pregnancy, unspecified, unspecified trimester (principal); Z3A.00 Weeks of gestation of pregnancy not specified | CPT/HCPCS: 81000 ==

== ENCOUNTER 2022-05-06 00:05 | Emergency (ER) | payer BC, MEDICAID, SELFPAY ==
[2022-05-06 00:19] VITALS: BP 131/75; PULSE 99; RESP 17; TEMP 36.6; O2SAT 98; BMI 37.5
[2022-05-06 00:35] VITALS: BP 128/80
--- NOTE | 2022-05-06 00:43 | ED_ITS ---
HPI - Dizziness General: Chief Complaint: Dizziness Stated Complaint: HIGH BP, light headed, 19 weeks Time Seen by Provider: 05/06/22 00:43 PFSH ED PFSH: Medical History No pertinent past medical history neghx: htn,dm,thyroid,dvt/pe PCP: Dr. Mejia Surgical History Hx of section 1) 07/17/2019--> twins gestation, due to distress 2) 06/21/2020--> repeat Hx of cholecystectomy (~06/2019) Family History Grandmother Diabetes Paternal and Maternal Heart disease Paternal Hypercholesteremia Paternal Hypertension Paternal Grandfather Diabetes Maternal and Paternal Hypercholesteremia Paternal Hypertension Paternal Father Heart disease Hypertension Denies family history of Colon cancer Ovarian cancer Breast cancer Uterine cancer Thyroid disease Stroke Social History Smoking and tobacco status: former smoker (0.5-1PPD) Female Reproductive History: Date of last menstrual period: 07/23/18 Course Vital Signs: Vital signs: Vital Signs Temperature 97.9 F 05/06/22 00:19 Pulse Rate 99 05/06/22 00:19 Respiratory Rate 17 05/06/22 00:19 Blood Pressure 128/80 05/06/22 00:35 Pulse Oximetry 98 05/06/22 00:19 Oxygen Delivery Me thod 05/06/22 00:19 Discharge Plan Discharge Condition: Stable Prescriptions: No Action famotidine [Pepcid] 20 mg tablet 20 mg PO BID Qty: 60 2RF labetalol 100 mg tablet 100 mg PO BID Qty: 90 0RF Referrals: Brenden Mejia MD [Primary Care Provider] - Coding Level of Care Code ED [employer] Banker for Chg Nery
--- NOTE | 2022-05-06 01:13 | ECG_ITS ---
[facility] Test Date: 2022-05-06 Pat Name: Calli Morales Department: Room: Gender: Female Assistant Administrator: : 2000 Requested By: Kirill Ko Order Number: [id number] Genie MD: Dion Serrato M.D. Measurements Intervals [place] Rate: 82 P: 1 [place]: 133 QRS: 15 QRSD: 101 T: 2 QT: 409 QTc: 480 Interpretive Statements SINUS RHYTHM No previous ECG available for comparison Electronically Signed On 05-06-2022 8:41:50 PRISON OFFICER by Dion Serrato M.D. [email or web address] [email or web address] medical center.[employer]/store/Ov/[id number]
[2022-05-06 01:52] LABS: Add Urine Microscopic? NO; Charge for UA Resulting for Rev
[2022-05-06 01:57] LABS: Bilirubin Urine Neg (Negative); Blood Urine Neg (Negative); Glucose Urine UA Norm (Normal); Ketones Urine 1+ (Negative); Leukocyte Esterase Urine Negative (Negative); Nitrate Urine Negative (Negative); Protein Urine Neg (Negative); Urine Appearance Hazy (CLEAR); Urine Color Yellow (Yellow); Urobilinogen Urine Neg (Negative); pH Urine 6 (5-7)
[2022-05-06 02:13] LABS: Basophils % 0.3 %; Eosinophils # 0.1 10^3/uL (0.0-0.8); Eosinophils % 0.6 %; Hematocrit 35.5 % (37.0-47.0); Hemoglobin 11.3 g/dL (11.5-15.3); Lymphocytes # 3.1 10^3/uL (0.8-4.8); Lymphocytes % 21.7 %; Mean Corpuscular HGB Conc 31.8 g/dL (30.0-36.0); Mean Corpuscular Volume 88.1 fl (81-99); Mean Platelet Volume 11.9 fL (7.4-10.4); Monocytes # 0.6 10^3/uL (0.2-0.9); Monocytes % 4.5 %; Neutrophils % 72.5 %; Nucleated Red Blood Cells % 0 %; Platelet Count 179 10^3/cmm (130-400); Red Blood Count 4.03 10^6/uL (4.1-5.3); White Blood Count 14.2 10^3/uL (4.0-10.0)
[2022-05-06 02:29] VITALS: BP 107/64
[2022-05-06 02:34] LABS: Alanine Aminotransferase 11 U/L (0-33); Albumin Level 3.6 g/dL (3.5-5.2); Alkaline Phosphatase 92 U/L (35-105); Anion Gap 18.7 (5-19); Aspartate Amino Transferase 10 U/L (0-32); Blood Urea Nitrogen 7 mg/dL (6-20); Calcium 8.9 mg/dL (8.5-10.5); Carbon Dioxide 19 mmol/L (22-29); Chloride 100 mmol/L (98-107); Glomerular Filtration Rate 196.1 mL/min (90-130); Glucose 94 mg/dL (65-115); Magnesium 1.6 mg/dL (1.7-2.3); Osmolality Calculated 276 mOsm/kg (285-295); Phosphorus 2.9 mg/dL (2.5-4.5); Potassium 3.7 mmol/L (3.5-5.1); Sodium 134 mmol/L (136-145); Total Bilirubin 0.2 mg/dL (0.15-1.2); Total Protein 6.6 g/dL (6.6-8.7)
--- NOTE | 2022-05-06 06:02 | ED_ITS ---
HPI - Dizziness General: Chief Complaint: Dizziness Stated Complaint: HIGH BP, light headed, 19 weeks Time Seen by Provider: 05/06/22 00:43 Source: patient History of Present Illness: HPI Narrative: 22-year-old female who is 19 weeks gestation. She presents after being dizzy at work, taking her blood pressure, noting hypertension. Blood pressures were in the 180s over 100s. Her dizziness is improved currently, and her blood pressure is improved as well. She denies any chest discomfort. No change in her mental status. MD elicited complaint: dizziness and lightheadedness Pertinent past history: other Onset (ago): hour(s) Timing: sudden onset Severity: moderate Description: lightheadedness Context: other History of similar symptoms: Yes Exacerbating factors: movement/ambulation Associated symptoms: Reports nausea; Denies abnormal vaginal bleeding, chest pain, cough, diaphoresis, fevers/chills, headache(s), nasal congestion, short of breath or vomiting Associated neuro symptoms: Deny confusion, difficulty speaking, dysphagia, diplopia, extremity weakness, facial numbness, facial weakness, gait changes, numbness in extremities or visual changes Review of Systems Const: Denies: diaphoresis ENMT: Denies: nasal congestion Card: Denies: chest pain GI: Reports: nausea; Denies: vomiting or dysphagia Neuro: Denies: headache(s), numbness in extremities or confusion PFSH ED PFSH: Medical History No pertinent past medical history neghx: htn,dm,thyroid,dvt/pe PCP: Dr. Mejia Surgical History Hx of section 1) 07/17/2019--> twins gestation, due to distress 2) 06/21/2020--> repeat Hx of cholecystectomy (~06/2019) Family History Grandmother Diabetes Paternal and Maternal Heart disease Paternal Hypercholesteremia Paternal Hypertension Paternal Grandfather Diabetes Maternal and Paternal Hypercholesteremia Paternal Hypertension Paternal Father Heart disease Hypertension Denies family history of Colon cancer Ovarian cancer Breast cancer Uterine cancer Thyroid disease Stroke Social History Smoking and tobacco status: former smoker (0.5-1PPD) Female Reproductive History: Date of last menstrual period: 07/23/18 Physical Exam Const: COMMON NORMALS: no acute distress and alert GENERAL APPEARANCE: cooperative; not ill appearing and not frail appearing HENMT: COMMON NORMALS: normocephalic, atraumatic and Normal external nose present HEAD & SCALP: normocephalic and atraumatic FACE & SINUS: normal facial exam and face symmetric NOSE: Normal external nose present Eye: COMMON NORMALS: Equal, round and reactive pupils present and EOMs intact bilaterally PUPIL: Yes Equal, round and reactive pupils present Neck/C-Spine: GENERAL: Yes trachea midline Chest: CHEST: Yes Symmetrical chest wall rise Resp: COMMON NORMALS: normal respiratory effort, No retractions, No use of accessory muscles and clear to auscultation bilaterally AUSCULTATION: clear to auscultation bilaterally Cardio: COMMON NORMALS: regular rate and regular rhythm RATE: regular rate RHYTHM: regular rhythm GI: COMMON NORMALS: Normal to inspection, nondistended, normoactive bowel sounds present Extremity: COMMON NORMALS: no pedal edema Neuro: HEMANT COMA SCALE: document GCS findings [place] coma scale eye opening: Spontaneous Hemant coma scale verbal response: Orientated [place] coma scale motor response: Obey commands Hemant coma scale total score: 15 SENSORIUM/ORIENTATION: Yes alert CRANIAL NERVES: Yes CN normal except as noted SPEECH: speech normal SENSORY EXAM: Yes extremities (intact) MOTOR EXAM: Normal motor muscle tone present throughout Psych: COMMON NORMALS: speech normal SPEECH: Yes normal speech Skin: COMMON NORMALS: no rashes or lesions noted GENERAL SKIN EXAM: no rashes or lesions noted Course Vital Signs: Vital signs: Vital Signs Temperature 97.9 F 05/06/22 00:19 Pulse Rate 99 05/06/22 00:19 Respiratory Rate 17 05/06/22 00:19 Blood Pressure 107/64 05/06/22 02:29 Pulse Oximetry 98 05/06/22 00:19 Oxygen Delivery Me thod 05/06/22 00:19 MDM - Dizziness Medical Decision Making Blood pressure is normalized on its own. No treatment was necessary. Her EKG is normal. White count is 14.2 with no shift. Hemoglobin 11.3. Renal function is normal. There is no proteinuria present. No elevation in her liver enzymes. She will be allowed discharge. 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 Lab Data 05/06/22 02:05 05/06/22 02:05 Laboratory Results WBC 14.2 10^3/uL (4.0-10.0) H 05/06/22 02:05 RBC 4.03 10^6/uL (4.1-5.3) L 05/06/22 02:05 Hgb 11.3 g/dL (11.5-15.3) L 05/06/22 02:05 Hct 35.5 % (37.0-47.0) L 05/06/22 02:05 MCV 88.1 fl (81-99) 05/06/22 02:05 MCH 28.0 pg (28.0-34.0) 05/06/22 02:05 MCHC 31.8 g/dL (30.0-36.0) 05/06/22 02:05 RDW 15.0 % (12.1-15.1) 05/06/22 02:05 Plt Count 179 10^3/cmm (130-400) 05/06/22 02:05 MPV 11.9 fL (7.4-10.4) H 05/06/22 02:05 Neut % (Auto) 72.5 % 05/06/22 02:05 Lymph % (Auto) 21.7 % 05/06/22 02:05 Pike % (Auto) 4.5 % 05/06/22 02:05 Eos % (Auto) 0.6 % 05/06/22 02:05 Baso % (Auto) 0.3 % 05/06/22 02:05 Neut # (Auto) 10.30 10^3/uL (1.8-7.7) H 05/06/22 02:05 Lymph # (Auto) 3.1 10^3/uL (0.8-4.8) 05/06/22 02:05 Pike # (Auto) 0.6 10^3/uL (0.2-0.9) 05/06/22 02:05 Eos # (Auto) 0.1 10^3/uL (0.0-0.8) 05/06/22 02:05 Baso # (Auto) 0.0 10^3/uL (0.0-0.1) 05/06/22 02:05 Nucleated RBC % (auto) 0 % 05/06/22 02:05 Nucleated RBCs # 0.0 /100WBC 05/06/22 02:05 Sodium 134 mmol/L (136-145) L 05/06/22 02:05 Potassium 3.7 mmol/L (3.5-5.1) 05/06/22 02:05 Chloride 100 mmol/L (98-107) 05/06/22 02:05 Carbon Dioxide 19 mmol/L (22-29) L 05/06/22 02:05 Anion Gap 18.7 (5-19) 05/06/22 02:05 BUN 7 mg/dL (6-20) 05/06/22 02:05 Creatinine 0.4 mg/dL (0.5-0.9) L 05/06/22 02:05 GFR Calculation 196.1 mL/min (90-130) H 05/06/22 02:05 Glucose 94 mg/dL (65-115) 05/06/22 02:05 Calculated Osmolality 276 mOsm/kg (285-295) L 05/06/22 02:05 Calcium 8.9 mg/dL (8.5-10.5) 05/06/22 02:05 Phosphorus 2.9 mg/dL (2.5-4.5) 05/06/22 02:05 Magnesium 1.6 mg/dL (1.7-2.3) L 05/06/22 02:05 Total Bilirubin 0.2 mg/dL (0.15-1.2) 05/06/22 02:05 AST 10 U/L (0-32) 05/06/22 02:05 ALT 11 U/L (0-33) 05/06/22 02:05 Alkaline Phosphatase 92 U/L (35-105) 05/06/22 02:05 Total Protein 6.6 g/dL (6.6-8.7) 05/06/22 02:05 Albumin 3.6 g/dL (3.5-5.2) 05/06/22 02:05 Globulin 3.0 g/dL (1.3-4.6) 05/06/22 02:05 Urine Color Yellow (Yellow) 05/06/22 01:38 Urine Appearance Hazy (CLEAR) A 05/06/22 01:38 Urine pH 6 (5-7) 05/06/22 01:38 Ur Specific Remlap 1.020 (1.005-1.030) 05/06/22 01:38 Urine Protein Neg (Negative) 05/06/22 01:38 Urine Glucose (UA) Norm (Normal) 05/06/22 01:38 Urine Ketones 1+ (Negative) H 05/06/22 01:38 Urine Blood Neg (Negative) 05/06/22 01:38 Urine Nitrate Negative (Negative) 05/06/22 01:38 Urine Bilirubin Neg (Negative) 05/06/22 01:38 Urine Urobilinogen Neg mg/dL (Negative) 05/06/22 01:38 Ur Leukocyte Esterase Negative (Negative) 05/06/22 01:38 Discharge Plan Discharge Patient Disposition: Home Clinical Impression: Hypertension affecting Condition: Stable Prescriptions: No Action famotidine [Pepcid] 20 mg tablet 20 mg PO BID Qty: 60 2RF labetalol 100 mg tablet 100 mg PO BID Qty: 90 0RF Discharge Orders: Discharge ED (Routine); Ordered 05/06/22 Ordered By: Kirill Crawford Referrals: Kody Gonzalez MD [Physician] - 1-3 days Brenden Mejia MD [Primary Care Provider] - Patient Instructions: Hypertension During (ED) Activity Restrictions/Additional Instructions: Check your blood pressure twice daily. Call your doctor on Saturday and let them know you were seen here after an episode of high blood pressure. Return for worsening dizziness, mental status changes, seizure, any other concerning symptoms. Stand Alone Forms: Work/School Release Coding Level of Care Code ED Evidence Specialist for Yuni Gabriel
== END 2022-05-06 03:44 | disposition home or self-care (01) ==
PROVIDERS: Emergency Provider Emergency Medicine; PCP Family Medicine
DX: O16.2 Unspecified maternal hypertension, second trimester (principal); Z3A.19 19 weeks gestation of pregnancy; Z87.891 Personal history of nicotine dependence
CPT/HCPCS: 80053; 81003; 83735; 84100; 85025; 93005; 99284

== ENCOUNTER → 2022-05-11 08:05 | Outpatient (BNVA) | payer BC, MEDICAID, SELFPAY | PROVIDERS: PCP Family Medicine; Visit Provider Obstetrics & Gynecology | DX: Z34.92 Encounter for supervision of normal pregnancy, unspecified, second trimester (principal); Z3A.20 20 weeks gestation of pregnancy | CPT/HCPCS: 76805 ==

== ENCOUNTER → 2022-05-15 10:00 | Outpatient (BNVA) | payer BC, MEDICAID, SELFPAY | PROVIDERS: PCP Family Medicine; Visit Provider Obstetrics & Gynecology | DX: O09.899 Supervision of other high risk pregnancies, unspecified trimester (principal); Z3A.00 Weeks of gestation of pregnancy not specified | CPT/HCPCS: 81000; 87077; 87086; 87184 ==

== ENCOUNTER 2022-05-18 18:10 | Outpatient (CLI) | payer BC, MEDICAID, SELFPAY ==
[2022-05-18] VITALS (11 sets, daily range): BP systolic 109–144; BP diastolic 55–68; PULSE 81–107; RESP 18; TEMP 36.2; BMI 37.5
[2022-05-18 19:13] LABS: Bilirubin Urine Neg (Negative); Blood Urine Neg (Negative); Glucose Urine UA Norm (Normal); Ketones Urine 1+ (Negative); Leukocyte Esterase Urine Negative (Negative); Nitrate Urine Positive (Negative); Protein Urine Neg (Negative); Specific Gravity, Urine 1.025 (1.005-1.030); Urine Color Yellow (Yellow); Urobilinogen Urine Neg (Negative); pH Urine 6 (5-7)
[2022-05-18 19:22] LABS: Bacteria Urine 3+ /hpf; RBC Urine 0-4 /hpf (0-2); WBC Urine 0-4 /hpf (0-5)
[2022-05-18 19:23] LABS: Add Urine Culture? No; Mucus Urine 2+ /hpf
[2022-05-18 19:38] LABS: Urine Creatinine 200 mg/dL (28-217); Urine Protein Random 15 mg/dL
[2022-05-18 19:47] LABS: UPRO/UCREAT Ratio 0.08 mg/mg CR
[2022-05-18] MEDS: ceFAZolin 1,000 MG in sodium chloride 0.9% (plus) 50 ML 100 MG IV (20:09)
[2022-05-18] MEDS: lactated ringers 1,000 ML 999 ML IV (20:09)
--- NOTE | 2022-05-18 20:56 | P.TNLD_ITS ---
OB L&D Triage Visit Information: Date of evaluation: 05/18/22 Comments/Additional reason(s) for visit: 22yo female at 21.2 wk IUP, BELLA 09/26/22, presented to LD c/o increased BPnd feeling light headed today. Pt has hx of gestational HTN and was started on Labetolol 100mg BID at 17wks. Pt admits to occasional Nausea and vomiting, had JOAQUIN that was relieved with tylenol, no Abd or pelvic pain. UA- results reviewed Evaluation: Laboratory results: Laboratory Tests 05/18/22 05/18/22 18:30 18:30 Urine Color Yellow Urine Appearance Sl cloudy A Urine pH 6 Ur Specific Gravit y 1.025 Urine Protein Neg Urine Glucose (UA) Norm Urine Ketones 1+ H Urine Blood Neg Urine Nitrate Positive H Urine Bilirubin Neg Urine Urobilinogen Neg Ur Leukocyte Chasity ase Negative Urine RBC 0-4 H Urine WBC 0-4 H Ur Squamous Epith Cells 10-15 H Calcium Oxalate Cr ystal 5-10 H Amorphous Sediment Not Reportable Urine Bacteria 3+ H Urine Mucus 2+ U Random Total Pro tein 15 Urine Creatinine 200 Protein/Creatinin Ratio 0.08 Vital signs: Vital Signs - 24 hr 05/18/22 18:45 05/18/22 18:31 05/18/22 18:51 Temperature 97.2 F L Pulse Rate 107 H 93 Respiratory Rate 18 Blood Pressure 134/62 131/60 05/18/22 18:45 05/18/22 19:11 05/18/22 19:31 Temperature 97.2 F L Pulse Rate 91 95 Respiratory Rate 18 Blood Pressure 118/58 109/55 05/18/22 19:51 05/18/22 20:11 05/18/22 20:32 Temperature Pulse Rate 88 86 89 Respiratory Rate Blood Pressure 144/64 123/65 115/59 05/18/22 20:51 Temperature Pulse Rate 81 Respiratory Rate Blood Pressure 116/68 Care BELLA Calculator Estimated Delivery Date Method Current WG Current Estimate 09/26/22 LMP (Certain) 21w 2d Specific Issues/Plans * HX OF PRE-E AT 29 WEEKS with first * HX OF TWIN GESTATION; first * HX OF SECTION X 2 * HEARTBURN * OBESITY-- needs early GCT Final Diagnosis Final Diagnosis (1) Supervision of other high-risk : Plan: A. UTI 21 wk IUP Previous C/S x 2 Hx of PIH P. OBS on LD IV hydration with IVPB of Ancef, and Rx to be called in for Keflex 500mg BID x 7 days. Increase PO fluids at home. Discourage smoking DC to home, keep F/U apptmt. Status: Acute Code(s): O09.899 - Supervision of other high risk pregnancies, unspecified trimester Coding Level of Care Code Acute Code for Chg Fwd Diagnoses Supervision of other high-risk O09.899
== END 2022-05-18 21:25 | disposition home or self-care (01) ==
LOC: OPOB 18:15 → OBGYN 18:16
PROVIDERS: PCP Family Medicine; Visit Provider Obstetrics & Gynecology
DX: O16.9 Unspecified maternal hypertension, unspecified trimester (principal); Z3A.00 Weeks of gestation of pregnancy not specified
CPT/HCPCS: 12345; 81001; 82570; 84156; 99211; J0690; J7120

== ENCOUNTER → 2022-06-11 12:33 | Outpatient (BNVA) | payer BC, MEDICAID, SELFPAY | PROVIDERS: PCP Family Medicine; Visit Provider Obstetrics & Gynecology | DX: O09.90 Supervision of high risk pregnancy, unspecified, unspecified trimester (principal) | CPT/HCPCS: 81000; 82950 ==

== ENCOUNTER → 2022-07-06 08:15 | Outpatient (BNVA) | payer BC, MEDICAID, SELFPAY | PROVIDERS: PCP Family Medicine; Visit Provider Obstetrics & Gynecology | DX: O09.899 Supervision of other high risk pregnancies, unspecified trimester (principal); Z3A.00 Weeks of gestation of pregnancy not specified | CPT/HCPCS: 81000; 85025 ==

== ENCOUNTER → 2022-07-20 08:40 | Outpatient (BNVA) | payer BC, MEDICAID, SELFPAY | PROVIDERS: PCP Family Medicine; Visit Provider Obstetrics & Gynecology | DX: O09.899 Supervision of other high risk pregnancies, unspecified trimester (principal); R80.9 Proteinuria, unspecified; O16.9 Unspecified maternal hypertension, unspecified trimester; O34.219 Maternal care for unspecified type scar from previous cesarean delivery; O09.291 Supervision of pregnancy with other poor reproductive or obstetric history, first trimester; O99.210 Obesity complicating pregnancy, unspecified trimester; Z3A.00 Weeks of gestation of pregnancy not specified | CPT/HCPCS: 81000 ==

== ENCOUNTER 2022-07-31 19:22 | Outpatient (CLI) | payer BC, MEDICAID, SELFPAY ==
[2022-07-31] VITALS (7 sets, daily range): BP systolic 119–132; BP diastolic 57–61; PULSE 96–107; RESP 16–18; BMI 37.0
[2022-07-31 20:02] LABS: Nitrazine Paper, PH Negative
[2022-07-31 20:03] LABS: Bilirubin Urine Neg (Negative); Blood Urine Neg (Negative); Glucose Urine UA Norm (Normal); Ketones Urine Negative (Negative); Leukocyte Esterase Urine Negative (Negative); Nitrate Urine Negative (Negative); Protein Urine Neg (Negative); Urine Appearance Clear (CLEAR); Urine Color Yellow (Yellow); Urobilinogen Urine Neg (Negative); pH Urine 6 (5-7)
[2022-07-31 20:13] LABS: Add Urine Culture? No; Amorphous Sediment Urine 2+ /hpf; Bacteria Urine 1+ /hpf; Mucus Urine 2+ /hpf; Squamous Epithelial Cell Urine 0-4 /hpf (0-5)
== END 2022-07-31 20:40 | disposition home or self-care (01) ==
LOC: OPOB 19:22 → OBGYN 19:23
PROVIDERS: PCP Family Medicine; Visit Provider Obstetrics & Gynecology
DX: O47.9 False labor, unspecified (principal); O26.899 Other specified pregnancy related conditions, unspecified trimester; N89.8 Other specified noninflammatory disorders of vagina; Z3A.00 Weeks of gestation of pregnancy not specified
CPT/HCPCS: 59025; 81001; 83986; 99211

== ENCOUNTER → 2022-08-01 08:11 | Outpatient (BNVA) | payer BC, MEDICAID, SELFPAY | PROVIDERS: PCP Family Medicine; Visit Provider Obstetrics & Gynecology | DX: O09.91 Supervision of high risk pregnancy, unspecified, first trimester (principal) | CPT/HCPCS: 81000 ==

== ENCOUNTER 2022-08-04 13:20 | Emergency (ER) | payer BC, MEDICAID, SELFPAY ==
[2022-08-04 13:21] VITALS: BP 165/90; PULSE 120; RESP 17; TEMP 36.9; O2SAT 97; BMI 36.6
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
--- NOTE | 2022-08-04 13:31 | ECG_ITS ---
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 Measurements Intervals [place] Rate: 101 P: 25 [place]: 128 QRS: 20 QRSD: 94 T: -3 QT: 349 QTc: 452 Interpretive Statements SINUS TACHYCARDIA ABNORMAL RHYTHM ECG Compared to ECG 05/06/2022 02:20:43 Sinus rhythm no longer present Electronically Signed On 08-04-2022 19:23:25 CDT by Rick Archer M.D. [id number]
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
[2022-08-04 13:41] LABS: Basophils % 0.3 %; Eosinophils # 0.1 10^3/uL (0.0-0.8); Eosinophils % 0.6 %; Hematocrit 37.4 % (37.0-47.0); Hemoglobin 11.8 g/dL (11.5-15.3); Lymphocytes # 2.3 10^3/uL (0.8-4.8); Lymphocytes % 18.4 %; Mean Corpuscular HGB Conc 31.6 g/dL (30.0-36.0); Mean Corpuscular Hemoglobin 28.2 pg (28.0-34.0); Mean Corpuscular Volume 89.3 fl (81-99); Mean Platelet Volume 12.3 fL (7.4-10.4); Monocytes % 7.6 %; Neutrophils # 9.14 10^3/uL (1.8-7.7); Neutrophils % 72.4 %; Nucleated Red Blood Cells % 0 %; Platelet Count 189 10^3/cmm (130-400); Red Blood Count 4.19 10^6/uL (4.1-5.3); Red Cell Distribution Width 15.5 % (12.1-15.1); White Blood Count 12.6 10^3/uL (4.0-10.0)
[2022-08-04] MEDS: sodium chloride 0.9% 1,000 ML 999 ML IV (13:57)
[2022-08-04] MEDS: ondansetron 2 mg/ML SDV 2 mL 4 MG IVP (13:58)
[2022-08-04 13:59] LABS: Alanine Aminotransferase 11 U/L (0-33); Albumin Level 3.7 g/dL (3.5-5.2); Alkaline Phosphatase 141 U/L (35-105); Aspartate Amino Transferase 13 U/L (0-32); Blood Urea Nitrogen 13 mg/dL (6-20); Calcium 8.7 mg/dL (8.5-10.5); Carbon Dioxide 20 mmol/L (22-29); Chloride 101 mmol/L (98-107); Globulin 3.3 g/dL (1.3-4.6); Glomerular Filtration Rate 151.6 mL/min (90-130); Glucose 82 mg/dL (65-115); Osmolality Calculated 281 mOsm/kg (285-295); Sodium 136 mmol/L (136-145); Total Bilirubin 0.2 mg/dL (0.15-1.2)
[2022-08-04 14:01] LABS: Alcohol Level < 10 mg/dL (0-10); Anion Gap 18.8 (5-19); Potassium 3.8 mmol/L (3.5-5.1)
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
[2022-08-04 15:35] LABS: Add Urine Microscopic? YES; Bilirubin Urine Neg (Negative); Blood Urine Neg (Negative); Glucose Urine UA Norm (Normal); Ketones Urine 1+ (Negative); Leukocyte Esterase Urine Negative (Negative); Nitrate Urine Negative (Negative); Protein Urine Trace (Negative); Urine Appearance Clear (CLEAR); Urine Color Dark Yellow (Yellow); Urobilinogen Urine Norm (Negative); pH Urine 6 (5-7)
[2022-08-04 15:42] LABS: Amphetamines Screen Urine Negative (Negative); Barbiturates Screen Urine Negative (Negative); Benzodiazepines Screen Urine Negative (Negative); Cocaine Screen Urine Negative (Negative); Opiate Screen Urine Negative (Negative); PCP Screen Urine Negative (Negative); THC Screen Urine Negative (Negative)
[2022-08-04 15:54] LABS: Add Urine Culture? No; Bacteria Urine 2+ /hpf; Mucus Urine 1+ /hpf
== END 2022-08-04 16:18 | disposition home or self-care (01) ==
PROVIDERS: Emergency Provider Emergency Medicine; PCP Family Medicine
DX: O9A.213 Injury, poisoning and certain other consequences of external causes complicating pregnancy, third trimester (principal); S00.83XA Contusion of other part of head, initial encounter; S09.8XXA Other specified injuries of head, initial encounter; Z87.891 Personal history of nicotine dependence; O14.93 Unspecified pre-eclampsia, third trimester; Z3A.33 33 weeks gestation of pregnancy; V89.2XXA Person injured in unspecified motor-vehicle accident, traffic, initial encounter
CPT/HCPCS: 70450; 71045; 72125; 76815; 80053; 80306; 80307; 81001; 85025; 86900; 93005; 96361; 96374; 99285; J2405; J7030

== ENCOUNTER 2022-08-04 16:10 | Outpatient (CLI) | payer BC, MEDICAID, SELFPAY ==
[2022-08-04 16:35] VITALS: BP 121/55; PULSE 87
[2022-08-04 16:53] VITALS: BP 130/62; PULSE 78
[2022-08-04 17:04] VITALS: RESP 17; TEMP 36.4
[2022-08-04 17:17] VITALS: BP 130/62; PULSE 78; RESP 17; TEMP 36.4
== END 2022-08-04 17:17 | disposition home or self-care (01) ==
LOC: OPOB 16:15 → OBGYN 16:16
PROVIDERS: PCP Family Medicine; Visit Provider Obstetrics & Gynecology
DX: Z04.1 Encounter for examination and observation following transport accident (principal); Z3A.00 Weeks of gestation of pregnancy not specified
CPT/HCPCS: 59025; 99211

== ENCOUNTER 2022-08-05 16:26 | Outpatient (CLI) | payer BC, MEDICAID, SELFPAY ==
[2022-08-05] VITALS (10 sets, daily range): BP systolic 119–142; BP diastolic 56–77; PULSE 86–101; RESP 16; TEMP 36.2–37.7; BMI 37.4
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
[2022-08-05] MEDS: ondansetron 2 mg/ML SDV 2 mL 4 MG IVP (18:17)
[2022-08-05] MEDS: lactated ringers 1,000 ML 999 ML IV (18:20)
[2022-08-05] MEDS: NIFEdipine 10 mg Capsule PO (18:21)
[2022-08-05] MEDS: iohexol 350 mg/mL 500 mL Btl (per mL) IV (18:43)
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
[2022-08-05] MEDS: acetaminophen 325 mg Tablet 650 MG PO (22:55)
[2022-08-06 02:23] VITALS: BP 127/59; PULSE 81
[2022-08-06 06:30] VITALS: BP 127/59; PULSE 69; TEMP 36
[2022-08-06 08:24] VITALS: TEMP 36.2
[2022-08-06 08:25] VITALS: BP 121/57; PULSE 82
[2022-08-06 09:25] VITALS: BP 121/57; PULSE 82; RESP 16; TEMP 36.4
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
== END 2022-08-06 16:26 | disposition home or self-care (01) ==
LOC: OPOB 16:31 → OBGYN 08-06 09:11
PROVIDERS: PCP Family Medicine; Visit Provider Obstetrics & Gynecology
DX: O47.9 False labor, unspecified (principal); O26.899 Other specified pregnancy related conditions, unspecified trimester; R11.10 Vomiting, unspecified; Z3A.32 32 weeks gestation of pregnancy; S00.83XA Contusion of other part of head, initial encounter; V89.2XXA Person injured in unspecified motor-vehicle accident, traffic, initial encounter
CPT/HCPCS: 59025; 70470; 99211; J2405; J7120; Q9967

== ENCOUNTER → 2022-08-08 08:19 | Outpatient (BNVA) | payer BC, MEDICAID, SELFPAY | PROVIDERS: PCP Family Medicine; Visit Provider Obstetrics & Gynecology | DX: O09.899 Supervision of other high risk pregnancies, unspecified trimester (principal); Z3A.00 Weeks of gestation of pregnancy not specified | CPT/HCPCS: 82951; 82952 ==

== ENCOUNTER → 2022-08-14 11:22 | Outpatient (BNVA) | payer BC, MEDICAID, SELFPAY | PROVIDERS: PCP Family Medicine; Visit Provider Nurse Practitioner Women's Health | DX: Z34.93 Encounter for supervision of normal pregnancy, unspecified, third trimester (principal); Z3A.34 34 weeks gestation of pregnancy | CPT/HCPCS: 76816; 76819 ==

== ENCOUNTER → 2022-08-16 15:07 | Outpatient (BNVA) | payer BC, MEDICAID, SELFPAY | PROVIDERS: PCP Family Medicine; Visit Provider Obstetrics & Gynecology | DX: O09.899 Supervision of other high risk pregnancies, unspecified trimester (principal); Z3A.00 Weeks of gestation of pregnancy not specified | CPT/HCPCS: 81000 ==

== ENCOUNTER → 2022-08-21 10:27 | Outpatient (BNVA) | payer BC, MEDICAID, SELFPAY | PROVIDERS: PCP Family Medicine; Visit Provider Nurse Practitioner Women's Health | DX: Z34.90 Encounter for supervision of normal pregnancy, unspecified, unspecified trimester (principal); Z3A.00 Weeks of gestation of pregnancy not specified | CPT/HCPCS: 76819 ==

== ENCOUNTER 2022-08-21 11:00 | Outpatient (CLI) | payer BC, MEDICAID, SELFPAY ==
[2022-08-21 12:14] LABS: Total Volume, Urine 900 mL
[2022-08-21 12:20] LABS: Urine Total Protein 8.8 mg/dL (0-150); Urine Total Protein 24 Hour 8.8 mg/24hr (0-150)
== END 2022-08-21 11:01 | disposition home or self-care (01) ==
LOC: LAB 11:04
PROVIDERS: PCP Family Medicine; Visit Provider Obstetrics & Gynecology
DX: O09.899 Supervision of other high risk pregnancies, unspecified trimester (principal)
CPT/HCPCS: 84156

== ENCOUNTER → 2022-08-24 08:58 | Outpatient (BNVA) | payer BC, MEDICAID, SELFPAY | PROVIDERS: PCP Family Medicine; Visit Provider Obstetrics & Gynecology | DX: O09.899 Supervision of other high risk pregnancies, unspecified trimester (principal); Z3A.00 Weeks of gestation of pregnancy not specified | CPT/HCPCS: 81000 ==

== ENCOUNTER → 2022-08-28 08:43 | Outpatient (BNVA) | payer BC, MEDICAID, SELFPAY | PROVIDERS: PCP Family Medicine; Visit Provider Obstetrics & Gynecology | DX: Z34.90 Encounter for supervision of normal pregnancy, unspecified, unspecified trimester (principal); Z3A.00 Weeks of gestation of pregnancy not specified | CPT/HCPCS: 76819 ==

== ENCOUNTER → 2022-08-31 10:00 | Outpatient (BNVA) | payer BC, MEDICAID, SELFPAY | PROVIDERS: PCP Family Medicine; Visit Provider Obstetrics & Gynecology | DX: O09.899 Supervision of other high risk pregnancies, unspecified trimester (principal); Z3A.00 Weeks of gestation of pregnancy not specified | CPT/HCPCS: 81000; 87081 ==

== ENCOUNTER 2022-09-04 08:02 | Outpatient (CLI) | payer BC, MEDICAID, SELFPAY ==
[2022-09-04 08:02] VITALS: BMI 36.3
[2022-09-04 08:20] VITALS: BP 128/68; PULSE 101
[2022-09-04 08:35] VITALS: BP 121/66; PULSE 93
== END 2022-09-04 08:45 | disposition home or self-care (01) ==
LOC: OPOB 08:07 → OBGYN 08:07
PROVIDERS: PCP Family Medicine; Visit Provider Obstetrics & Gynecology
DX: O24.419 Gestational diabetes mellitus in pregnancy, unspecified control (principal); O16.9 Unspecified maternal hypertension, unspecified trimester; Z3A.00 Weeks of gestation of pregnancy not specified
CPT/HCPCS: 59025

== ENCOUNTER 2022-09-05 10:28 | Outpatient (CLI) | payer BC, MEDICAID, SELFPAY ==
--- NOTE | 2022-09-05 11:00 | US_ITS ---
WS: [id number] ULTRASOUND OB LIMITED TECHNIQUE: Limited ultrasound examination of the fetus. CLINICAL INFORMATION: O24.419 - Gestational diabetes mellitus in , uns... COMPARISON: August 28, 2022 FINDINGS: Cervix measures 3.1 cm Single interuterine gestation. presentation is vertex Placental location is fundal. Placenta grade: 2 heart rate 150 BPM. Single deep vertical pocket measuring 4.1 cm Biophysical profile 8 out of 8. breathin movement: 2 tone: 2 Amniotic fluid: 2 US/US OB BPP wo NST [id number] IMPRESSION: Normal biophysical profile 8 out of 8
== END 2022-09-05 10:29 | disposition home or self-care (01) ==
LOC: RAD 10:32
PROVIDERS: PCP Family Medicine; Visit Provider Obstetrics & Gynecology
DX: O09.899 Supervision of other high risk pregnancies, unspecified trimester (principal); O24.419 Gestational diabetes mellitus in pregnancy, unspecified control; Z3A.00 Weeks of gestation of pregnancy not specified
CPT/HCPCS: 76819

== ENCOUNTER 2022-09-07 09:37 | Outpatient (CLI) | payer BC, MEDICAID, SELFPAY ==
[2022-09-07 09:37] VITALS: BMI 36.2
[2022-09-07 09:54] VITALS: BP 131/66; PULSE 90
[2022-09-07 10:10] VITALS: BP 114/59; PULSE 83
[2022-09-07 10:24] VITALS: BP 115/55; PULSE 88
== END 2022-09-07 10:29 | disposition home or self-care (01) ==
LOC: OPOB 09:46 → OBGYN 09:46
PROVIDERS: PCP Family Medicine; Visit Provider Obstetrics & Gynecology
DX: O24.419 Gestational diabetes mellitus in pregnancy, unspecified control (principal); O16.9 Unspecified maternal hypertension, unspecified trimester; Z3A.00 Weeks of gestation of pregnancy not specified
CPT/HCPCS: 59025; 81000; 99211

== ENCOUNTER 2022-09-11 09:30 | Outpatient (CLI) | payer BC, MEDICAID, SELFPAY ==
[2022-09-11 09:30] VITALS: BMI 36.6
[2022-09-11 09:44] VITALS: BP 137/64; PULSE 97
[2022-09-11 10:04] VITALS: BP 120/58; PULSE 83
[2022-09-11 10:26] VITALS: BP 120/58; PULSE 83
== END 2022-09-11 10:15 | disposition home or self-care (01) ==
LOC: OPOB 09:31 → OBGYN 09:32
PROVIDERS: PCP Family Medicine; Visit Provider Obstetrics & Gynecology
DX: O16.9 Unspecified maternal hypertension, unspecified trimester (principal); O24.419 Gestational diabetes mellitus in pregnancy, unspecified control; Z3A.00 Weeks of gestation of pregnancy not specified
CPT/HCPCS: 59025; 76815; 76819; 99211

== ENCOUNTER 2022-09-14 09:19 | Outpatient (CLI) | payer BC, MEDICAID, SELFPAY ==
[2022-09-14 09:20] VITALS: BMI 36.2
[2022-09-14 09:29] VITALS: BP 127/65; PULSE 107
[2022-09-14 09:44] VITALS: BP 122/68; PULSE 100
== END 2022-09-14 09:50 | disposition home or self-care (01) ==
LOC: OPOB 09:26 → OBGYN 09:27
PROVIDERS: PCP Family Medicine; Visit Provider Obstetrics & Gynecology
DX: O24.419 Gestational diabetes mellitus in pregnancy, unspecified control (principal); O09.899 Supervision of other high risk pregnancies, unspecified trimester; Z3A.38 38 weeks gestation of pregnancy
CPT/HCPCS: 59025; 81000

== ENCOUNTER 2022-09-15 15:40 | Outpatient (CLI) | payer BC, MEDICAID, SELFPAY ==
[2022-09-15 15:40] VITALS: BMI 36.0
[2022-09-15 15:46] VITALS: BP 136/64; PULSE 112
[2022-09-15 16:07] VITALS: BP 125/68; PULSE 98
[2022-09-15 16:25] LABS: Bilirubin Urine 1+ (Negative); Blood Urine Neg (Negative); Glucose Urine UA Norm (Normal); Ketones Urine 1+ (Negative); Nitrate Urine Negative (Negative); Protein Urine Neg (Negative); Urine Appearance SL Hazy (CLEAR); Urine Color Dark Yellow (Yellow); pH Urine 6 (5-7)
[2022-09-15 16:26] VITALS: BP 130/68; PULSE 98
[2022-09-15 16:26] LABS: Add Urine Culture? No; Bacteria Urine 2+ /hpf; Leukocyte Esterase Urine Negative (Negative); Urobilinogen Urine 1 mg/dL (Negative)
[2022-09-15 16:46] VITALS: BP 130/64; PULSE 100
[2022-09-15 17:06] VITALS: BP 133/64; PULSE 102
[2022-09-15 17:41] VITALS: BP 133/64; PULSE 102
== END 2022-09-15 18:20 | disposition home or self-care (01) ==
LOC: OPOB 15:41 → OBGYN 15:42
PROVIDERS: PCP Family Medicine; Visit Provider Obstetrics & Gynecology
DX: O47.1 False labor at or after 37 completed weeks of gestation (principal); Z3A.38 38 weeks gestation of pregnancy
CPT/HCPCS: 59025; 81001; 99211

== ENCOUNTER → 2022-09-18 08:49 | Outpatient (BNVA) | payer BC, MEDICAID, SELFPAY | PROVIDERS: PCP Family Medicine; Visit Provider Obstetrics & Gynecology | DX: O09.899 Supervision of other high risk pregnancies, unspecified trimester (principal); Z3A.00 Weeks of gestation of pregnancy not specified | CPT/HCPCS: 76819 ==

== ENCOUNTER 2022-09-18 09:25 | Outpatient (CLI) | payer BC, MEDICAID, SELFPAY ==
[2022-09-18 09:32] VITALS: RESP 17
[2022-09-18 09:33] VITALS: BMI 36.6
[2022-09-18 09:38] VITALS: BP 116/55; PULSE 90; TEMP 35.8
[2022-09-18 10:04] VITALS: BP 118/75; PULSE 93
[2022-09-18 10:10] VITALS: BP 118/75; PULSE 93
== END 2022-09-18 10:10 | disposition home or self-care (01) ==
LOC: OPOB 09:28 → OBGYN 09:29
PROVIDERS: PCP Family Medicine; Visit Provider Obstetrics & Gynecology
DX: O47.1 False labor at or after 37 completed weeks of gestation (principal); Z3A.38 38 weeks gestation of pregnancy
CPT/HCPCS: 59025; 99211

== ENCOUNTER 2022-09-21 09:15 | Outpatient (CLI) | payer BC, MEDICAID, SELFPAY ==
[2022-09-21 09:21] VITALS: BP 129/83; PULSE 106
[2022-09-21 09:23] VITALS: BMI 36.0
[2022-09-21 09:37] VITALS: BP 130/60; PULSE 93
[2022-09-21 09:51] VITALS: BP 130/60; PULSE 93
== END 2022-09-21 09:54 | disposition home or self-care (01) ==
LOC: OPOB 09:16 → OBGYN 09:17
PROVIDERS: PCP Family Medicine; Visit Provider Obstetrics & Gynecology
DX: O24.419 Gestational diabetes mellitus in pregnancy, unspecified control (principal); Z3A.00 Weeks of gestation of pregnancy not specified
CPT/HCPCS: 59025; 81000

== ENCOUNTER 2022-09-26 05:16 | Inpatient (IN) | payer BC, MEDICAID, SELFPAY ==
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
[2022-09-26] VITALS (25 sets, daily range): BP systolic 100–132; BP diastolic 41–80; PULSE 54–81; RESP 15–18; TEMP 36.4–36.9; O2SAT 93–99
[2022-09-26 05:57] LABS: Basophils % 0.2 %; Eosinophils # 0.1 10^3/uL (0.0-0.8); Eosinophils % 0.6 %; Hemoglobin 11.6 g/dL (11.5-15.3); Lymphocytes # 2.3 10^3/uL (0.8-4.8); Lymphocytes % 17.5 %; Mean Corpuscular HGB Conc 31.4 g/dL (30.0-36.0); Mean Corpuscular Hemoglobin 28.4 pg (28.0-34.0); Mean Corpuscular Volume 90.5 fl (81-99); Mean Platelet Volume 11.9 fL (7.4-10.4); Monocytes # 0.8 10^3/uL (0.2-0.9); Monocytes % 6.2 %; Neutrophils # 9.87 10^3/uL (1.8-7.7); Nucleated Red Blood Cells % 0 %; Platelet Count 178 10^3/cmm (130-400); Red Blood Count 4.09 10^6/uL (4.1-5.3); Red Cell Distribution Width 15.8 % (12.1-15.1); White Blood Count 13.2 10^3/uL (4.0-10.0)
[2022-09-26] MEDS: lactated ringers 1,000 ML 999 ML IV (06:08)
[2022-09-26] MEDS: famotidine 20 mg/2 mL INJ IVP (06:45)
[2022-09-26] MEDS: citric acid-sodium citrate 30 mL UDC PO (06:45)
[2022-09-26] MEDS: metoclopramide 5 mg/mL SDV 2 mL 10 MG IVP (06:45)
[2022-09-26] MEDS: ceFAZolin 2,000 MG in sodium chloride 0.9% (plus) 50 ML 100 MG IV (06:48)
--- NOTE | 2022-09-26 06:50 | P.ANESUD_ITS ---
Pre-Anesthetic Update Pre-Anesthetic Assessment: Date of Surgery/Procedure: 09/26/22 Preop Kelsie gnosis: repeat C/S Proposed Procedure: Operation Date: 09/26/22 07:00 Proposed Procedures p Section Repeat(Not Applicable) - Kody Gonzalez MD Any changes to Pre-Anesthetic Assessment?: No Labs Last 48hrs: Short CBC 09/26/22 Range/Units 05:45 WBC 13.2 H (4.0-10.0) 10^3/ uL Hgb 11.6 (11.5-15.3) g/dL Hct 37.0 (37.0-47.0) % MCV 90.5 (81-99) fl Plt Count 178 (130-400) 10^3/c mm Neut % (Auto) 75.0 % Neut # (Auto) 9.87 H (1.8-7.7) 10^3/u L Blood Bank 09/26/22 05:45 Blood Type O Positive Rho(D) Type Positive Vitals: Pulse Rate 81 09/26/22 06:19 Pulse Rhythm Regular 09/26/22 05:51 Pulse Strength 3+ Normal 09/26/22 05:51 Respiratory Rate 16 09/26/22 05:35 Respiratory Effort Spontaneous, Non- Labored 09/26/22 05:51 Respiratory Depth Normal 09/26/22 05:51 Respiratory Patter n Normal 09/26/22 05:51 Blood Pressure 116/63 09/26/22 06:19 Oxygen Delivery Me thod Room Air 09/26/22 05:51 Exam: Pre-Anes Outpt Exam: alert and oriented x 3 Cardiac Studies: No Data to Display
--- NOTE | 2022-09-26 08:28 | PM.OP ---
Operative Report Date of procedure: September 26, 2022 Pre-op diagnosis: Preop Diagnosis repeat C/S Post-op diagnosis: Term . Previous delivery. Procedure done: Repeat low-transverse delivery Surgeon: Kody Gonzalez MD Estimated blood loss (mL): 500 IV fluids (mL): 2,300 Urine output (mL): 100 Complications: None Procedure: After assuring informed consent, the patient was taken to the operating room and anesthesia was initiated. She was placed in the dorsal supine position with a left lateral tilt. The abdomen was prepped and draped in the usual sterile manner. A time-out procedure was performed. Preop antibiotics was administered. A Pfannenstiel skin incision was made with the scalpel and carried through to the underlying layer of fascia with the Bovie. The fascia was nicked in the midline and the incision extended laterally with the Boyer scissors. The superior aspect of the fascial incision was then grasped with Malcolm clamps and elevated and the underlying rectus muscle dissected off bluntly and sharp with boyer scissors dense adhesions. Attention was then turned to the inferior aspect of the incision which, in similar fashion, was grasped and tented up with Malcolm clamps and the rectus muscle dissected bluntly. The rectus muscles were then in the midline and the peritoneum identified, tented up and entered sharply with Metzenbaum scissors. The peritoneal incision was then extended superiorly and inferiorly with good visualization of the bladder. The Darren O retractor was then inserted and the vesicouterine peritoneum identified, grasped with pickups and entered sharply with Metzenbaum scissors. This incision was then extended laterally and the bladder flap created digitally. The uterus incised in a low transverse fashion with the scalpel. The uterine incision was then extended with the bandage scissors. The was then delivered in the cephalic presentation atraumatically vacuum-assisted. The nose and the mouth were suctioned with bulb and the cord clamped and cut. The cord was normal and had three vessels. Amniotic fluid was clear. The placenta was then removed manually and the uterus exteriorized and cleared of all clots and debris. The uterine incision was repaired with 0 Vicryl in a running-locked fashion. A second layer of the same suture was used to obtain excellent hemostasis. The gutters were cleared of all clots. The uterus was then returned to the abdomen. The rectus muscles were approximated with 3-0 chromic gut. The ON-Q pain management system placed. The fascia was reapproximated with 0 Vicryl in an interrupted running fashion. The skin was closed with Insorb?s subcuticular absorbable robyn. The patient tolerated the procedure well. The sponge, lap and needle counts were correct times three.
[2022-09-26] MEDS: hyDROXYzine 25 mg Capsule 50 MG PO (09:34)
[2022-09-26] MEDS: dextrose 5%-lactated ringers 1,000 ML 125 ML IV (12:19)
[2022-09-26] MEDS: ketorolac 30 mg/mL INJ IVP ×2 (14:21→20:54)
--- NOTE | 2022-09-26 14:48 | PC.NURSE ---
Pt assisted to side of bed to dangle her legs. Pt did so wth standby assistance. Pt stood up at bedside and david care was performed and david pad changed. Pt ambulated to chair. Pt tolerated well
--- NOTE | 2022-09-26 14:58 | PC.NURSE ---
Pt ambulated one lap around unit. Pt tolerated well and reported improvement in pain with ambulating
--- NOTE | 2022-09-26 16:32 | ANE.PACU2 ---
Inpatient post-anesthesia follow up: Airway intact: Yes Vital signs: Temperature 98.4 F Pulse Rate 68 Respiratory Rate 16 Blood Pressure 109/67 Pulse Oximetry 99 Oxygen Delivery Me thod Room Air Oxygen Flow Rate Fraction of Inspir ed Oxygen Hydration adequate: Yes Nausea and vomiting: No Pain level: 2 Mental status: Baseline
[2022-09-26] MEDS: docusate sodium 100 mg Capsule PO (17:35)
[2022-09-26] MEDS: ferrous sulfate EC 325 mg Tablet PO (17:35)
[2022-09-26] MEDS: simethicone 80 mg Chew PO (20:53)
[2022-09-26] MEDS: lanolin oint 7 gm 1 APPLIC TOPICAL (20:54)
[2022-09-26] MEDS: diphenhydrAMINE 50 mg/mL SDV 1mL 25 MG IVP (21:58)
[2022-09-26 22:00] LABS: Hematocrit 31.4 % (37.0-47.0); Hemoglobin 9.8 g/dL (11.5-15.3); Mean Corpuscular HGB Conc 31.2 g/dL (30.0-36.0); Mean Corpuscular Hemoglobin 28.8 pg (28.0-34.0); Mean Corpuscular Volume 92.4 fl (81-99); Mean Platelet Volume 12.3 fL (7.4-10.4); Platelet Count 147 10^3/cmm (130-400); Red Cell Distribution Width 15.9 % (12.1-15.1)
[2022-09-27] MEDS: ketorolac 30 mg/mL INJ IVP (03:55)
[2022-09-27 05:00] VITALS: BP 110/55; PULSE 94; RESP 18; TEMP 37.1; O2SAT 98
[2022-09-27] MEDS: simethicone 80 mg Chew PO (05:41)
[2022-09-27] MEDS: prenatal vitamin Capsule 1 CAP PO (08:59)
[2022-09-27] MEDS: docusate sodium 100 mg Capsule PO ×2 (08:59→19:19)
[2022-09-27] MEDS: famotidine 20 mg Tablet PO ×2 (08:59→19:19)
[2022-09-27] MEDS: ferrous sulfate EC 325 mg Tablet PO ×2 (08:59→19:19)
--- NOTE | 2022-09-27 09:03 | PM.PN ---
Subjective Subjective: Ms. Morales is a 22 year old established patient with LMP of 01/19/2022, BELLA 09/26/2022, s/p repeat delivery. Vitals/I&O/Wt Last Vital Signs Temp 98.5 F 09/28/22 04:00 Pulse 73 09/28/22 04:00 Resp 16 09/28/22 04:00 BP 123/59 09/28/22 04:00 Pulse Ox 98 09/28/22 04:00 O2 Del Method Room Air 09/28/22 04:00 Physical Exam Narrative: GA; alert and oriented x 3 HEENT: normal Breasts: engorged Nipples - skin intact Lungs; clear to auscultation Heart: regular rhythm, no murmurs. Abd: Appropriately tender. BS+. Uterine fundus below umbilicus. No Fundal Tenderness, minimal tenderness, incision clean and dry, no redness, pain or edema. Perineum: normal lochia. Extremities: no edema, no cyanosis, no tenderness. Urinary Catheter Management: Michelle: Cath Placed During This Visit: yes, but has since been removed by the nurse Reason for Continuing Indwelling Catheter: Decision to DC Catheter Urinary Catheter Date of Insertion: 09/26/22 Urinary Catheter Time of Insertion: 07:10 Date Urinary Catheter Removed: 09/26/22 Time Urinary Catheter Discontinued: 16:30 Data 09/26/22 21:15 A&P Assessment and plan (1) Status post delivery: Ms. Morales is a 22 year old status post repeat delivery,. Operative day 1, she is afebrile hemodynamically stable. Tolerating diet well. Ambulating without difficulty. Passing flatus. Attestations Medical Necessity Statement*: In my professional opinion poor admitting diagnosis Coding Level of Care Code Acute Code for Chg Fwd Diagnoses Status post delivery Z98.891
[2022-09-27] MEDS: acetaminophen 325 mg Tablet 650 MG PO (10:14)
[2022-09-27] MEDS: labetalol 200 mg Tablet 100 MG PO ×2 (10:50→19:19)
[2022-09-27] MEDS: HYDROcodone-acetaminophen 5-325 mg Tablet PO (13:25)
[2022-09-27 16:12] VITALS: BP 123/61; PULSE 88; RESP 14; TEMP 36.9; O2SAT 98
[2022-09-27] MEDS: ibuprofen 800 mg tablet PO (19:18)
[2022-09-27 22:00] VITALS: BP 114/64; PULSE 95; RESP 16; TEMP 36.6; O2SAT 99
[2022-09-28] MEDS: acetaminophen 325 mg Tablet 650 MG PO (00:13)
[2022-09-28] MEDS: HYDROcodone-acetaminophen 5-325 mg Tablet PO (02:36)
[2022-09-28 04:00] VITALS: BP 123/59; PULSE 73; RESP 16; TEMP 36.9; O2SAT 98
--- NOTE | 2022-09-28 09:09 | PM.OBGYDC ---
Discharge Providers UTILIZATION MANAGEMENT MANAGER Date of Admission: 09/26/22 05:16 Date of Discharge: 09/28/22 Attending Provider at Admission: Kody Gonzalez MD Attending Provider at Discharge: Kody Gonzalez MD Primary UTILIZATION MANAGEMENT MANAGER: Kody Gonzalez MD Primary Care Provider: Brenden Mejia MD Diagnoses at Discharge Discharge Diagnosis (1) Status post delivery: Status: Acute Reason for Visit Reason for Visit: C Section Hospital Course Hospital Course Ms. Morales is a 22 year old with an estimated stational age of 40 weeks came for a repeat delivery. delivery was performed without complications. Postop observation was uneventful. She is afebrile hemodynamically stable postoperative day 2. Tolerating diet well. Had a bowel movement. Ambulating without difficulty. She was counseled regarding pelvic rest for 6 weeks (no sex, no tampons, no vaginal douches). Return to the emergency room if any fever, increased bleeding or pain. Information Peripartum Data: Delivery Method: Physical Exam Narrative: GA; alert and oriented x 3 HEENT: normal Breasts: engorged Nipples - skin intact Lungs; clear to auscultation Heart: regular rhythm, no murmurs. Abd: Appropriately tender. BS+. Uterine fundus below umbilicus. No Fundal Tenderness, minimal tenderness, incision clean and dry, no redness, pain or edema. Perineum: normal lochia. Extremities: no edema, no cyanosis, no tenderness. Urinary Catheter Management: Michelle: Cath Placed During This Visit: yes, but has since been removed by the nurse Reason for Continuing Indwelling Catheter: Decision to DC Catheter Urinary Catheter Date of Insertion: 09/26/22 Urinary Catheter Time of Insertion: 07:10 Date Urinary Catheter Removed: 09/26/22 Time Urinary Catheter Discontinued: 16:30 History History History 3 Term 1 1 Miscarriages/Ectopic 0 Living Children 3 Discharge Data Studies Completed and Pending Laboratory Results WBC 10.0 10^3/uL (4.0-10.0) 09/26/22 21:15 RBC 3.40 10^6/uL (4.1-5.3) L 09/26/22 21:15 Hgb 9.8 g/dL (11.5-15.3) L 09/26/22 21:15 Hct 31.4 % (37.0-47.0) L 09/26/22 21:15 MCV 92.4 fl (81-99) 09/26/22 21:15 MCH 28.8 pg (28.0-34.0) 09/26/22 21:15 MCHC 31.2 g/dL (30.0-36.0) 09/26/22 21:15 RDW 15.9 % (12.1-15.1) H 09/26/22 21:15 Plt Count 147 10^3/cmm (130-400) 09/26/22 21:15 MPV 12.3 fL (7.4-10.4) H 09/26/22 21:15 Neut % (Auto) 75.0 % 09/26/22 05:45 Lymph % (Auto) 17.5 % 09/26/22 05:45 Faulk % (Auto) 6.2 % 09/26/22 05:45 Eos % (Auto) 0.6 % 09/26/22 05:45 Baso % (Auto) 0.2 % 09/26/22 05:45 Neut # (Auto) 9.87 10^3/uL (1.8-7.7) H 09/26/22 05:45 Lymph # (Auto) 2.3 10^3/uL (0.8-4.8) 09/26/22 05:45 Faulk # (Auto) 0.8 10^3/uL (0.2-0.9) 09/26/22 05:45 Eos # (Auto) 0.1 10^3/uL (0.0-0.8) 09/26/22 05:45 Baso # (Auto) 0.0 10^3/uL (0.0-0.1) 09/26/22 05:45 Nucleated RBC % (auto) 0 % 09/26/22 05:45 Nucleated RBCs # 0.0 /100WBC 09/26/22 05:45 Blood Type O Positive 09/26/22 05:45 Rho(D) Type Positive 09/26/22 05:45 Vitals Last Vital Signs Temp 98.5 F 09/28/22 04:00 Pulse 73 09/28/22 04:00 Resp 16 09/28/22 04:00 BP 123/59 09/28/22 04:00 Pulse Ox 98 09/28/22 04:00 O2 Del Method Room Air 09/28/22 04:00 Discharge Plan Discharge Patient Disposition: Home Condition: Stable Prescriptions: New hydrocodone-acetaminophen 5-325 mg tablet 1 tab PO Q4H PRN (Reason: pain) Qty: 20 0RF acetaminophen 325 mg capsule 325 mg PO Q4H PRN (Reason: fever or pain) Qty: 60 0RF docusate sodium [Colace] 100 mg capsule 100 mg PO BID Qty: 60 0RF ferrous sulfate [Iron (ferrous sulfate)] 325 mg (65 mg iron) tablet 325 mg PO BID Qty: 60 0RF ibuprofen 800 mg tablet 800 mg PO TID PRN (Reason: pain) Qty: 60 0RF Continued (DME) blood-glucose meter [Accu-Chek Guide Glucose Meter] Misc See Rx Instructions .ROUTE .MEDSUPPLY Qty: 1 0RF Rx Instructions: As directed (DME) Accu-Chek Guide test strips Strip See Rx Instructions .ROUTE .MEDSUPPLY Qty: 100 0RF Rx Instructions: As directed (DME) Comfort Touch Ult Thin Lancets 31 gauge misc See Rx Instructions .ROUTE .MEDSUPPLY Qty: 100 0RF Rx Instructions: As directed famotidine 20 mg tablet See Rx Instructions .ROUTE .COMPLEX Qty: 60 3RF Dose Instruction: TAKE 1 TABLET BY MOUTH TWICE A DAY Rx Instructions: TAKE 1 TABLET BY MOUTH TWICE A DAY labetalol 100 mg tablet 10 mg PO BID Discharge Orders: Discharge Order (Routine); Ordered 09/28/22 Ordered By: Kody Gonzalez Referrals: Kody Gonzalez MD [Physician] - 2 weeks Discharge Diet: Usual diet Discharge Activity: Limit activity as instructed Patient Instructions: Depression (DC), Bleeding (DC), Preeclampsia and Eclampsia After Delivery (GEN), OB [facility], OB Discharge Report, OB Food/Drug Interaction Guide, Opioid Safety, OB Home Care Activity Restrictions/Additional Instructions: 1. Please call [facility] on next working day to make your post-operative appointment in 2 weeks. 2. Please stay home until you come back to the clinic on first post-hospatilization check up. 3. Please follow instructions on your medications CAREFULLY. 4. If you have abdominal incision, do not cover it unless dressing is necessary because of drainage. OK to shower, but avoid bath. Leave steri-strips until they fall off. If they are still on one week after surgery, you may remove them. 5. If you had vaginal surgery or vaginal repair, Dr. Gonzalez may instruct you to take SITZ bath. 6. Yellow, blood tinged odorous vaginal discharge is usually normal after hysterectomy or vaginal surgeries. 7. No SEXUAL INTERCOURSE, tampons, or douches until you are completely released from the post-operative care. 8. Avoid constipation by eating right and maybe using some Metamucil or Milk of Magnesia. 9. All prescription refills are given during the working hours. Please do no wait till it runs out. Call the clinic at [phone] before your medication runs out. The clinic will get in touch with your doctor to prescribe medications if necessary. 10. Please remain within 40 mile radius from our hospital because emergencies do happen now and then during the post-operative period. 11. If you have stairs at home, take one step at a time slowly and minimize the number of trips. It helps to stay in one floor for the next few days. No lifting except what you can lift by one hand until you are released from the post-operative care. 12. Driving is discouraged until you are well healed. It may be 3-4 weeks before you feel strong enough to drive. You should be able to turn and look through the rear window without pain and you should be able to push the brake pedal very hard without pain before you drive. No fast rules, but SAFETY should be your primary concern. DO NOT drive if you are on sedating medications such as narcotics. 13. Call the clinic (during working hours) to make urgent appointment or go to the Emergency room, if any of the following occurs: i. Vaginal bleeding becomes heavy, more than a period. ii. Incision becomes red and sore, or drains pus. iii. Your TEMPERATURE is over 100.4F or you have chill. iv. IV site becomes red and swollen (a little ``knot?? is usually OK) v. Persistent nausea and vomiting vi. Persistent constipation or diarrhea vii. Rash or allergic reaction to medications. Discharge Attestations UTILIZATION MANAGEMENT MANAGER Time Spent in Discharge Care*: greater than 30 min Status at Discharge: Cognitive status at discharge: cognitively intact, Behavioral status at discharge: cooperative, Coding Level of Care Code Acute Code for Chg Fwd Diagnoses Status post delivery Z98.891
[2022-09-28] MEDS: prenatal vitamin Capsule 1 CAP PO (09:19)
[2022-09-28] MEDS: famotidine 20 mg Tablet PO (09:20)
[2022-09-28] MEDS: ibuprofen 800 mg tablet PO (09:20)
[2022-09-28] MEDS: labetalol 200 mg Tablet 100 MG PO (09:20)
[2022-09-28] MEDS: docusate sodium 100 mg Capsule PO (09:20)
[2022-09-28] MEDS: ferrous sulfate EC 325 mg Tablet PO (09:20)
[2022-09-28 10:00] VITALS: BP 108/69; BP 122/58; PULSE 80; PULSE 83; RESP 15; TEMP 36.8; TEMP 36.9; O2SAT 96; O2SAT 99
== END 2022-09-28 10:38 | disposition home or self-care (01) | DRG 788 ==
PROVIDERS: Admitting Provider Obstetrics & Gynecology; PCP Family Medicine; Visit Provider Obstetrics & Gynecology
PROC: 10D00Z1 Extraction of Products of Conception, Low, Open Approach (ICD-10-PCS; CPT 59514; principal; 2022-09-26 07:00)
DX: O34.211 Maternal care for low transverse scar from previous cesarean delivery (principal); Z3A.40 40 weeks gestation of pregnancy; Z37.0 Single live birth; O48.0 Post-term pregnancy; O16.4 Unspecified maternal hypertension, complicating childbirth; O24.92 Unspecified diabetes mellitus in childbirth; Z87.891 Personal history of nicotine dependence
CPT/HCPCS: 36415; 51702; 59025; 59409; 85025; 85027; 86900; 96374; 96375; 96376; C9290; J0690; J1200; J1885; J2274; J2405; J2590; J2765; J3010; J3490; J7030; J7120; J7121

== ENCOUNTER → 2022-11-08 10:00 | Outpatient (BNVA) | payer BC, MEDICAID, SELFPAY | PROVIDERS: PCP Family Medicine; Visit Provider Obstetrics & Gynecology | DX: O24.439 Gestational diabetes mellitus in the puerperium, unspecified control (principal); Z3A.00 Weeks of gestation of pregnancy not specified | CPT/HCPCS: 82947 ==

== ENCOUNTER → 2024-06-11 09:11 | Outpatient (BNVA) | payer BC, MEDICAID, SELFPAY | PROVIDERS: PCP Family Medicine; Visit Provider Emergency Medicine | DX: R39.9 Unspecified symptoms and signs involving the genitourinary system (principal) | CPT/HCPCS: 81000; 87086 ==